=== PATIENT | male | born 1965 | race Caucasian/White ===

== ENCOUNTER 2019-10-17 20:07 | Emergency (ER) | payer SELFPAY ==
--- NOTE | ~2019-10-17 | XR_ITS ---
EXAMINATION: XR chest 1V portable DATE: 10/17/2019 20:33 INDICATION: Fall down stairs. Cough. TECHNIQUE: frontal view of the chest was obtained. COMPARISON: Chest radiograph dated 09/18/2005 FINDINGS: The lungs remain clear with no focal airspace opacities, pulmonary edema, pleural effusion or pneumot horax. The cardiomediastinal silhouette is normal. Visualized bones and soft tissues are unremarkable . IMPRESSION: 1. Normal chest radiograph. Reviewed, dictated and finalized at location A. IMPRESSION: 1. Normal chest radiograph.
--- NOTE | ~2019-10-17 | CT_ITS ---
EXAMINATION: CT cervical spine wo con DATE: 10/17/2019 20:31 INDICATION: Fall down stairs while intoxicated with loss of consciousness. TECHNIQUE: Computed tomography (CT) of the cervical spine was performed without intravenous contrast. Automated exposure control and iterative reconstruction technique were employed. The dose-length pro duct was 469.91 mGy-cm. COMPARISON: Radiograph dated 08/30/2007 FINDINGS: Straightening of the normal cervical lordosis. Mild cervical thoracic levocurvature. 2 mm retrolisthe sis C5 on C6. Vertebral body heights are normal. No acute fracture. Moderate to severe disc height lo ss at C5-C6 and C6-C7. Mild disc height loss at C7-T1 through T2-T3. Atherosclerotic calcification is at the bilateral carotid bulbs. 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 T he following disc levels are specifically discussed: C2-C3: The disc does not extend beyond the endplate margin. There is mild bilateral uncovertebral silvia nt osteoarthritis. There is mild right and moderate left facet joint osteoarthritis. There is mild le ft and minimal right neural foraminal stenosis. There is no central canal stenosis. C3-C4: The disc does not extend beyond the endplate margin. There is mild left and minimal right unco vertebral joint osteoarthritis. There is mild left and mild to moderate right facet joint osteoarthri tis. There is minimal left neural foraminal stenosis. There is no central canal stenosis. C4-C5: Disc is mildly bulging. There is mild bilateral uncovertebral joint osteoarthritis. There is m inimal bilateral facet joint osteoarthritis. There is minimal right neural foraminal stenosis. There is mild central canal stenosis. C5-C6: Disc is bulging. There is severe bilateral uncovertebral joint osteoarthritis. There is mild b ilateral facet joint osteoarthritis. There is mild left and mild to moderate right neural foraminal s tenosis. There is mild central canal stenosis. C6-C7: Disc is bulging. There is severe bilateral uncovertebral joint osteoarthritis. There is mild b ilateral facet joint osteoarthritis. There is mild bilateral neural foraminal stenosis. There is mild central canal stenosis. C7-T1: The disc does not extend beyond the endplate margin. There is no uncovertebral joint osteoarth ritis. There is mild to moderate left and severe right facet joint osteoarthritis. There is mild righ t neural foraminal stenosis. There is no central canal stenosis. IMPRESSION: 1. Moderate cervical spondylosis. No acute osseous abnormality. Reviewed, dictated and finalized at location A.
--- NOTE | ~2019-10-17 | CT_ITS ---
EXAMINATION: CT brain wo con DATE: 10/17/2019 20:31 INDICATION: Fall down stairs with loss of consciousness TECHNIQUE: Computed tomography (CT) of the head was performed without intravenous contrast. Sagittal and coronal reconstructions were performed. The mA was adjusted according to patient size. Iterative reconstruction technique was employed. The dose-length product was 605.33 mGy-cm. COMPARISON: None FINDINGS: No fracture. No acute intracranial hemorrhage, acute infarction or abnormal extra axial fluid collect ion. Ventricles are normal and symmetric. No mass/mass effect. Disconjugate gaze. Orbits are otherwis e normal. Mastoid air cells and middle ear cavities are clear. Mild mucosal thickening in the bilater al ethmoid and sphenoid sinuses. IMPRESSION: 1. No fracture or acute intracranial process. Reviewed, dictated and finalized at location A.
--- NOTE | 2019-10-17 20:12 | ECG_ITS ---
Measurements Intervals [place] Rate: 106 P: 130 MD: 199 QRS: 75 QRSD: 93 T: 52 QT: 365 QTc: 485 Interpretive Statements SINUS TACHYCARDIA POSSIBLE LEFT VENTRICULAR HYPERTROPHY ABNORMAL ECG Electronically Signed On 10-18-2019 7:12:20 CDT by Fortunato Louise D.O.
[2019-10-17 20:14] VITALS: BP 143/102; PULSE 115; RESP 18; TEMP 36.2; O2SAT 94
[2019-10-17] MEDS: LACTATED RINGERS 1,000 ML 999 ML IV CONT (20:34)
--- NOTE | 2019-10-17 20:40 | ED.FALL ---
HPI - Fall General Chief Complaint: Fall Stated Complaint: fall down stairs/ OD? Source: EMS Mode of arrival: EMS Limitations: intoxication History of Present Illness HPI Narrative: This patient is a 52 yo male who presents from home Via for evaluation after fall down stairs. EMS states they were called because patient fell down stairs and he was unresponsive. EMS gave patient 10 mg narcan before he would respond. Patient admits to drinking alcohol tonight and drinking daily, but he denies drug use. He denies any complaints. He does not remember how or why he fell down the stairs. He states he does not remember anything . He is in c collar MD complaint: fall Fall from: down stairs (#) Related Data Home Medications Medication Instructions Recorded Confirmed hydrocodone-acetaminophen [Vicodin tablet 10/17/19 ] Allergies Allergy/AdvReac Type Severity Reaction Status Date / Time No Known Allergies Allergy Mild Unverified 10/17/19 20:20 Review of Systems Review of Systems: All systems reviewed & are unremarkable except as noted in HPI and below Constitutional: Constitutional: Denies chills and Denies fever(s) Cardiovascular: Cardiovascular: Denies chest pain and Denies radiating jaw, neck or arm pain Respiratory: Respiratory: Reports cough (chronic cough) and Denies dyspnea Gastrointestinal: Gastrointestinal: Denies abdominal pain and Denies nausea Musculoskeletal: Musculoskeletal: Denies back pain Neurologic: Denies dizziness, Denies headache(s), Denies focal weakness and Denies weakness PMFSH Past Medical History Medical History (Updated 10/18/19 @ 00:00 by Background Daemon) Patient denies medical problems Family History Family History (Updated 01/26/16 @ 23:19 by DOCTOR UNKNOWN) Mother Family history of diabetes mellitus in first degree relative Social History Social History (Updated 10/17/19 @ 20:47 by Nia Powers MD) Smoking packs per day: 1 Smoking cigarettes per day: 20.0 Smoking status: Current every day smoker Alcohol intake: current Substance use: never Gender identity (if verbalized by the patient): Male Exam Const: General: no acute distress and alert Orientation/consciousness: patient oriented x3 HENMT: Head: normocephalic and atraumatic Ears: external ears normal General nose exam: Normal external nose present Face and sinus: normal facial exam, sinuses nontender and face symmetric Mouth: Yes Normal oral and palatal mucosa present, Yes lip normal and Yes oropharynx normal Eyes: Pupils: Equal, round and reactive pupils present EOM: EOMs intact bilaterally Neck: Other: in cervical collar Chest: Chest palpation & inspection: normal inspection of the chest and no tenderness Resp: Effort & Inspection: normal respiratory effort and no retractions Auscultation: clear to auscultation bilaterally Cardio: Rate: tachycardic Rhythm: regular rhythm Heart sounds: no murmurs Skin: General skin exam: normal color Rashes: no rashes Neuro: General: patient oriented x3, moves all extremities and CN's II-XI intact bilaterally Course Reevaluation(s) Reevaluation #1: Patient is standing up and walking around room with steady gait. He has no complaints and he is asking to go home. I discussed results with patient and he states he only take 3 norcos a day and he does admit to cocaine use. Date: 10/17/19 Time: 22:06 Vital Signs Vital signs: Vital Signs Temperature 97.1 F L 10/17/19 20:14 Pulse Rate 115 H 10/17/19 20:14 Respiratory Rate 18 10/17/19 20:14 Blood Pressure 143/102 H 10/17/19 20:14 Pulse Oximetry 94 10/17/19 20:14 Temperature 97.1 F L 10/17/19 20:14 Pulse Rate 115 H 10/17/19 20:14 Respiratory Rate 18 10/17/19 20:14 Blood Pressure 143/102 H 10/17/19 20:14 Pulse Oximetry 94 10/17/19 20:14 MDM - Fall Lab Data Attestation: I reviewed the patient's lab results. Result diagrams: 10/17/19
[2019-10-17 20:56] LABS: Basophils Absolute Auto 0.1 K/mm3 (0.0-0.1); Basophils Percent Auto 0.6 % (0.2-1.2); Eosinophils Absolute Auto 0.2 K/mm3 (0-0.3); Eosinophils Percent Auto 2.2 % (0-4.4); Hematocrit 42.9 % (42.0-52.0); Hemoglobin 14.2 g/dL (14.0-18.0); Immature Granulocyte Absolute 0.06 K/mm3 (0.00-0.031); Immature Granulocyte Percent A 0.7 % (0-0.5); Lymphocytes Absolute Auto 2.58 K/mm3 (0.9-3.2); Lymphocytes Percent Auto 28.9 % (18.3-44.2); Mean Corpuscular HGB Conc 33.1 g/dl (32-36); Mean Corpuscular Volume 96.6 fl (80-100); Mean Platelet Volume 10.5 fl (7.4-10.4); Monocytes Absolute Auto 0.5 K/mm3 (0.1-0.6); Monocytes Percent Auto 5.4 % (2.6-8.5); Neutrophils Absolute Auto 5.6 K/mm3 (1.3-6.7); Neutrophils Percent Auto 62.2 % (45.5-73.1); Platelet Count Result 252 k/mm3 (150-375); Red Blood Count 4.44 M/mm3 (4.6-6.20); Red Cell Distribution Width 12.4 % (11.5-14.5); White Blood Count 8.9 K/mm3 (4.5-10.0)
--- NOTE | 2019-10-17 20:58 | PC.NURSE ---
spoke with patient verbal ok given by patient to give information to chung contreras. chung called and given update on patient condition.
[2019-10-17 21:00] LABS: Add Urine Microscopic? YES; Appearance Urine Clear (Clear); Bilirubin Urine Negative (Negative); Blood Urine 1+ (Negative); Color Urine Straw (Yellow); Glucose Urine UA 2+ mg/dL (Negative); Ketones Urine Negative (Negative); Leukocyte Esterase Ur Negative LEU/UL (Negative); Nitrate Urine Negative (Negative); Protein Urine 1+ mg/dL (Negative); Specific Grav Ur 1.012 (1.001-1.035); Squamous Epithelial Cell Urine Rare /hpf (Few); Urobilinogen Urine Negative mg/dL (<2.0); WBC Urine 0-3 /hpf
[2019-10-17 21:04] LABS: Prothrombin Time 12.4 Seconds (11.1-14.7)
[2019-10-17 21:08] LABS: Alanine Aminotransferase 27 U/L (4-50); Albumin Level 4.6 g/dL (3.5-5.1); Alkaline Phosphatase 66 U/L (38-126); Aspartate Amino Transferase 34 U/L (17-59); Bilirubin,Total 0.2 mg/dL (0.2-1.3); Blood Urea Nitrogen 9 mg/dL (9-20); Calcium 8.4 mg/dL (8.4-10.2); Carbon Dioxide 21 mmol/L (22-30); Chloride 103 mmol/L (98-107); Estimated Glomerular Filt Rate > 60; Ethanol 277 mg/dL (<10); Glucose 165 mg/dL (75-110); Potassium 3.5 mmol/L (3.4-5.0); Sodium 139 mmol/L (137-145)
[2019-10-17 21:10] LABS: Amphetamine Screen Urine Negative (Negative); Barbiturate Screen Urine Negative (Negative); Benzodiazepines Screen Urine Negative (Negative); Cannabinoid Screen Urine Negative (Negative); Cocaine Screen Urine Positive (Negative); Methadone Screen Urine Negative (Negative); Opiate Screen Urine Positive (Negative); Phencyclidine Screen Urine Negative (Negative)
--- NOTE | 2019-10-17 21:40 | PC.NURSE ---
pt removed c collar himself and states he wants to sign himself out. made aware. pt needs to have someone here to come in and pick him up.
--- NOTE | 2019-10-17 21:40 | PC.NURSE ---
Called Chastity Bishop ([phone]) left v-message to contact or someone to come and nut picker patient and/or to return call.
--- NOTE | 2019-10-24 05:52 | PC.NURSE ---
LATE ENTRY This note is being entered to document information to the patient's record. The following information was omitted on 10/17/19, LR STOP TIME 9979.
== END 2019-10-17 22:30 | disposition home or self-care (01) ==
PROVIDERS: Emergency Provider General Practice; PCP Internal Medicine
DX: F10.129 Alcohol abuse with intoxication, unspecified (principal); Y90.8 Blood alcohol level of 240 mg/100 ml or more; F17.210 Nicotine dependence, cigarettes, uncomplicated; R00.0 Tachycardia, unspecified; R94.31 Abnormal electrocardiogram [ECG] [EKG]; M47.812 Spondylosis without myelopathy or radiculopathy, cervical region; W10.9XXA Fall (on) (from) unspecified stairs and steps, initial encounter
CPT/HCPCS: 36415; 70450; 71045; 72125; 80053; 80307; 81001; 83735; 85025; 85610; 85730; 93005; 96360; 99284; J7120; L0140

== ENCOUNTER 2021-10-09 16:56 | Inpatient (IN) | payer OTHER, SELFPAY ==
[2021-10-09] VITALS (7 sets, daily range): BP systolic 112–157; BP diastolic 85–100; PULSE 84–108; RESP 16–20; TEMP 36.6–36.7; O2SAT 95–99; BMI 24.5
--- NOTE | ~2021-10-09 | US_ITS ---
EXAMINATION: US abdomen limited DATE: 10/10/2021 17:36 INDICATION: Elevated LFTs. TECHNIQUE: Multiple grayscale and Doppler ultrasound images of the abdomen were obtained. COMPARISON: None available FINDINGS: The head and body of the pancreas are normal. The pancreatic tail is obscured by bowel gas. The liver measures 23.9 cm. The liver demonstrates increased echogenicity, heterogenous echotexture, and decreased through transmission. No liver mass. No surface nodularity. Normal hepatopetal flow in the main portal vein. No pericholecystic fluid or stones. Negative sonographic Wren sign. Gallblad micheline wall thickness 4 mm. The normal common bile duct measures 4 mm. 4.1 cm simple right renal cyst. IMPRESSION: 1. Hepatomegaly. 2. Increased liver echogenicity which can be seen in steatosis, hepatitis, and fibrosis. 3. Nonspecific gallbladder wall thickening. 4. Simple right renal cyst. Reviewed, dictated and finalized at location K.
--- NOTE | 2021-10-09 17:04 | ED.SYNCOPE ---
HPI - Syncope General Chief Complaint: Dizziness Stated Complaint: Weakness Time Seen by Provider: 10/09/21 16:59 Source: patient Mode of arrival: EMS Limitations: no limitations History of Present Illness HPI narrative: Pt states he felt like he was going to pass out earlier. Pt had no CP or palpitations. Pt denies vomiting or diarrhea or dark stools. Pt has not had similar episodes in past. MD complaint: felt faint and almost passed out Prodromal symptoms: lightheaded Context: at rest Injuries sustained associated with event: none Current symptoms: none Related Data Home Medications Medication Instructions Recorded Confirmed trazodone 50 mg tablet 50 mg PO QHS PRN 08/17/21 09/03/21 Allergies Allergy/AdvReac Type Severity Reaction Status Date / Time No Known Allergies Allergy Mild Verified 10/09/21 17:04 Review of Systems Review of Systems: All systems reviewed & are unremarkable except as noted in HPI and below PMFSH Past Medical History Medical History BMI 24.0-24.9, adult Carpal tunnel syndrome on both sides Patient denies medical problems Rotator cuff tear arthropathy of right shoulder Seizure disorder Family History Family History Mother Family history of diabetes mellitus in first degree relative Father No problems noted. Sibling No problems noted. Social History Social History Smoking packs per day: 1 Smoking cigarettes per day: 20.0 Tobacco type: cigarettes Alcohol intake: current Substance use: never Gender identity (if verbalized by the patient): Male Exam Const: General: no acute distress Orientation/consciousness: patient oriented x3 HENMT: Head: normal to inspection Eyes: Conjunctivae: conjunctivae normal Pupils: Equal, round and reactive pupils present Neck: Neck: normal visual inspection Chest: Chest palpation & inspection: normal inspection of the chest Resp: Effort & Inspection: normal respiratory effort Auscultation: clear to auscultation bilaterally Cardio: Rate: regular rate Rhythm: regular rhythm GI: GI Palp: Yes Soft to palpation Auscultation: normal bowel sounds Skin: General skin exam: normal color Neuro: General: patient oriented x3, moves all extremities, no meningeal signs and no focal motor deficits Speech: normal speech Extrem: General: normal to inspection and no clubbing, cyanosis or edema Psych: Mental Status: mental status grossly normal Thought content: Yes Normal thought content present Course Vital Signs Vital signs: Vital Signs Temperature 97.8 F 10/09/21 16:58 Pulse Rate 88 10/09/21 16:58 Respiratory Rate 16 10/09/21 16:58 Blood Pressure 112/87 10/09/21 16:58 Pulse Oximetry 98 10/09/21 16:58 Temperature 97.8 F 10/09/21 16:58 Pulse Rate 84 10/09/21 18:00 Respiratory Rate 16 10/09/21 18:00 Blood Pressure 123/85 10/09/21 18:00 Pulse Oximetry 97 10/09/21 18:00 MDM - Syncope Lab Data Result diagrams: 10/09/21 17:21 10/09/21 17:21 Labs: Lab Results 10/09/21 10/09/21 10/09/21 Range/Units 17:21 17:21 17:21 WBC 5.6 (4.5-10.0) K/mm3 RBC 4.28 L (4.6-6.20) M/mm3 Hgb 14.8 (14.0-18.0) g/dL Hct 37.0 L (42.0-52.0) % MCV 86.4 (80-100) fl MCH 34.6 H (26-34) pg MCHC 40.0 H (32-36) g/dl RDW 14.9 H (11.5-14.5) % Plt Count 136 L (150-375) k/mm3 MPV 11.7 H (7.4-10.4) fl Immature Gran % (Auto) 0.4 (0-0.5) % Neut % (Auto) 71.2 (45.5-73.1) % Lymph % (Auto) 22.7 (18.3-44.2) % Chambers % (Auto) 4.8 (2.6-8.5) % Eos % (Auto) 0.2 (0-4.4) % Baso % (Auto) 0.7 (0.2-1.2) % Lymph # (Auto) 1.28 (0.9-3.2) K/mm3 Chambers # (Auto) 0.3 (0.1-0.6) K/mm3 Eos # (Auto) 0.0 (0-0.3) K/mm3 Baso # (Auto) 0.0 (0.0
--- NOTE | 2021-10-09 17:08 | ECG_ITS ---
Measurements Intervals [place] Rate: 87 P: 20 NV: 149 QRS: 81 QRSD: 92 T: 77 QT: 408 QTc: 493 Interpretive Statements SINUS RHYTHM LEFT VENTRICULAR HYPERTROPHY ABNORMAL ECG COMPARED TO ECG 10/17/2019 20:36:14 SINUS RHYTHM NOW PRESENT Electronically Signed On 10-09-2021 18:09:59 CDT by Kayode Abbott M.D.
[2021-10-09] MEDS: SODIUM CHLORIDE 0.9% IV 1,000 ML 999 ML IV CONT (17:25)
[2021-10-09 17:46] LABS: Alanine Aminotransferase 378 U/L (4-50); Albumin Level 2.9 g/dL (3.5-5.1); Alkaline Phosphatase 344 U/L (38-126); Anion Gap 16 mmol/L (8-16); Bilirubin,Total 3.1 mg/dL (0.2-1.3); Blood Urea Nitrogen 23 mg/dL (9-20); Calcium 6.9 mg/dL (8.4-10.2); Carbon Dioxide 14 mmol/L (22-30); Chloride 102 mmol/L (98-107); Estimated CRCL calculation 53 ml/min; Estimated Glomerular Filt Rate 53; Glucose 109 mg/dL (65-110); Magnesium 1.3 mg/dL (1.6-2.3); Potassium 4.2 mmol/L (3.4-5.0); Sodium 132 mmol/L (137-145)
[2021-10-09 17:54] LABS: Aspartate Amino Transferase 747 U/L (17-59); Basophils Percent Auto 0.7 % (0.2-1.2); Eosinophils Percent Auto 0.2 % (0-4.4); Ethanol 291 mg/dL (<10); Hemoglobin 14.8 g/dL (14.0-18.0); Immature Granulocyte Absolute 0.02 K/mm3 (0.00-0.031); Immature Granulocyte Percent A 0.4 % (0-0.5); Lymphocytes Absolute Auto 1.28 K/mm3 (0.9-3.2); Lymphocytes Percent Auto 22.7 % (18.3-44.2); Mean Corpuscular Hemoglobin 34.6 pg (26-34); Mean Corpuscular Volume 86.4 fl (80-100); Mean Platelet Volume 11.7 fl (7.4-10.4); Monocytes Absolute Auto 0.3 K/mm3 (0.1-0.6); Monocytes Percent Auto 4.8 % (2.6-8.5); Neutrophils Percent Auto 71.2 % (45.5-73.1); Platelet Count Result 136 k/mm3 (150-375); Red Blood Count 4.28 M/mm3 (4.6-6.20); Red Cell Distribution Width 14.9 % (11.5-14.5); White Blood Count 5.6 K/mm3 (4.5-10.0)
[2021-10-09 17:55] LABS: Troponin I 0.033 ng/mL (0.000-0.034)
[2021-10-09 18:35] LABS: Anisocytosis 1+ (NORMAL); Large Platelets Present; Platelet Estimate Decreased (Adequate); Stomatocytes 2+ (NORMAL)
[2021-10-09] MEDS: CALCIUM CHLOR 1,000MG/100ML NS 1,000 MG/100 ML BAG 100 MG IVPB (19:26)
--- NOTE | 2021-10-09 20:54 | ADMGEN ---
This patient, Gerald Lewis, was admitted to IMU Room 202- at 2053. Patient/family oriented to hospital policies and general routines including ID bracelet, bed and alarms, visiting hours, pain management, procedures, bathroom and other care routines, personal items, smoking policy, room service/diet, and visiting hours. Information on how to activate the Rapid Response Team has been discussed. Patient/Family are encouraged to report perceived risks to care and to ask questions if they do not understand what they are told or what they should do.
--- NOTE | 2021-10-09 22:00 | PM.IMHP ---
H&P: HPI History of Present Illness Date/Time: 10/09/21 22:00 Chief Complaint: Lightheadedness and weakness. Narrative: This is a 55-year-old male smoker with a longstanding history of alcoholism, seizures which were possibly related to alcohol withdrawal, hypertension, and hyperlipidemia who presented to the ED via EMS for evaluation of lightheadedness and weakness. He stopped taking his medications about 1 month ago at which time he also started drinking again. He does not seem forthcoming with the amount of alcohol he is consuming at this time but had previously drank up to 2 fifths of whiskey a day. Today he tells me he only took a couple of shots early this morning however his alcohol level today on arrival was 291. In any event, just prior to arrival he was at a friend's house when suddenly felt warm, nauseated, lightheaded, dizzy, and profoundly weak. For some reason he thought that he was going to have a seizure however he did not. He laid on the back of his car until he felt better and drove himself home to rest. Daughter apparently found him sitting in the car, unresponsive and she called 911. He was alert and oriented x4 on EMS arrival and was able to ambulate to the stretcher. Vital signs were stable on arrival although his blood pressures have been running high. Pertinent labs include a sodium of 142, chloride 102, carbon dioxide 14, anion gap 16, BUN 23, creatinine 1.40, calcium 6.9, magnesium 1.3, total bili III 0.1, AST 747, ALT 38, and alkaline phosphatase 344. The patient is being admitted in this setting for IV fluid rehydration and electrolyte replacement. At the time my evaluation he is feeling better and he is quite chatty and in good spirits. He is not feeling lightheaded or vertiginous at this time. He denies headache and neck ache. No auditory visual changes. No focal weakness or paresthesias. No chest pain or shortness of breath. He had some nausea earlier with dry heaves but no vomiting. He had diarrhea last week but that has resolved. No dysuria. Review of Systems Review of Systems: Twelve systems were reviewed. Patient reports having history of seizure, possibly related to alcohol withdrawal but he is not certain. He was on seizure medication for a period of time before he took himself off that. As mentioned above he took himself off of all his medication but states he takes his trazodone although I do not know if he gets that from friends are off the street as that has not been prescribed for him for a couple of months. He denies hallucinations, shakes, and sweats at this time. Except as documented, all other systems were reviewed and are negative. [facility] Past Medical History Medical History (Updated 10/10/21 @ 00:19 by Divina Lucas PA-C) Alcoholism B12 deficiency Hyperlipidemia Hypertension Seizure disorder Tobacco abuse Vitamin D deficiency Surgical History Surgical History History of bilateral carpal tunnel release History of repair of right rotator cuff Family History Family History Mother Family history of diabetes mellitus in first degree relative Cancer Cerebrovascular accident Father Spleen cancer Asthma Sibling No problems noted. Social History Social History (Updated 10/10/21 @ 00:17 by Divina Lucas PA-C) Social History: Surrogate decision maker: Sangeeta Lewis, mother. Code status: Full code. Smoking packs per day: 1 Smoking cigarettes per day: 20.0 Smoking status: Current every day smoker Tobacco type: cigarettes Alcohol intake: current Alcohol use details: Up to 2 5th of whiskey a day. Substance use: former Substance use type: marijuana Other substance usage details: street pain meds Spiritual care concerns: No Meds Home Medications and Allergies Home Medications Medication Instructions Recorded Confirmed Type lisin
[2021-10-10] VITALS (16 sets, daily range): BP systolic 136–162; BP diastolic 81–99; PULSE 80–116; RESP 12–24; TEMP 36.7–37.6; O2SAT 96–99
[2021-10-10] MEDS: MAGNESIUM SULF 2 GM/WATER 50ML 2 GM/50 ML BAG IVPB (00:40)
[2021-10-10] MEDS: THIAMINE HCL 200 MG/2 ML VIAL 100 MG IV PUSH (00:40)
[2021-10-10] MEDS: traZODone HCL 50 MG TABLET PO ×2 (00:40→20:44)
[2021-10-10 00:51] LABS: Creatine Kinase 157 U/L (55-170)
[2021-10-10 00:54] LABS: INR 1.1; Prothrombin Time 14.2 Seconds (11.1-14.7)
[2021-10-10 00:55] LABS: Partial Thromboplastin Time 26.7 SECONDS (22.3-36.8)
[2021-10-10 00:57] LABS: Magnesium 1.1 mg/dL (1.6-2.3)
[2021-10-10 01:07] LABS: Troponin I 0.027 ng/mL (0.000-0.034)
[2021-10-10 01:43] LABS: Anion Gap 16 mmol/L (8-16); Blood Urea Nitrogen 21 mg/dL (9-20); Calcium 7.7 mg/dL (8.4-10.2); Carbon Dioxide 15 mmol/L (22-30); Chloride 103 mmol/L (98-107); Estimated CRCL calculation 73 ml/min; Estimated Glomerular Filt Rate > 60; Glucose 123 mg/dL (65-110); Sodium 134 mmol/L (137-145)
[2021-10-10] MEDS: LORazepam INJ (*CRX) 2 MG/ML VIAL 1 MG IV PUSH ×3 (01:54→14:13)
[2021-10-10] MEDS: SODIUM CHLORIDE 0.9% IV 2,200 ML/1,000 ML BAG 999 ML IV CONT ×2 (01:55→02:54)
[2021-10-10 03:34] LABS: Reflex Lactic Acid Yes or No Add Lactic
[2021-10-10] MEDS: SODIUM CHLORIDE 0.9% IV 1,000 ML 100 ML IV CONT (03:56)
[2021-10-10 05:13] LABS: INR 1.2; Prothrombin Time 14.6 Seconds (11.1-14.7)
[2021-10-10 05:14] LABS: Partial Thromboplastin Time 27.2 SECONDS (22.3-36.8)
[2021-10-10 05:17] LABS: Appearance Urine Clear (Clear); Bilirubin Urine Negative (Negative); Blood Urine 1+ (Negative); Color Urine Yellow (Yellow); Glucose Urine UA Negative (Negative); Ketones Urine Negative (Negative); Leukocyte Esterase Ur Negative LEU/UL (Negative); Nitrate Urine Negative (Negative); Protein Urine Negative (Negative); Specific Grav Ur 1.025 (1.001-1.035); pH Urine 6.5 (5.0-9.0)
[2021-10-10 05:19] LABS: Lactic Acid 2.2 mmol/L (0.7-2.1)
[2021-10-10 05:31] LABS: Alanine Aminotransferase 324 U/L (4-50); Albumin Level 2.7 g/dL (3.5-5.1); Alkaline Phosphatase 340 U/L (38-126); Anion Gap 12 mmol/L (8-16); Bilirubin,Total 4.7 mg/dL (0.2-1.3); Blood Urea Nitrogen 15 mg/dL (9-20); Calcium 6.9 mg/dL (8.4-10.2); Carbon Dioxide 13 mmol/L (22-30); Chloride 106 mmol/L (98-107); Estimated CRCL calculation 90 ml/min; Estimated Glomerular Filt Rate > 60; Glucose 85 mg/dL (65-110); Magnesium 1.3 mg/dL (1.6-2.3); Phosphorus 3.9 mg/dL (2.5-4.5); Potassium 3.6 mmol/L (3.4-5.0); Sodium 131 mmol/L (137-145)
[2021-10-10 05:32] LABS: Add Urine Microscopic? NO
[2021-10-10 05:58] LABS: Hepatitis B Surface Antigen Negative (Negative)
[2021-10-10 06:04] LABS: HAV RESULT Negative (Negative); Hepatitis B Core IgM Result Negative (Negative)
[2021-10-10 06:16] LABS: Hepatitis C Virus Antibody Negative (Negative)
[2021-10-10 06:27] LABS: Aspartate Amino Transferase 1145 U/L (17-59)
--- NOTE | 2021-10-10 07:17 | PM.IMPN ---
Progress Note: A&P Assessment and Plan (1) Unresponsive episode: Code(s): R41.89 - Other symptoms and signs involving cognitive functions and awareness Status: Acute Assessment and Plan: He has been stable, alert, and oriented since arrival. Telemetry reviewed, no abnormal findings. Will continue to monitor on telemetry overnight to rule out cardiac dysrhythmia. Initiate seizure precautions. (2) Acute kidney injury: Code(s): N17.9 - Acute kidney failure, unspecified Status: Acute Assessment and Plan: Patient was rehydrated overnight with IV fluids, creatinine has normalized, CK was within normal limits. He appears euvolemic. Will continue to avoid nephrotoxic agents at this time, re-evaluate tomorrow. Continue strict in's and out's. IV Fluids dcrs'd to 75ml/hr. (3) Alcoholic hepatitis: Code(s): K70.10 - Alcoholic hepatitis without ascites Status: Acute Assessment and Plan: With acute kidney injury as well, CK within normal limits. Most likely his LFTs are elevated due to alcoholic hepatitis, AST elevated to 1145 today from 747 yesterday.Abdomen was tense on exam, though I question whether this was the result of his muscular tetany vs ascites. Right upper quadrant ultrasound ordered for this morning. Hepatitis panel normal. Coags within normal limits. (4) Hypocalcemia: Code(s): E83.51 - Hypocalcemia Status: Acute Assessment and Plan: Patient received calcium chloride in the emergency department. Calcium 6.9 today, corrected calcium 7.9. Will give calcium carbonate p.o. and will obtain EKG to check for QT prolongation. Negative Chvostek's sign. Repeat calcium level in a.m. (5) Hypomagnesemia: Code(s): E83.42 - Hypomagnesemia Status: Acute Assessment and Plan: Magnesium 1.3 today. Increased from 1.1 yesterday. Magnesium will be replaced and monitored. (6) Alcoholism: Code(s): F10.20 - Alcohol dependence, uncomplicated Status: Acute Assessment and Plan: Pt currently hypertensive, tachycardic, and tachypneic with reports that he hallucinated my presence at his bedside overnight. I suspect he is currently hallucinating, as he is responding to some external visual stimuli in the corner of his room. He reports additional episode of withdrawal seizures May of 2021, due to acute cessation of alcohol intake. He has received 1mg ativan per CIWA protocol, but CIWA score was still 11. Another 2mg Ativan given, and I transitioned his Librium from PRN to scheduled Q6 hrs, and continue his ativan PRN. We will continue to monitor him closely. Thiamine and folic acid supplementation initiated. (7) Hypertension: Code(s): I10 - Essential (primary) hypertension Status: Acute Assessment and Plan: Patient stopped all medications last month. His lisinopril and HCTZ are on hold due to having MARICHUY at time of admission, however his BUN and creatinine have normalized after rehydration. Will continue to monitor renal functions today, and if they remain normal, will re-initiate antihypertensives tomorrow. Subjective Date/time seen: 10/10/21 07:17 55-year-old male with history of alcohol abuse disorder, hypertension, and seizure disorder due to acute alcohol withdrawal, here after being discovered unresponsive by his daughter yesterday. He provided additional history today, in that May of 2021, his sister and he began to drink more, however he abruptly quit drinking and suffered a seizure on his job site, wherein he impaled himself onto a moving drill bit. He was hospitalized at [facility] in the ICU. He confirms he had a double shot of hard alcohol the morning of his admission here. He reports he did not sleep well last night, but does feel much better this morning. He asked if I was standing over his bed last night at 2 in the morning, and he keeps looking to his
[2021-10-10] MEDS: CALCIUM CARBONATE (OSCAL) 500 MG TABLET PO ×2 (08:45→17:22)
[2021-10-10 08:46] LABS: Hematocrit 30.6 % (42.0-52.0); Hemoglobin 12.7 g/dL (14.0-18.0); Mean Corpuscular Hemoglobin 35.5 pg (26-34); Mean Corpuscular Volume 85.5 fl (80-100); Mean Platelet Volume 12.4 fl (7.4-10.4); Platelet Count Result 112 k/mm3 (150-375); Red Blood Count 3.58 M/mm3 (4.6-6.20); Red Cell Distribution Width 15.8 % (11.5-14.5); White Blood Count 7.8 K/mm3 (4.5-10.0)
[2021-10-10] MEDS: FOLIC ACID 1 MG TABLET PO (08:46)
[2021-10-10] MEDS: THIAMINE HCL 100 MG TABLET PO (08:46)
[2021-10-10 08:47] LABS: Mean Corpuscular HGB Conc 41.5 g/dl (32-36)
--- NOTE | 2021-10-10 09:24 | ECG_ITS ---
Measurements Intervals [place] Rate: 97 P: -3 OR: 135 QRS: 77 QRSD: 93 T: 67 QT: 384 QTc: 489 Interpretive Statements SINUS RHYTHM LEFT VENTRICULAR HYPERTROPHY ABNORMAL ECG COMPARED TO ECG 10/09/2021 17:00:04 NO SIGNIFICANT CHANGES Electronically Signed On 10-10-2021 15:53:26 CDT by Kayode Abbott M.D.
[2021-10-10 10:07] LABS: Ammonia 13 umol/L (9-30)
[2021-10-10] MEDS: LORazepam INJ (*CRX) 2 MG/ML VIAL IV PUSH (11:03)
[2021-10-10] MEDS: MAGNESIUM CHLORIDE 64 MG TABLET PO (11:03)
[2021-10-10] MEDS: chlordiazePOXIDE (*CRX) 25 MG CAPSULE PO ×3 (11:04→23:43)
[2021-10-10 12:37] LABS: Glucose Point of Care 141 mg/dl (65-105)
[2021-10-10] MEDS: SODIUM CHLORIDE 0.9% IV 1,000 ML 75 ML IV CONT (14:57)
[2021-10-10 18:29] LABS: Glucose Point of Care 223 mg/dl (65-105)
[2021-10-11] VITALS (14 sets, daily range): BP systolic 123–158; BP diastolic 78–103; PULSE 80–117; RESP 16–20; TEMP 36.2–36.7; O2SAT 97–99
[2021-10-11] MEDS: LORazepam INJ (*CRX) 2 MG/ML VIAL 1 MG IV PUSH (03:04)
[2021-10-11] MEDS: SODIUM CHLORIDE 0.9% IV 1,000 ML 75 ML IV CONT ×2 (04:45→17:30)
[2021-10-11 06:04] LABS: Hematocrit 31.1 % (42.0-52.0); Immature Platelet Fraction Pct 19.2 % (0.9-11.2); Mean Corpuscular HGB Conc 35.4 g/dl (32-36); Mean Corpuscular Hemoglobin 32.5 pg (26-34); Mean Platelet Volume 12.4 fl (7.4-10.4); Platelet Count Result 88 k/mm3 (150-375); Red Blood Count 3.38 M/mm3 (4.6-6.20); Red Cell Distribution Width 15.7 % (11.5-14.5); White Blood Count 5.5 K/mm3 (4.5-10.0)
[2021-10-11 06:17] LABS: Alanine Aminotransferase 313 U/L (4-50); Albumin Level 2.9 g/dL (3.5-5.1); Alkaline Phosphatase 384 U/L (38-126); Anion Gap 5 mmol/L (8-16); Bilirubin,Total 3.4 mg/dL (0.2-1.3); Blood Urea Nitrogen 3 mg/dL (9-20); Calcium 7.4 mg/dL (8.4-10.2); Carbon Dioxide 28 mmol/L (22-30); Chloride 101 mmol/L (98-107); Estimated CRCL calculation 102 ml/min; Estimated Glomerular Filt Rate > 60; Glucose 113 mg/dL (65-110); Magnesium 1.1 mg/dL (1.6-2.3); Potassium 3.1 mmol/L (3.4-5.0); Sodium 134 mmol/L (137-145)
[2021-10-11 06:29] LABS: Aspartate Amino Transferase 937 U/L (17-59)
[2021-10-11] MEDS: chlordiazePOXIDE (*CRX) 25 MG CAPSULE PO ×3 (06:42→17:29)
--- NOTE | 2021-10-11 08:00 | PM.IMPN ---
Progress Note: A&P Assessment and Plan (1) Alcoholic hepatitis: Code(s): K70.10 - Alcoholic hepatitis without ascites Status: Acute Assessment and Plan: 10/10 Abd US showed: Hepatomegaly, increased liver echogenicity which can be seen in steatosis, hepatitis, and fibrosis. Nonspecific gallbladder wall thickening. Simple right renal cyst. Ammonia levels normal. No evidence of fulminant hepatitis at this point. Child-Peralta Score of 8. He continues to have transaminitis: AST 937, ALT 313, Alk Phos, 384. Most likely his LFTs are elevated due to alcoholic hepatitis. Thrombocytopenia and hypoalbuminemia are also present. INR 1.2. Counseled patient on alcohol cessation and available treatment programs, however patient is not interested in treatment at this point. - Continue to monitor LFTs - Consult placed to GI (2) Unresponsive episode: Code(s): R41.89 - Other symptoms and signs involving cognitive functions and awareness Status: Acute Assessment and Plan: Patient was reportedly found by his daughter unresponsive in his vehicle on 10/09. Patient has previously had with alcohol withdrawal seizures, as recently as May 2021. He does report alcohol intake the morning of 10/09, but he felt ill nonetheless. He has been stable, alert, and oriented since arrival. Telemetry reviewed, no abnormal findings today. No acute mental status changes. -CIWA and seizure precautions in place -continue to monitor telemetry. (3) Acute kidney injury: Code(s): N17.9 - Acute kidney failure, unspecified Status: Acute Assessment and Plan: Patient is back to baseline, and this MARICHUY has resolved. Patient continues to be hydrated with IV fluids. Patient was rehydrated with IV fluids, creatinine has normalized, CK was within normal limits. He appears euvolemic. - Continue strict in's and out's. - Continue IV fluids today. - Daily I & Os (4) Hypocalcemia: Code(s): E83.51 - Hypocalcemia Status: Acute Assessment and Plan: Calcium 7.4 today, corrected calcium 8.3. No QT prolongation seen on EKG. Significantly less tetany seen on exam today. - Continue calcium carbonate p.o. - Repeat calcium level in a.m. (5) Hypomagnesemia: Code(s): E83.42 - Hypomagnesemia Status: Acute Assessment and Plan: Magnesium still low at 1.1 today. 4g Mag sulfide given. Will continue to monitor. - Continue to monitor Mg to ideal levels >2 (6) Alcoholism: Code(s): F10.20 - Alcohol dependence, uncomplicated Status: Acute Assessment and Plan: CIWA scores have remained at 7, and pt required only one PRN dosing of ativan at 1400hrs yesterday. He has not required addition dosing of librium or ativan aside from his scheduled 25mg of librium. Patient informed me that he wishes to go home today, however I explained that we need to taper him off his CIWA protocol prior to discharge, which may take several days, and he still has several electrolyte and liver enzyme abnormalities that need to be corrected prior to discharge. He acknowledged understanding. - We will continue to monitor him closely. - Thiamine and folic acid supplementation continued. - Discuss alcohol treatment programs, patient is not interested and does not want to talk to anyone about options. (7) Hypertension: Code(s): I10 - Essential (primary) hypertension Status: Acute Assessment and Plan: His lisinopril and HCTZ were on hold due to having MARICHUY at time of admission, however his BUN and creatinine have normalized after rehydration. - Re-initiate Lisinopril/HCTZ today, as he is still hypertensive. - Continue to monitor renal functions. (8) Tobacco abuse: Code(s): Z72.0 - Tobacco use Status: Acute Assessment and Plan: Per nursing staff, patient was found smoking in his room yesterday, and his vape pen was confis
[2021-10-11] MEDS: MAGNESIUM SULF 4 GM/WATER100ML 4 GM/100 ML BAG IVPB (10:07)
[2021-10-11] MEDS: FOLIC ACID 1 MG TABLET PO (10:07)
[2021-10-11] MEDS: THIAMINE HCL 100 MG TABLET PO (10:07)
[2021-10-11] MEDS: CALCIUM CARBONATE (OSCAL) 500 MG TABLET PO ×2 (10:07→17:30)
[2021-10-11] MEDS: lisinopriL 20 MG TABLET PO (10:08)
[2021-10-11] MEDS: hydroCHLOROthiazide 12.5 MG CAPSULE PO (10:08)
[2021-10-11] MEDS: POTASSIUM CHLORIDE 20 MEQ PACKET (FOR LIQUID) PO (10:11)
[2021-10-11] MEDS: NICOTINE (*PBKC) 14 MG PATCH 1 PATCH TRANSDERM (12:06)
[2021-10-11 13:48] LABS: Glucose Point of Care 165 mg/dl (65-105)
--- NOTE | 2021-10-11 14:41 | WPDGICN ---
Assessment and Plan Assessment and plan (1) Alcoholic hepatitis: Code(s): K70.10 - Alcoholic hepatitis without ascites Status: Acute Assessment and Plan: Patient with markedly elevated LFTs most consistent with alcoholic hepatitis. Patient is developed thrombosed cytopenia during follow-up at our hospital. Also noted to have a low albumin level. Ultrasound of the gall gallbladder revealed what appears to be a fatty liver. And hepatomegaly. Plan is for patient have strict alcohol avoidance. Long discussion with patient regarding alcoholic hepatitis and possibility for ultimate cirrhosis and scar tissue within liver. Risk factor for deterioration with increased bleeding poor mental status and higher risk for cancer of the liver. At this point with alcohol abstinence suggest follow-up LFTs. This will need to continue after discharge. Getting established with a support group is strongly recommended. (2) Unresponsive episode: Code(s): R41.89 - Other symptoms and signs involving cognitive functions and awareness Status: Acute Assessment and Plan: Patient at risk for alcohol withdrawal seizures. Appears he may passed out from alcohol or substance abuse. Currently alert and oriented. (3) Alcoholism: Code(s): F10.20 - Alcohol dependence, uncomplicated Status: Acute Assessment and Plan: Alcohol rehab strongly suggested. GI Consult Note Consult date/time: 10/11/21 14:41 HPI: Gerald Lewis is a 55 year old male I am asked to see for hepatitis. Patient has a long history of heavy alcohol intake. He has had difficulties with alcohol withdrawal seizures in the past. Admitted to the hospital because of being found unresponsive in his vehicle. He was noted to have markedly elevated LFTs. Patient denies any abdominal pain. His family history is noncontributory. Patient denies any known exposure to viral hepatitis. Review of Systems Review of Systems: All systems reviewed & are unremarkable except as noted in HPI and below PMFSH Past Medical History Medical History (Updated 10/11/21 @ 11:27 by Jennifer Kelly PA-C) Alcoholism B12 deficiency Hyperlipidemia Hypertension Seizure disorder Tobacco abuse Vitamin D deficiency Surgical History Surgical History History of bilateral carpal tunnel release History of repair of right rotator cuff Family History Family History Mother Family history of diabetes mellitus in first degree relative Cancer Cerebrovascular accident Father Spleen cancer Asthma Sibling No problems noted. Social History Social History (Updated 10/10/21 @ 00:17 by Divina Lucas PA-C) Social History: Surrogate decision maker: Sangeeta Lewis, mother. Code status: Full code. Smoking packs per day: 1 Smoking cigarettes per day: 20.0 Smoking status: Current every day smoker Tobacco type: cigarettes Alcohol intake: current Alcohol use details: Up to 2 5th of whiskey a day. Substance use: former Substance use type: marijuana Other substance usage details: street pain meds Spiritual care concerns: No Meds Home Medications and Allergies Home Medications Medication Instructions Recorded Confirmed Type lisinopril 20 1 tablet PO DAILY #30 tablet 08/17/21 10/09/21 Rx mg-hydrochlorothiazide 12.5 mg tablet rosuvastatin 20 mg tablet 20 mg PO DAILY #60 tablet 08/17/21 10/09/21 Rx trazodone 50 mg tablet 50 mg PO QHS 08/17/21 10/09/21 History escitalopram oxalate 20 mg tablet 20 mg PO DAILY #30 tablet 09/03/21 10/09/21 Rx hydroxyzine HCl 10 mg tablet 10 mg PO BID PRN #20 tablet 09/03/21 10/09/21 Rx Allergies Allergy/AdvReac Type Severity Reaction Status Date / Time No Known Allergies Allergy Mild Verified 10/09/21 17:04 Vital Signs Vital Signs - 24 hr 10/10/21 1
[2021-10-11] MEDS: traZODone HCL 50 MG TABLET PO (20:52)
[2021-10-11] MEDS: GABAPENTIN 100 MG CAPSULE PO (20:52)
[2021-10-12] VITALS (10 sets, daily range): BP systolic 117–169; BP diastolic 69–94; PULSE 68–789; RESP 13–20; TEMP 36.4–36.5; O2SAT 98–100
[2021-10-12] MEDS: chlordiazePOXIDE (*CRX) 25 MG CAPSULE PO ×3 (00:01→13:22)
[2021-10-12 00:30] LABS: Glucose Point of Care 147 mg/dl (65-105)
[2021-10-12] MEDS: SODIUM CHLORIDE 0.9% IV 1,000 ML 75 ML IV CONT (05:22)
[2021-10-12 06:00] LABS: Alanine Aminotransferase 269 U/L (4-50); Alkaline Phosphatase 354 U/L (38-126); Anion Gap 8 mmol/L (8-16); Aspartate Amino Transferase 465 U/L (17-59); Blood Urea Nitrogen 5 mg/dL (9-20); Calcium 8.3 mg/dL (8.4-10.2); Carbon Dioxide 29 mmol/L (22-30); Chloride 100 mmol/L (98-107); Estimated CRCL calculation 90 ml/min; Estimated Glomerular Filt Rate > 60; Glucose 109 mg/dL (65-110); Magnesium 1.5 mg/dL (1.6-2.3); Potassium 3.8 mmol/L (3.4-5.0); Sodium 137 mmol/L (137-145)
[2021-10-12 06:04] LABS: Hematocrit 32.1 % (42.0-52.0); Hemoglobin 10.8 g/dL (14.0-18.0); Mean Corpuscular HGB Conc 33.6 g/dl (32-36); Mean Corpuscular Hemoglobin 31.7 pg (26-34); Mean Corpuscular Volume 94.1 fl (80-100); Mean Platelet Volume 12.7 fl (7.4-10.4); Platelet Count Result 71 k/mm3 (150-375); Red Blood Count 3.41 M/mm3 (4.6-6.20); Red Cell Distribution Width 15.9 % (11.5-14.5); White Blood Count 5.9 K/mm3 (4.5-10.0)
--- NOTE | 2021-10-12 07:23 | PM.IMPN ---
Progress Note: A&P Assessment and Plan (1) Alcoholic hepatitis: Code(s): K70.10 - Alcoholic hepatitis without ascites Status: Acute Assessment and Plan: LFTs are elevated due to alcoholic hepatitis. Thrombocytopenia, worsening today, and hypoalbuminemia (slightly improved) are also present. INR 1.2. Counseled patient on alcohol cessation and treatment programs, however patient is not interested in treatment at this point. GI consulted and assessed pt with alcoholic hepatitis and fatty liver. Discussed plan with patient for alcohol avoidance. GI also discussed ultimate cirrhosis, increased bleeding, poor mental status, and high risk for cancer. GI suggestions included alcohol rehab. 10/10 Abd US showed: Hepatomegaly, increased liver echogenicity which can be seen in steatosis, hepatitis, and fibrosis. Nonspecific gallbladder wall thickening. Simple right renal cyst. Ammonia levels normal. No evidence of fulminant hepatitis at this point. He continues to have transaminitis, improved today: AST 465 (937), ALT 269 (313), Alk Phos, 354 (384). - Follow up LFTs after discharge. - Care coordination provided resources regarding support groups. (2) Unresponsive episode: Code(s): R41.89 - Other symptoms and signs involving cognitive functions and awareness Status: Acute Assessment and Plan: Patient was reportedly found by his daughter unresponsive in his vehicle on 10/09. Patient has previously had with alcohol withdrawal seizures, as recently as May 2021. He does report alcohol intake the morning of 10/09, but he felt ill nonetheless. He has been stable, alert, and oriented since arrival. Telemetry reviewed, no abnormal findings today. No acute mental status changes. -CIWA and seizure precautions in place -continue to monitor telemetry. (3) Acute kidney injury: Code(s): N17.9 - Acute kidney failure, unspecified Status: Acute Assessment and Plan: Patient is back to baseline, and this MARICHUY has resolved. Patient continues to be hydrated with IV fluids. Patient was rehydrated with IV fluids, creatinine has normalized, CK was within normal limits. He appears euvolemic. - DC IV fluids today. (4) Hypocalcemia: Code(s): E83.51 - Hypocalcemia Status: Acute Assessment and Plan: Calcium 8.3 today, corrected calcium 9.1. - Continue calcium carbonate p.o. daily - Repeat calcium level in a.m. (5) Hypomagnesemia: Code(s): E83.42 - Hypomagnesemia Status: Acute Assessment and Plan: Magnesium improved to still low at 1.5 today. 2g Mag sulfide given. Will continue to monitor. - Continue to monitor Mg to ideal >2 (6) Alcoholism: Code(s): F10.20 - Alcohol dependence, uncomplicated Status: Acute Assessment and Plan: CIWA scores have remained at 7, and pt required only one PRN dosing of ativan at 0300hrs yesterday. - We will continue to monitor him closely. - Thiamine and folic acid supplementation continued. - Patient has been counseled on alcohol cessation and resources by Care coordination, myself, and Dr. Moser, gastroenterology. (7) Hypertension: Code(s): I10 - Essential (primary) hypertension Status: Acute Assessment and Plan: Lisinopril/HCTZ initiated yesterday, patient is normotensive. No change in renal functions. (8) Tobacco abuse: Code(s): Z72.0 - Tobacco use Status: Acute Assessment and Plan: Patient currently utilizing nicotine patch replacement. - Continue to assess patch for correct placement. (9) Hypokalemia: Code(s): E87.6 - Hypokalemia Status: Acute Assessment and Plan: Potassium normalized after 20 meq KCl PO yesterday. - Recheck potassium levels in a.m. Subjective Date/time seen: 10/12/21 07:23 Review of Systems Review of Systems: All systems reviewed & are unre
[2021-10-12 08:20] LABS: Glucose Point of Care 127 mg/dl (65-105)
[2021-10-12] MEDS: hydroCHLOROthiazide 12.5 MG CAPSULE PO (09:08)
[2021-10-12] MEDS: THIAMINE HCL 100 MG TABLET PO (09:08)
[2021-10-12] MEDS: FOLIC ACID 1 MG TABLET PO (09:08)
[2021-10-12] MEDS: CALCIUM CARBONATE (OSCAL) 500 MG TABLET PO (09:08)
[2021-10-12] MEDS: lisinopriL 20 MG TABLET PO (09:08)
[2021-10-12] MEDS: MAGNESIUM SULF 2 GM/WATER 50ML 2 GM/50 ML BAG IVPB (09:08)
[2021-10-12] MEDS: GABAPENTIN 100 MG CAPSULE PO ×2 (09:09→13:22)
[2021-10-12] MEDS: NICOTINE (*PBKC) 14 MG PATCH 1 PATCH TRANSDERM (09:09)
--- NOTE | 2021-10-12 10:15 | WPDGIPROGNO ---
Progress Note: A&P Assessment and Plan (1) Alcoholic hepatitis: Code(s): K70.10 - Alcoholic hepatitis without ascites Status: Acute Assessment and Plan: Patient with marked elevation of LFTs. This appears most consistent with alcoholic hepatitis. He has concomitant thrombocytopenia. Plan is for strict alcohol avoidance. He would likely benefit from a support group in alcohol rehab if at all possible. Follow-up LFTs and CBC as an outpatient is encouraged by primary care service. Suggest repeating these initially 2 weeks after discharge and then as needed subsequently. Patient is aware that long-term alcohol use will continue to deteriorate his liver and progress toward cirrhosis and risk of additional decompensation. Subjective Date/time seen: 10/12/21 10:15 Patient alert comfortable this morning. Anxious to go home. Denies abdominal pain. States his bowel habits have been normal and he is tolerating diet. Review of Systems Review of Systems: All systems reviewed & are unremarkable except as noted in HPI and below Exam Narrative: Physical exam reveals patient be alert and anicteric. Vital signs are stable. Lungs are clear. Heart without murmur. Abdomen bowel sounds present soft nontender no obvious organomegaly. Objective Data Vital Signs Vital Signs: Vital Signs - 24 hr 10/11/21 11:48 10/11/21 12:00 10/11/21 13:41 Temperature 97.8 F Pulse Rate 94 90 92 Respiratory Rate 20 Blood Pressure 130/84 Pulse Oximetry 97 10/11/21 16:00 10/11/21 17:44 10/11/21 20:00 Temperature 97.8 F 97.8 F Pulse Rate 105 H 117 H 91 Respiratory Rate 20 16 Blood Pressure 132/103 H 123/78 Pulse Oximetry 99 99 10/11/21 22:00 10/12/21 00:00 10/12/21 02:00 Temperature 97.7 F Pulse Rate 91 86 81 Respiratory Rate 20 Blood Pressure 169/92 H Pulse Oximetry 100 10/12/21 04:00 10/12/21 04:39 10/12/21 04:40 Temperature 97.6 F Pulse Rate 68 Respiratory Rate 20 Blood Pressure 120/72 126/69 120/72 Pulse Oximetry 100 10/12/21 06:00 10/12/21 08:00 10/12/21 08:27 Temperature 97.5 F L Pulse Rate 107 H 86 96 Respiratory Rate 13 Blood Pressure 139/85 117/74 Pulse Oximetry 98 Intake/Output Intake/Output: Intake & Output 10/09/21 10/10/21 10/11/21 10/12/21 23:59 23:59 23:59 23:59 Intake Total 1100 3050 3770 2360 Output Total 2200 1750 1450 Balance 8095 134 7244 910 Meds/Results Medications: Active Medications Generic Name Dose Route Start Last Admin Trade Name Freq PRN Reason Stop Dose Admin Calcium Carbonate 500 mg 10/12/21 08:00 10/12/21 09:08 Calcium Carbonate (Oscal) 500 Mg Tablet PO 500 mg DAILY@0800 CRIS Administration Chlordiazepoxide HCl 25 mg 10/10/21 12:00 10/12/21 05:21 Chlordiazepoxide (*Crx) 25 Mg Capsule PO 25 mg Q6HR CRIS Administration Folic Acid 1 mg 10/10/21 09:00 10/12/21 09:08 Folic Acid 1 Mg Tablet PO 1 mg DAILY CRIS Administration Gabapentin 100 mg 10/11/21 18:48 10/12/21 09:09 Gabapentin 100 Mg Capsule PO 100 mg TID CRIS Administration Hydrochlorothiazide 12.5 mg 10/11/21 09:00 10/12/21 09:08 Hydrochlorothiazide 12.5 Mg Capsule PO 12.5 mg DAILY CRIS Administration Lisinopril 20 mg 10/11/21 09:00 10/12/21 09:08 Lisinopril 20 Mg Tablet PO 20 mg DAILY CRIS Administration Lorazepam 1 mg 10/10/21 00:26 10/11/21 03:04 Lorazepam Inj (*Crx) 2 Mg/Ml Vial IV PUSH 1 mg Q3H PRN Administration EtOH withdrawal and CIWA > 8 Nicotine 1 patch 10/11/21 09:00 10/12/21 09:09 Nicotine (*Pbkc) 14 Mg Patch TRANSDERM 1 patch QAM CRIS Administration Thiamine HCl 100 mg 10/10/21 09:00 10/12/21 09:08 Thiamine Hcl 100 Mg Tablet PO 100 mg QAM CRIS Administration Trazodone HCl 50 mg 10/10/21 00:10 10/11/21 20:52 Trazodone Hcl 50 Mg Tablet PO 50 mg HS CRIS Administration Radiology Results: ITS Impressions Abdomen Ultrasound 10/10/21
[2021-10-12 12:07] LABS: Glucose Point of Care 128 mg/dl (65-105)
--- NOTE | 2021-10-12 12:17 | PM.DS ---
DS: Admitting Diagnosis Discharge Date 10/12/21 1300 Admitting Diagnosis Unresponsive episode DS: Discharge Diagnosis Discharge Diagnosis (1) Alcoholic hepatitis: Code(s): K70.10 - Alcoholic hepatitis without ascites Status: Acute Assessment and Plan: LFTs are elevated due to alcoholic hepatitis, but have continued to improve throughout his stay. Thrombocytopenia, worsening today, and hypoalbuminemia (slightly improved) are also present. INR 1.2. Counseled patient on alcohol cessation and treatment programs, patient acknowledges he desires to cut alcohol intake to improve his liver function. He has previously been seen at [facility] for rehab and is aware of programs and support groups available. GI consulted and assessed pt with alcoholic hepatitis and fatty liver. Discussed plan with patient for alcohol avoidance. GI also discussed ultimate cirrhosis, increased bleeding, poor mental status, and high risk for cancer. GI suggestions included alcohol rehab. 10/10 Abd US showed: Hepatomegaly, increased liver echogenicity which can be seen in steatosis, hepatitis, and fibrosis. Nonspecific gallbladder wall thickening. Simple right renal cyst. Ammonia levels normal. No evidence of fulminant hepatitis at this point. He continues to have transaminitis, improved today: AST 465 (937), ALT 269 (313), Alk Phos, 354 (384). - Follow up LFTs and CBC after discharge with primary care. - Care coordination provided resources regarding support groups. - Patient acknowledged understanding. (2) Unresponsive episode: Code(s): R41.89 - Other symptoms and signs involving cognitive functions and awareness Status: Acute Assessment and Plan: Patient was reportedly found by his daughter unresponsive in his vehicle on 10/09. Patient has previously had with alcohol withdrawal seizures, as recently as May 2021. He does report alcohol intake the morning of 10/09, but he felt ill nonetheless. He has been stable, alert, and oriented since arrival. Telemetry reviewed, no abnormal findings today. No acute mental status changes. No abnormal heart rhythms on cardiac telemetry during his stay, nor on EKG. -CIWA and seizure precautions in place during his stay. -See additional plan under alcoholism. (3) Acute kidney injury: Code(s): N17.9 - Acute kidney failure, unspecified Status: Acute Assessment and Plan: Patient is back to baseline, and this MARICHUY has resolved. Patient continues to be hydrated with IV fluids. Patient was rehydrated with IV fluids, creatinine has normalized, CK was within normal limits. He appears euvolemic. (4) Hypocalcemia: Code(s): E83.51 - Hypocalcemia Status: Acute Assessment and Plan: Calcium 8.3 today, corrected calcium 9.1. Patient has returned to baseline calcium. Will have him follow up with his primary care. (5) Hypomagnesemia: Code(s): E83.42 - Hypomagnesemia Status: Acute Assessment and Plan: Magnesium improved to still low at 1.5 today. 2g Mag sulfide given. F/U labs with primary care. (6) Alcoholism: Code(s): F10.20 - Alcohol dependence, uncomplicated Status: Acute Assessment and Plan: CIWA scores have remained at 7-4 for past 24 hrs, and pt required only one PRN dosing of ativan at 0300hrs yesterday. - Thiamine and folic acid supplementation continued at discharge. - Patient will be prescribed 25mg Librium TID x 2 days, BID x 2 days, nightly x 2 days, then discontinue. - Advised patient that he can not drink and take the Librium at the same time. Patient acknowledged understanding. - Gave patient return protocols. - Patient has been counseled on alcohol cessation and resources by Care coordination, myself, and Dr. Moser, gastroenterology. Discussion as above. (7) Hypertension: Code(s): I10 - Essential (primary) hypertension
--- NOTE | 2021-10-12 13:14 | PC.NURSE ---
pt tobacco vape pen was secured in safe on 10/10/21 by myself and returned today prior to dc. pt has all belongings upon dc
[2021-10-15 06:56] LABS: Ionized Calcium 4.7 mg/dL (4.8-5.6)
[2021-10-15 17:20] LABS: Ionized Calcium 5.1 mg/dL (4.8-5.6)
== END 2021-10-12 13:31 | disposition home or self-care (01) | DRG 433 ==
LOC: ANHED 20:15 → ANHIMU 20:27
PROVIDERS: Physician Assistant; Student in an Organized Health Care Education/Training Program; Admitting Provider Internal Medicine; Emergency Provider Emergency Medicine; PCP Family Medicine; Visit Provider Internal Medicine
DX: K70.10 Alcoholic hepatitis without ascites (principal); N17.9 Acute kidney failure, unspecified; G40.909 Epilepsy, unspecified, not intractable, without status epilepticus; R41.89 Other symptoms and signs involving cognitive functions and awareness; M19.011 Primary osteoarthritis, right shoulder; I10 Essential (primary) hypertension; E78.5 Hyperlipidemia, unspecified; D69.6 Thrombocytopenia, unspecified; E53.8 Deficiency of other specified B group vitamins; F10.20 Alcohol dependence, uncomplicated; E55.9 Vitamin D deficiency, unspecified; E83.51 Hypocalcemia; E87.6 Hypokalemia; E83.42 Hypomagnesemia; F17.210 Nicotine dependence, cigarettes, uncomplicated
CPT/HCPCS: 36415; 76705; 80048; 80053; 80074; 80307; 81003; 82140; 82330; 82550; 82948; 83605; 83735; 84100; 84443; 84484; 85025; 85027; 85055; 85610; 85730; 93005; 96360; 96361; 96365; 96375; 96376; 99285; A9270; G0378; J2060; J3411; J3475; J7030

== ENCOUNTER 2021-10-30 07:21 | Outpatient (CLI) | payer OTHER, SELFPAY ==
[2021-10-30 07:53] LABS: Alanine Aminotransferase 23 U/L (4-50); Albumin Level 4.1 g/dL (3.5-5.1); Alkaline Phosphatase 95 U/L (38-126); Anion Gap 5 mmol/L (8-16); Aspartate Amino Transferase 36 U/L (17-59); Bilirubin,Total 0.5 mg/dL (0.2-1.3); Blood Urea Nitrogen 12 mg/dL (9-20); Calcium 9.7 mg/dL (8.4-10.2); Carbon Dioxide 26 mmol/L (22-30); Chloride 104 mmol/L (98-107); Cholesterol 186 mg/dL (0-200); Creatine Kinase 96 U/L (55-170); Estimated Glomerular Filt Rate > 60; Glucose 103 mg/dL (65-110); HDL Direct 45 mg/dL; Magnesium 1.7 mg/dL (1.6-2.3); Potassium 4.9 mmol/L (3.4-5.0); Sodium 135 mmol/L (137-145); Triglycerides 158 mg/dL (<150)
[2021-10-30 07:59] LABS: Hematocrit 34.8 % (42.0-52.0); Hemoglobin 11.2 g/dL (14.0-18.0); Mean Corpuscular HGB Conc 32.2 g/dl (32-36); Mean Corpuscular Hemoglobin 31.7 pg (26-34); Mean Corpuscular Volume 98.6 fl (80-100); Mean Platelet Volume 11.3 fl (7.4-10.4); Platelet Count Result 425 k/mm3 (150-375); Red Blood Count 3.53 M/mm3 (4.6-6.20); Red Cell Distribution Width 16.4 % (11.5-14.5)
[2021-10-30 08:04] LABS: LDL Cholesterol Direct 79 mg/dL
[2021-10-30 09:10] LABS: Hepatitis B Surface Antigen Negative (Negative)
[2021-10-30 09:16] LABS: HAV RESULT Negative (Negative); Hepatitis B Core IgM Result Negative (Negative)
[2021-10-30 09:28] LABS: Hepatitis C Virus Antibody Negative (Negative)
[2021-11-01 06:10] LABS: GGT 327 U/L (3-95)
== END 2021-10-30 07:22 | disposition home or self-care (01) ==
LOC: ANHLAB 07:23
PROVIDERS: PCP Family Medicine; Visit Provider Nurse Practitioner Family
DX: K70.10 Alcoholic hepatitis without ascites (principal); F10.20 Alcohol dependence, uncomplicated; E87.5 Hyperkalemia; E83.42 Hypomagnesemia
CPT/HCPCS: 36415; 80048; 80061; 80074; 80076; 82550; 82977; 83735; 85027

== ENCOUNTER 2022-03-29 09:44 | Emergency (ER) | payer OTHER, SELFPAY ==
--- NOTE | ~2022-03-29 | XR_ITS ---
XR lumbar spine 2-3V 03/29/2022 10:53 Indication: Low back pain Procedure: Low back pain Comparison: No prior studies for comparison. Findings: There is disc narrowing at all lumbar levels. No fracture, subluxation or dislocation. Ther e is dextroscoliosis. Sacral foramen are symmetric. There is atherosclerosis of the aorta. There is w edge-shaped deformity of T12, likely chronic. There is mild lower lumbar facet hypertrophy. Pedicles intact. Sacral foramen are symmetric. Impression: 1: Moderate lumbar spondylosis with dextrocurvature of the lumbar spine. Reviewed, dictated and finalized at location B. Impression: 1: Moderate lumbar spondylosis with dextrocurvature of the lumbar spine.
[2022-03-29 09:55] VITALS: BP 148/84; PULSE 102; RESP 18; TEMP 36.5; O2SAT 100
--- NOTE | 2022-03-29 10:23 | ED.BACK ---
HPI - Back Pain/Injury General Chief Complaint: Back Pain/Injury Stated Complaint: left leg/back pain x 3 weeks Time Seen by Provider: 03/29/22 10:13 Source: patient Mode of arrival: ambulatory Limitations: no limitations History of Present Illness HPI Narrative: This is a 56-year-old male that presents to the emergency department for left-sided low back pain. Ongoing over the last couple of weeks. No recent injury or trauma. Reports the pain radiates into the left leg. It is worse with movement and ambulation. Relieved with rest. Reports he took a Flexeril prior to arrival with relief. Denies decreased range of motion or numbness. Related Data Allergies Allergy/AdvReac Type Severity Reaction Status Date / Time No Known Allergies Allergy Mild Verified 03/29/22 09:58 Review of Systems Review of Systems: CONSTITUTIONAL: Denies fever SKIN: Denies rash MUSCULOSKELETAL: Reports back pain, joint pain, and myalgia. NEUROLOGIC: Denies numbness, or weakness. All systems reviewed & are unremarkable except as noted in HPI and below PMFSH Past Medical History Medical History Alcoholism B12 deficiency Hyperlipidemia Hypertension Seizure disorder Tobacco abuse Vitamin D deficiency Surgical History Surgical History History of bilateral carpal tunnel release History of repair of right rotator cuff Family History Family History Mother Family history of diabetes mellitus in first degree relative Cancer Cerebrovascular accident Father Spleen cancer Asthma Sibling No problems noted. Social History Social History Social History: Surrogate decision maker: Sangeeta Lewis, mother. Code status: Full code. Smoking packs per day: 1 Smoking cigarettes per day: 20.0 Years smoked: 40 Smoking pack-years: 40.00 Smoking status: Current every day smoker Tobacco type: cigarettes Alcohol intake: former Alcohol use details: Up to 2 5th of whiskey a day. States he is sober and takes his Librium and Naltrexone every day. Substance use: former Substance use type: marijuana Other substance usage details: street pain meds Spiritual care concerns: No Exam Narrative: GENERAL: Well-appearing, well-nourished, resting in bed comfortably HEAD: Normocephalic, atraumatic. EYES: EOMI. CHEST: No respiratory distress. HEART: Regular rate BACK: No midline spinal tenderness EXTREMITIES: Normal range of motion. No edema, erythema or warmth of the left leg. Normal DP and PT pulses. Normal sensation. Strength equal in bilateral lower extremities (5/5) SKIN: Warm, dry, no rash. NEURO: No focal deficits. Alert and oriented x3. PSYCH: Normal mood and affect Course Vital Signs Vital signs: Vital Signs Temperature 97.7 F 03/29/22 09:55 Pulse Rate 102 H 03/29/22 09:55 Respiratory Rate 18 03/29/22 09:55 Blood Pressure 148/84 H 03/29/22 09:55 Pulse Oximetry 100 03/29/22 09:55 Oxygen Delivery Room Air 03/29/22 09:55 Temperature 97.7 F 03/29/22 09:55 Pulse Rate 102 H 03/29/22 09:55 Respiratory Rate 18 03/29/22 09:55 Blood Pressure 148/84 H 03/29/22 09:55 Pulse Oximetry 100 03/29/22 09:55 Oxygen Delivery Room Air 03/29/22 09:55 MDM - Back Pain/Injury MDM Narrative Medical decision making narrative: Patient presents to the emergency department for left-sided low back pain radiating down the leg. He is afebrile and nontoxic-appearing. He is neurovascularly intact. Lumbar spine x-ray shows moderate lumbar spondylosis. Patient was updated on case findings. He had taken a Flexeril prior to arrival and his pain was under control. Instructed to continue Flexeril as needed and [id number] pain medications as needed. Will be given neurosurgery
[2022-03-29 11:21] VITALS: BP 150/74; PULSE 87; RESP 18; O2SAT 99
== END 2022-03-29 11:22 | disposition home or self-care (01) ==
PROVIDERS: Emergency Provider Emergency Medicine; PCP Family Medicine
DX: M47.816 Spondylosis without myelopathy or radiculopathy, lumbar region (principal); I10 Essential (primary) hypertension; E78.5 Hyperlipidemia, unspecified; E55.9 Vitamin D deficiency, unspecified; G40.909 Epilepsy, unspecified, not intractable, without status epilepticus; E53.8 Deficiency of other specified B group vitamins; F10.21 Alcohol dependence, in remission; F17.210 Nicotine dependence, cigarettes, uncomplicated
CPT/HCPCS: 72100; 99283

== ENCOUNTER 2022-06-06 13:51 | Inpatient (IN) | payer OTHER, SELFPAY ==
[2022-06-06] VITALS (28 sets, daily range): BP systolic 110–157; BP diastolic 73–93; PULSE 97–136; RESP 16–23; TEMP 36.8; O2SAT 95–100
--- NOTE | ~2022-06-06 | CT_ITS ---
EXAMINATION: CT facial & cervical spine wo DATE: 06/06/2022 14:51 INDICATION: Patient fell onto face last night following seizure TECHNIQUE: Computed tomography (CT) of the facial bones and maxillofacial region was performed withou t intravenous contrast. Automated exposure control and iterative reconstruction technique were employ ed. Exam dose: 493.53 mGy-cm total exam DLP. COMPARISON: 10/17/2019 CT cervical spine FINDINGS: There is a subtle nondisplaced linear fracture of the left nasal plate. The anterior maxillary spine is intact. The orbital rims and dyer and frontozygomatic sutures as well as zygomatic arches and max illary bones are intact, without fracture. Approximately 1.5 cm polyp or mucous retention cyst at the posterior floor of the right maxillary sin us. Occasional scattered areas of slight mucoperiosteal thickening of the paranasal sinuses. No fluid levels are noted. The mastoid air cells are normally developed and aerated. Middle and anterior apparatus appear normal bilaterally. Normal alignment at the temporomandibular joints. No mandibular fracture. C1 and C2 are normally aligned and the odontoid process is intact. There is straightening of the cerv ical spinal which may be due to positioning or muscle spasm. No fracture or dislocation or locked facet or prevertebral soft tissue swelling is detected. There is severe degenerative disc disease at C5-6 and C6-7. There is degenerative change at some of t he apophyseal joints, especially on the left at C2-3 There is prominent uncovertebral joint spurring at C5-6 and C6-7. IMPRESSION: Subtle nondisplaced linear fracture of left nasal plate No other facial fracture Straightening of cervical spine which may be due to muscle spasm No fracture or dislocation, locked facet Cervical spondylosis, most severe at C5-6 and C6-7 Reviewed, dictated and finalized at [facility]. Reviewed, dictated and finalized at [facility]. 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
--- NOTE | ~2022-06-06 | CT_ITS ---
EXAMINATION: CT brain wo con DATE: 06/06/2022 14:50 INDICATION: Patient fell onto face last night following a seizure. TECHNIQUE: Computed tomography (CT) of the head was performed without intravenous contrast. The mA wa s adjusted according to patient size. Iterative reconstruction technique was employed. Exam dose: 60 5.33 mGy-cm total exam DLP. COMPARISON: October 17, 2019 CT brain FINDINGS: Prominent left vertebral artery calcification. Mild right carotid siphon internal carotid a rtery calcification. No intracranial mass lesion or hemorrhage or cerebrovascular accident is detected. No midline shift o r mass effect. There is moderate cerebral and cerebellar atrophy for patient age. No subdural or epidural hematoma. No fracture or bone destruction of the cranial vault. The mastoid air cells and included paranasal si nuses are normally developed and aerated. IMPRESSION: Cerebral atherosclerosis Greater than expected volume loss of the cerebrum and cerebellum for age No acute intracranial finding or skull fracture Reviewed, dictated and finalized at [facility]. Reviewed, dictated and finalized at [facility]. 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
--- NOTE | 2022-06-06 14:10 | ECG_ITS ---
Measurements Intervals Stella Rate: 105 P: 61 AR: 166 QRS: 73 QRSD: 94 T: 92 QT: 375 QTc: 498 Interpretive Statements SINUS TACHYCARDIA LEFT VENTRICULAR HYPERTROPHY AND ST-T CHANGE [VOLTAGE CRITERIA PLUS ST/T ABNORMALITY] COMPARED TO ECG 10/10/2021 10:06:51 NO SIGNIFICANT CHANGE Electronically Signed On 06-07-2022 7:40:14 SEARCH ENGINE OPTIMIZATION STRATEGIST by Gideon Vogel M.D.
--- NOTE | 2022-06-06 14:10 | ED.ALCOHOL ---
HPI - Alcohol General Chief Complaint: Alcohol Stated Complaint: alcohol withdrawl Time Seen by Provider: 06/06/22 14:07 Source: patient and RN notes reviewed Mode of arrival: ambulatory History of Present Illness HPI narrative: 56 years old white male presents with multiple falls over the last 3 days, according to his that patient been falling forward hitting his face on the ground because of alcohol. Last alcohol intake was this morning. Patient is telling me that he would like to quit drinking and currently shaky and jittery and restless. His reports that possible seizure at home and usually he get it when he tried to quit drinking. He denies any fever, chills ,nausea ,vomiting Related Data Allergies Allergy/AdvReac Type Severity Reaction Status Date / Time No Known Allergies Allergy Mild Verified 06/06/22 13:52 Review of Systems Review of Systems: All systems reviewed & are unremarkable except as noted in HPI and below PMFSH Past Medical History Medical History Alcoholism B12 deficiency Hyperlipidemia Hypertension Seizure disorder Tobacco abuse Vitamin D deficiency Surgical History Surgical History History of bilateral carpal tunnel release History of repair of right rotator cuff Family History Family History Mother Family history of diabetes mellitus in first degree relative Cancer Cerebrovascular accident Father Spleen cancer Asthma Sibling No problems noted. Social History Social History Social History: Surrogate decision maker: Sangeeta Lewis, mother. Code status: Full code. Smoking packs per day: 1 Smoking cigarettes per day: 20.0 Years smoked: 40 Smoking pack-years: 40.00 Smoking status: Current every day smoker Tobacco type: cigarettes Alcohol intake: former Alcohol use details: Up to 2 5th of whiskey a day. States he is sober and takes his Librium and Naltrexone every day. Substance use: former Substance use type: marijuana Other substance usage details: street pain meds Spiritual care concerns: No Exam Narrative: General appearance: Well-developed, well-nourished Skin: Normal color, Head: Normocephalic, nontraumatic Eyes: Clear conjunctiva ENT: Oropharynx normal, ears normal, nasal abrasion, contusion Neck: Supple, nontender Chest and respiratory: Airway patent, no respiratory distress, no accessory muscle use Heart: Regular rate/rhythm Abdomen: Soft, nontender, no organomegaly, quiet bowel sounds Vascular: Normal peripheral pulses, normal capillary refill. Musculoskeletal: Normal range of motion, nontender back Neurologic: Alert and oriented ?3, SHAKE PACKER is normal as tested, no gross motor deficit Course Course Emergency Course: Work-up today showed elevated liver enzymes secondary to alcoholism, also elevated creatinine level indicating dehydration. Patient will be admitted for further evaluation. Reevaluation(s) Reevaluation #1: Patient feeling much better, after 2 mg of Ativan IV, less jittery and less restless Date: 06/06/22 Time: 17:11 Vital Signs Vital signs: Vital Signs Pulse Rate 110 H 06/06/22 13:57 Respiratory Rate 21 H 06/06/22 13:57 Blood Pressure 112/83 06/06/22 13:57 Pulse Oximetry 99 06/06/22 13:57 Pulse Rate 120 H 06/06/22 18:02 Respiratory Rate 18 06/06/22 18:02 Blood Pressure 129/73 06/06/22 18:02 Pulse Oximetry 99 06/06/22 18:02 MDM - Alcohol Differential Diagnosis Differential diagnosis: Likely
[2022-06-06 14:31] LABS: Ethanol 88 mg/dL (<10)
[2022-06-06 14:33] LABS: Alanine Aminotransferase 189 U/L (6-50); Albumin Level 3.9 g/dL (3.5-5.1); Alkaline Phosphatase 321 U/L (38-126); Anion Gap 10 mmol/L (8-16); Aspartate Amino Transferase 612 U/L (17-59); Bilirubin,Total 0.7 mg/dL (0.2-1.3); Blood Urea Nitrogen 13 mg/dL (9-20); Calcium 7.8 mg/dL (8.4-10.2); Carbon Dioxide 26 mmol/L (22-30); Chloride 95 mmol/L (98-107); Estimated CRCL calculation 52 ml/min; Estimated Glomerular Filt Rate 49; Glucose 108 mg/dL (65-110); Potassium 3.2 mmol/L (3.4-5.0); Sodium 131 mmol/L (137-145)
[2022-06-06] MEDS: THIAMINE HCL INJ 100 MG, FOLIC ACID INJ 1 MG, MULTIVITAMINS-12 INJ VIAL 1 5 ML, MULTIVI... IV CONT (14:55)
[2022-06-06] MEDS: LORazepam INJ (*CRX) 2 MG/ML VIAL IV PUSH (14:56)
[2022-06-06 15:22] LABS: Hematocrit 35.6 % (42.0-52.0); Hemoglobin 12.4 g/dL (14.0-18.0); Mean Corpuscular HGB Conc 34.8 g/dl (32-36); Mean Corpuscular Volume 103.5 fl (80-100); Mean Platelet Volume 11.2 fl (7.4-10.4); Platelet Count Result 172 k/mm3 (150-375); Red Blood Count 3.44 M/mm3 (4.6-6.20); Red Cell Distribution Width 15.3 % (11.5-14.5); White Blood Count 7.3 K/mm3 (4.5-10.0)
[2022-06-06 17:44] LABS: Magnesium 1.5 mg/dL (1.6-2.3)
[2022-06-06] MEDS: SODIUM CHLORIDE 0.9% IV 1,000 ML 150 ML IV CONT ×2 (18:02→23:27)
[2022-06-06 18:06] LABS: Influenza A QL RT-PCR Negative (Negative); Influenza B QL RT-PCR Negative (Negative); SARS-CoV-2 RNA PCR Negative
--- NOTE | 2022-06-06 20:31 | PM.IMHP ---
H&P: HPI History of Present Illness Date/Time: 06/06/22 20:31 Chief Complaint: Withdrawing from alcohol Narrative: 56-year-old male with past medical history of essential hypertension, hyperlipidemia and chronic alcohol abuse who presented to the ER from home due to alcohol withdrawal. The patient has been drinking heavily for many years. He drinks about 12 shots of bourbon daily. He started trying to cut back on his alcohol use about a week ago and since that time has been having intermittent episodes of sweating, tremors anxiety and anxiety. On the night of the the patient evidently had a witnessed seizure. He reported that he was shaking so bad this morning that he broke down and drink 4 shots about 06:00. He has had some intermittent nausea. He was feeling extremely anxious in the ER and having sweats. His symptoms improved after IV Ativan. He has not been having any vomiting. He has been having intermittent diarrhea for the last week. He is having up to 8 loose stools a day. He is having occasional black stools but nothing in the last week or so. He denies ever having had any EGD or colonoscopy. The patient has a laceration noted to his lower lip and to the bridge of his nose. He does not know if he had any bowel or bladder incontinence when he had his seizure. He denies having any auditory or visual hallucinations. His CIWA score in the ER was 10. He has chronic hearing loss. He reports that he has been off work for about 4 5 weeks due to low back pain that radiates down to his left anterior thigh. 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 Review of Systems Review of Systems: 12 systems were reviewed with pertinent positives and negatives per HPI. Except as documented in the HPI, all other systems were reviewed and are negative. [facility] Past Medical History Medical History (Updated 06/07/22 @ 02:07 by Maria E Junior DO) Alcohol withdrawal seizure Alcoholism B12 deficiency Hearing loss Hyperlipidemia Hypertension Obstructive sleep apnea Tobacco abuse Vitamin D deficiency Surgical History Surgical History History of bilateral carpal tunnel release History of repair of right rotator cuff Family History Family History Mother Family history of diabetes mellitus in first degree relative Cerebrovascular accident Father Spleen cancer Asthma Cancer Sibling Acute myocardial infarction, Onset Age: 46 Social History Social History (Updated 06/07/22 @ 01:57 by Maria E Junior DO) Social History: Surrogate decision maker: Sangeeta Lewis, mother. Code status: Full code. Smoking packs per day: 1.5 Smoking cigarettes per day: 30.0 Years smoked: 40 Smoking pack-years: 60.00 Smoking status: Current every day smoker Tobacco type: cigarettes Alcohol intake: current Drinks per week: 112 Alcohol use details: Up to 2 fifths of whiskey a day. Substance use: former Substance use type: marijuana Other substance usage details: street pain meds Lack of Transportation: No Lack of Food: Never True Current Housing: I Have Housing Concerned About Future Housing: No Difficulty Paying Gas/Electric Bills: YES Difficulty Paying for Meds: No Currently Unemployed: No Education: High School Diploma/GED Difficulty w/ Childcare or Family Care: No Additional living arrangements comments: He lives with his ex-. 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 Spiritual care concerns: No Meds Home Medications and Allergies Home Medications Medication Instructions Recorded Confirmed Type lisinopril 20 1 tablet PO DAILY #30 tabs 01/31/22 03/26/22 Rx mg-hydrochlorothiazide 12.5 mg tablet cyclobenzaprine 10 mg tablet 10 mg PO TID PRN muscle spasm #30 05/07/22 Rx tabs meloxicam 15
[2022-06-06] MEDS: POTASSIUM CHLORIDE 20 MEQ TABLET 40 MEQ PO (22:48)
[2022-06-06] MEDS: MAGNESIUM SULF 4 GM/WATER100ML 4 GM/100 ML BAG IVPB (22:48)
[2022-06-06] MEDS: THIAMINE HCL 200 MG/2 ML VIAL 500 MG IV PUSH (22:52)
[2022-06-06] MEDS: SODIUM CHLORIDE 0.9% IV 1,000 ML 999 ML IV CONT ×2 (22:54→23:02)
[2022-06-06] MEDS: chlordiazePOXIDE (*CRX) 25 MG CAPSULE 50 MG PO (23:31)
[2022-06-07] VITALS (19 sets, daily range): BP systolic 143–175; BP diastolic 95–105; PULSE 84–140; RESP 16–22; TEMP 36.4–36.6; O2SAT 97–100; BMI 22.1
[2022-06-07 00:36] LABS: Glucose Point of Care 163 mg/dl (65-105)
--- NOTE | 2022-06-07 00:44 | ADMGEN ---
This patient, Gerald Lewis, was admitted to IMU Room 201-01 06/07/22 at 1215. Patient/family oriented to hospital policies and general routines including ID bracelet, bed and alarms, visiting hours, pain management, procedures, bathroom and other care routines, personal items, smoking policy, room service/diet, and visiting hours. Information on how to activate the Rapid Response Team has been discussed. Patient/Family are encouraged to report perceived risks to care and to ask questions if they do not understand what they are told or what they should do.
[2022-06-07] MEDS: CYCLOBENZAPRINE HCL 10 MG TABLET PO ×2 (02:55→15:43)
[2022-06-07] MEDS: LORazepam INJ (*CRX) 2 MG/ML VIAL 1 MG IV PUSH ×4 (02:55→22:14)
[2022-06-07] MEDS: SODIUM CHLORIDE 0.9% IV 1,000 ML 150 ML IV CONT (03:33)
[2022-06-07 05:11] LABS: Hematocrit 29.9 % (42.0-52.0); Hemoglobin 10.2 g/dL (14.0-18.0); Mean Corpuscular HGB Conc 34.1 g/dl (32-36); Mean Corpuscular Hemoglobin 35.2 pg (26-34); Mean Corpuscular Volume 103.1 fl (80-100); Platelet Count Result 140 k/mm3 (150-375); Red Cell Distribution Width 15.3 % (11.5-14.5); White Blood Count 6.7 K/mm3 (4.5-10.0)
[2022-06-07 05:22] LABS: Alanine Aminotransferase 146 U/L (6-50); Albumin Level 3.1 g/dL (3.5-5.1); Alkaline Phosphatase 310 U/L (38-126); Anion Gap 4 mmol/L (8-16); Aspartate Amino Transferase 413 U/L (17-59); Bilirubin,Total 0.6 mg/dL (0.2-1.3); Blood Urea Nitrogen 11 mg/dL (9-20); Calcium 7.2 mg/dL (8.4-10.2); Carbon Dioxide 26 mmol/L (22-30); Chloride 105 mmol/L (98-107); Estimated CRCL calculation 84 ml/min; Estimated Glomerular Filt Rate > 60; Glucose 113 mg/dL (65-110); Magnesium 2.4 mg/dL (1.6-2.3); Phosphorus 2.6 mg/dL (2.5-4.5); Potassium 3.3 mmol/L (3.4-5.0); Sodium 135 mmol/L (137-145)
[2022-06-07] MEDS: chlordiazePOXIDE (*CRX) 25 MG CAPSULE 50 MG PO ×3 (05:45→18:06)
[2022-06-07 06:27] LABS: Folic Acid 15.4 ng/mL (2.76->20)
[2022-06-07] MEDS: ENOXAPARIN 40 MG/0.4 ML SYRINGE SUB-Q (10:14)
[2022-06-07] MEDS: lisinopriL 20 MG TABLET PO (10:15)
[2022-06-07] MEDS: MELOXICAM 7.5 MG TABLET 15 MG PO (10:15)
[2022-06-07] MEDS: hydroCHLOROthiazide 12.5 MG CAPSULE PO (10:15)
[2022-06-07] MEDS: THERAPEUTIC MULTIVITAMINS/MINERALS TAB (*BKC) 1 TABLET PO (10:15)
[2022-06-07] MEDS: THIAMINE HCL 100 MG TABLET 500 MG PO (10:16)
[2022-06-07] MEDS: LORazepam INJ (*CRX) 2 MG/ML VIAL IV PUSH ×2 (11:36→17:46)
[2022-06-07] MEDS: SODIUM CHLORIDE 0.9% IV 1,000 ML 100 ML IV CONT (11:37)
[2022-06-07] MEDS: POTASSIUM CHLORIDE 20 MEQ TABLET 40 MEQ PO (12:38)
[2022-06-07 14:23] LABS: Glucose Point of Care 121 mg/dl (65-105)
--- NOTE | 2022-06-07 16:39 | PM.IMPN ---
Progress Note: A&P Assessment and Plan (1) Alcohol withdrawal seizure: Qualifiers: Complication of substance-induced condition: uncomplicated Qualified Code(s): F10.930 - Alcohol use, unspecified with withdrawal, uncomplicated; R56.9 - Unspecified convulsions Code(s): F10.939 - Alcohol use, unspecified with withdrawal, unspecified; R56.9 - Unspecified convulsions Status: Acute (2) Alcohol withdrawal: Qualifiers: Complication of substance-induced condition: uncomplicated Qualified Code(s): F10.930 - Alcohol use, unspecified with withdrawal, uncomplicated Code(s): F10.939 - Alcohol use, unspecified with withdrawal, unspecified Status: Acute (3) MARICHUY (acute kidney injury): Code(s): N17.9 - Acute kidney failure, unspecified Status: Acute (4) Acute alcoholic hepatitis: Code(s): K70.10 - Alcoholic hepatitis without ascites Status: Acute (5) Closed fracture nasal bone: Qualifiers: Encounter type: initial encounter Qualified Code(s): S02.2XXA - Fracture of nasal bones, initial encounter for closed fracture Code(s): S02.2XXA - Fracture of nasal bones, initial encounter for closed fracture Status: Acute (6) Hypokalemia: Code(s): E87.6 - Hypokalemia Status: Acute (7) Hyponatremia: Code(s): E87.1 - Hypo-osmolality and hyponatremia Status: Acute (8) Hypomagnesemia: Code(s): E83.42 - Hypomagnesemia Status: Acute (9) Megaloblastic anemia: Code(s): D53.1 - Other megaloblastic anemias, not elsewhere classified Status: Acute Plan Patient's presenting with alcohol withdrawal symptoms with recent seizure. Patient will be admitted to IMU with CIWA scores q.4 hours. Will scheduled Librium 50 mg Q [address] patient on p.r.n. Ativan. Will give the patient thiamine supplementation x1 now and daily. Will give IV fluid hydration given patient does have tachycardia and has acute kidney injury will. Will monitor urine output closely. Will repeat labs in a.m.. The patient had marked sinus tachycardia in the ER. I gave the patient 2 L of fluid bolus and by time he arrived to the IMU is sinus tachycardia had resolved. Will check B12 folic acid and TSH with a.m. labs. Megaloblastic anemia will check B12 folic acid with a.m. labs. The patient does have elevated LFTs due to acute alcoholic hepatitis. Prior ultrasound of the abdomen did demonstrate fibrosis, hepatomegaly and changes consistent with hepatitis in September. Patient does have uncomplicated nasal bone fracture. No intervention needed. The patient has hyponatremia likely due to volume depletion and/or chronic alcohol use. Will repeat BMP in a.m.. Continue IV fluids. 4 g magnesium sulfate rider ordered due to hypokalemia. Repeat level in a.m.. I will continue patient's lisinopril hydrochlorothiazide despite his acute kidney injury and hypo nature E me a as I feel the patient has other reasons for his acute kidney injury and hyponatremia. If renal function or hyponatremia worsen will discontinue the antihypertensives at this time. Currently patient's blood pressures are stable and upper limit of normal. Patient has been admitted as inpatient status and will choir greater than 2 midnight stay for stabilization of his alcohol withdrawal and treatment of his acute alcoholic pancreatitis and acute kidney injury. 06/07/2022 interval history: patient with history of alcohol abuse, patient was started on CIWA protocol and monitored with Librium 50 mg q.8 however patient's symptoms of worsening is more anxious will increase the Librium to 50 mg q.6 as needed, and Ativan 1 mg every 4 hours as needed, there is a sitter in the room, will monitor patient electrolytes and further recommendation to follow Subjective Date/time seen: 06/07/22 16:39 Withdrawing from alcohol HPI-Narrative: 56-year-old male with past medical history of essentia
[2022-06-07 17:03] LABS: Glucose Point of Care 140 mg/dl (65-105)
[2022-06-07 17:54] LABS: Glucose Point of Care 172 mg/dl (65-105)
[2022-06-07 22:18] LABS: Glucose Point of Care 129 mg/dl (65-105)
[2022-06-07] MEDS: dexmedeTOMIDine 400 MCG/100 ML 400 MCG/100 ML BAG IV CONT (23:14)
--- NOTE | 2022-06-07 23:35 | PM.EVENT ---
Event Note Event Note Event Note: The patient remains agitated and confused even with this scheduled Librium and p.r.n. Ativan. The patient was transferred to ICU and placed on a Precedex drip due to his confusion and delirium
--- NOTE | 2022-06-07 23:58 | PC.NURSE ---
This patient, Gerald Lewis, was transferred to ICU 10 on 06/07/22 at 2250. Personal belongings sent with patient. Report given to Sue BRICE. Appropriate documentation sent with patient.
[2022-06-08] VITALS (22 sets, daily range): BP systolic 114–168; BP diastolic 74–116; PULSE 69–119; RESP 14–35; TEMP 36.6–37; O2SAT 92–100
[2022-06-08] MEDS: LORazepam INJ (*CRX) 2 MG/ML VIAL (00:36)
[2022-06-08] MEDS: LORazepam INJ (*CRX) 2 MG/ML VIAL IV PUSH ×3 (00:37→23:41)
[2022-06-08] MEDS: HALOPERIDOL LACTATE 5 MG/ML VIAL 10 MG IM (00:37)
[2022-06-08] MEDS: HALOPERIDOL LACTATE 5 MG/ML VIAL 10 MG (00:37)
[2022-06-08] MEDS: NICOTINE (*PBKC) 21 MG PATCH 1 PATCH TRANSDERM (02:35)
[2022-06-08] MEDS: METOPROLOL TARTRATE INJ 5 MG/5 ML VIAL ×2 (04:50→05:11)
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
[2022-06-08 05:56] LABS: Hemoglobin 12.4 g/dL (14.0-18.0); Mean Corpuscular HGB Conc 34.4 g/dl (32-36); Mean Corpuscular Hemoglobin 35.2 pg (26-34); Mean Corpuscular Volume 102.3 fl (80-100); Mean Platelet Volume 10.7 fl (7.4-10.4); Platelet Count Result 170 k/mm3 (150-375); Red Blood Count 3.52 M/mm3 (4.6-6.20); White Blood Count 9.5 K/mm3 (4.5-10.0)
[2022-06-08 06:01] LABS: Alanine Aminotransferase 127 U/L (6-50); Albumin Level 3.8 g/dL (3.5-5.1); Alkaline Phosphatase 276 U/L (38-126); Anion Gap 4 mmol/L (8-16); Aspartate Amino Transferase 211 U/L (17-59); Bilirubin,Total 0.8 mg/dL (0.2-1.3); Blood Urea Nitrogen 7 mg/dL (9-20); Calcium 8.5 mg/dL (8.4-10.2); Carbon Dioxide 32 mmol/L (22-30); Chloride 96 mmol/L (98-107); Estimated CRCL calculation 127 ml/min; Estimated Glomerular Filt Rate > 60; Glucose 117 mg/dL (65-110); Magnesium 1.4 mg/dL (1.6-2.3); Potassium 3.3 mmol/L (3.4-5.0); Sodium 132 mmol/L (137-145)
[2022-06-08] MEDS: THIAMINE HCL 100 MG TABLET 500 MG PO (09:34)
[2022-06-08] MEDS: hydroCHLOROthiazide 12.5 MG CAPSULE PO (09:35)
[2022-06-08] MEDS: THERAPEUTIC MULTIVITAMINS/MINERALS TAB (*BKC) 1 TABLET PO (09:35)
[2022-06-08] MEDS: MELOXICAM 7.5 MG TABLET 15 MG PO (09:35)
[2022-06-08] MEDS: ENOXAPARIN 40 MG/0.4 ML SYRINGE SUB-Q (09:35)
[2022-06-08] MEDS: lisinopriL 20 MG TABLET PO (09:35)
--- NOTE | 2022-06-08 11:54 | WPDCNINT ---
Assessment and Plan Assessment and plan (1) Alcohol withdrawal: Qualifiers: Complication of substance-induced condition: uncomplicated Qualified Code(s): F10.930 - Alcohol use, unspecified with withdrawal, uncomplicated Code(s): F10.939 - Alcohol use, unspecified with withdrawal, unspecified Status: Acute Assessment and Plan: Patient has been started on Precedex infusion which I will continue. He appears to sedated this time and have requested nurse to wean down the dose Hold benzodiazepines at this time and only use on p.r.n. basis P.r.n. Ativan for seizures Folic acid thiamine IV fluids NPO. Monitor in ICU (2) Alcohol withdrawal seizure: Qualifiers: Complication of substance-induced condition: uncomplicated Qualified Code(s): F10.930 - Alcohol use, unspecified with withdrawal, uncomplicated; R56.9 - Unspecified convulsions Code(s): F10.939 - Alcohol use, unspecified with withdrawal, unspecified; R56.9 - Unspecified convulsions Status: Acute Assessment and Plan: Conservative management for alcohol withdrawal P.r.n. benzodiazepine Seizure precaution (3) Electrolyte abnormality: Code(s): E87.8 - Other disorders of electrolyte and fluid balance, not elsewhere classified Status: Acute Assessment and Plan: Monitor sodium Replace low potassium Replace magnesium Hold HCTZ (4) Megaloblastic anemia: Code(s): D53.1 - Other megaloblastic anemias, not elsewhere classified Status: Acute Assessment and Plan: Chronic. Hemoglobin appears stable Continue folic acid thiamine and multivitamin (5) MARICHUY (acute kidney injury): Code(s): N17.9 - Acute kidney failure, unspecified Status: Acute Assessment and Plan: Improved with IV rehydration Creatinine now normalized Check CK level (6) Acute alcoholic hepatitis: Code(s): K70.10 - Alcoholic hepatitis without ascites Status: Acute Assessment and Plan: LFTs are improving Monitor His viral hepatitis panel has been checked multiple times the past has been negative (7) Closed fracture nasal bone: Qualifiers: Encounter type: initial encounter Qualified Code(s): S02.2XXA - Fracture of nasal bones, initial encounter for closed fracture Code(s): S02.2XXA - Fracture of nasal bones, initial encounter for closed fracture Status: Acute Assessment and Plan: Conservative management (8) Hypertension: Code(s): I10 - Essential (primary) hypertension Status: Acute Assessment and Plan: Continue lisinopril Hold HCTZ Plan DVT prophylaxis -Lovenox Nutrition -NPO Code Status - Full Code Total Critical Care Time - 30 minutes Due to a high probability of clinically significant, life threatening deterioration, the patient required my highest level of preparedness to intervene emergently and I personally spent this critical care time directly and personally managing the patient. This critical care time included obtaining a history; examining the patient; pulse oximetry; ordering and review of studies; arranging urgent treatment with development of a management plan; evaluation of patient's response to treatment; frequent reassessment; and discussions with other providers. It was exclusive of separately billable procedures and treating other patients and teaching time. Please see Assessment and Plan section and the rest of the note for further information on patient assessment and treatment Tobacco Baler Consult Note Consult date: 06/08/22 Reason for consult: Alcohol withdrawal, alcohol withdrawal seizures HPI: Gerald Lewis is a 56 year old male with past medical history of hearing impairment, essential hypertension, hyperlipidemia and chronic alcohol abuse who presented to the ER on 06/06 from home due to alcohol withdrawal.? The patient has been drinking heavily for many years.? He was drinking up to 12 shots of bourbon
[2022-06-08 12:08] LABS: Glucose Point of Care 129 mg/dl (65-105)
[2022-06-08] MEDS: dexmedeTOMIDine 400 MCG/100 ML 400 MCG/100 ML BAG 25.13 MCG IV CONT (12:15)
[2022-06-08] MEDS: KCL 20MEQ/0.9% SOD CHL 1,000 ML 100 ML IV CONT ×2 (12:46→23:02)
[2022-06-08] MEDS: POTASSIUM CHLORIDE INJ 40 MEQ in SODIUM CHLORIDE 0.9% IV 500 ML 130 MEQ IVPB (12:51)
[2022-06-08] MEDS: MAGNESIUM SULF 4 GM/WATER100ML 4 GM/100 ML BAG IVPB (12:52)
[2022-06-08 13:14] LABS: Creatine Kinase 269 U/L (55-170)
--- NOTE | 2022-06-08 16:37 | PM.IMPN ---
Progress Note: A&P Assessment and Plan (1) Alcohol withdrawal seizure: Qualifiers: Complication of substance-induced condition: uncomplicated Qualified Code(s): F10.930 - Alcohol use, unspecified with withdrawal, uncomplicated; R56.9 - Unspecified convulsions Code(s): F10.939 - Alcohol use, unspecified with withdrawal, unspecified; R56.9 - Unspecified convulsions Status: Acute (2) Alcohol withdrawal: Qualifiers: Complication of substance-induced condition: uncomplicated Qualified Code(s): F10.930 - Alcohol use, unspecified with withdrawal, uncomplicated Code(s): F10.939 - Alcohol use, unspecified with withdrawal, unspecified Status: Acute (3) MARICHUY (acute kidney injury): Code(s): N17.9 - Acute kidney failure, unspecified Status: Acute (4) Acute alcoholic hepatitis: Code(s): K70.10 - Alcoholic hepatitis without ascites Status: Acute (5) Closed fracture nasal bone: Qualifiers: Encounter type: initial encounter Qualified Code(s): S02.2XXA - Fracture of nasal bones, initial encounter for closed fracture Code(s): S02.2XXA - Fracture of nasal bones, initial encounter for closed fracture Status: Acute (6) Hypokalemia: Code(s): E87.6 - Hypokalemia Status: Acute (7) Hyponatremia: Code(s): E87.1 - Hypo-osmolality and hyponatremia Status: Acute (8) Hypomagnesemia: Code(s): E83.42 - Hypomagnesemia Status: Acute (9) Megaloblastic anemia: Code(s): D53.1 - Other megaloblastic anemias, not elsewhere classified Status: Acute Plan Patient's presenting with alcohol withdrawal symptoms with recent seizure. Patient will be admitted to IMU with CIWA scores q.4 hours. Will scheduled Librium 50 mg Q [address] patient on p.r.n. Ativan. Will give the patient thiamine supplementation x1 now and daily. Will give IV fluid hydration given patient does have tachycardia and has acute kidney injury will. Will monitor urine output closely. Will repeat labs in a.m.. The patient had marked sinus tachycardia in the ER. I gave the patient 2 L of fluid bolus and by time he arrived to the IMU is sinus tachycardia had resolved. Will check B12 folic acid and TSH with a.m. labs. Megaloblastic anemia will check B12 folic acid with a.m. labs. The patient does have elevated LFTs due to acute alcoholic hepatitis. Prior ultrasound of the abdomen did demonstrate fibrosis, hepatomegaly and changes consistent with hepatitis in September. Patient does have uncomplicated nasal bone fracture. No intervention needed. The patient has hyponatremia likely due to volume depletion and/or chronic alcohol use. Will repeat BMP in a.m.. Continue IV fluids. 4 g magnesium sulfate rider ordered due to hypokalemia. Repeat level in a.m.. I will continue patient's lisinopril hydrochlorothiazide despite his acute kidney injury and hypo nature E me a as I feel the patient has other reasons for his acute kidney injury and hyponatremia. If renal function or hyponatremia worsen will discontinue the antihypertensives at this time. Currently patient's blood pressures are stable and upper limit of normal. Patient has been admitted as inpatient status and will choir greater than 2 midnight stay for stabilization of his alcohol withdrawal and treatment of his acute alcoholic pancreatitis and acute kidney injury. 06/08/2022 interval history: patient with history of alcohol abuse, patient was started on CIWA protocol and monitored with Librium 50 mg q.8 however patient's symptoms of worsening is more anxious will increase the Librium to 50 mg q.6 as needed, and Ativan 1 mg every 4 hours as needed, there is a sitter in the room, however late last night patient became very agitated aggressive was seen by lacquer shader and patient was placed on Precedex currently on a will monitor patient electrolytes and further recommendation to follow, patient
[2022-06-08] MEDS: dexmedeTOMIDine 400 MCG/100 ML 400 MCG/100 ML BAG 10.77 MCG IV CONT (18:33)
[2022-06-08 18:34] LABS: Glucose Point of Care 126 mg/dl (65-105)
[2022-06-09] VITALS (12 sets, daily range): BP systolic 115–142; BP diastolic 73–100; PULSE 73–106; RESP 18–20; TEMP 36.6–36.8; O2SAT 94–100
[2022-06-09 01:45] LABS: Glucose Point of Care 181 mg/dl (65-105)
[2022-06-09] MEDS: LORazepam INJ (*CRX) 2 MG/ML VIAL IV PUSH (02:50)
[2022-06-09] MEDS: dexmedeTOMIDine 400 MCG/100 ML 400 MCG/100 ML BAG 10.77 MCG IV CONT (02:51)
[2022-06-09 03:35] LABS: Hematocrit 34.2 % (42.0-52.0); Hemoglobin 11.4 g/dL (14.0-18.0); Mean Corpuscular HGB Conc 33.3 g/dl (32-36); Mean Corpuscular Hemoglobin 34.4 pg (26-34); Mean Corpuscular Volume 103.3 fl (80-100); Mean Platelet Volume 10.6 fl (7.4-10.4); Platelet Count Result 189 k/mm3 (150-375); Red Blood Count 3.31 M/mm3 (4.6-6.20); Red Cell Distribution Width 15.4 % (11.5-14.5); White Blood Count 10.4 K/mm3 (4.5-10.0)
[2022-06-09 03:50] LABS: Alanine Aminotransferase 91 U/L (6-50); Albumin Level 3.3 g/dL (3.5-5.1); Alkaline Phosphatase 231 U/L (38-126); Anion Gap 4 mmol/L (8-16); Aspartate Amino Transferase 117 U/L (17-59); Bilirubin,Total 0.6 mg/dL (0.2-1.3); Blood Urea Nitrogen 11 mg/dL (9-20); Calcium 8.2 mg/dL (8.4-10.2); Carbon Dioxide 26 mmol/L (22-30); Chloride 101 mmol/L (98-107); Estimated CRCL calculation 127 ml/min; Estimated Glomerular Filt Rate > 60; Glucose 132 mg/dL (65-110); Magnesium 2.1 mg/dL (1.6-2.3); Sodium 131 mmol/L (137-145)
[2022-06-09] MEDS: ENOXAPARIN 40 MG/0.4 ML SYRINGE SUB-Q (08:37)
[2022-06-09] MEDS: lisinopriL 20 MG TABLET PO (08:38)
[2022-06-09] MEDS: THERAPEUTIC MULTIVITAMINS/MINERALS TAB (*BKC) 1 TABLET PO (08:38)
[2022-06-09] MEDS: THIAMINE HCL 100 MG TABLET 500 MG PO (08:38)
[2022-06-09] MEDS: MELOXICAM 7.5 MG TABLET 15 MG PO (08:38)
[2022-06-09] MEDS: NICOTINE (*PBKC) 21 MG PATCH 1 PATCH TRANSDERM (08:38)
[2022-06-09 08:44] LABS: Glucose Point of Care 115 mg/dl (65-105)
[2022-06-09] MEDS: FOLIC ACID 1 MG/0.2 ML INJ IV PUSH (09:04)
--- NOTE | 2022-06-09 10:15 | WPDINTPN ---
Progress Note: A&P Assessment and Plan (1) Alcohol withdrawal: Qualifiers: Complication of substance-induced condition: uncomplicated Qualified Code(s): F10.930 - Alcohol use, unspecified with withdrawal, uncomplicated Code(s): F10.939 - Alcohol use, unspecified with withdrawal, unspecified Status: Acute Assessment and Plan: Clinically improved Patient is Precedex infusion which I will try to wean it off Continue benzodiazepine on p.r.n. basis P.r.n. Ativan for seizures Continue Folic acid thiamine Continue but decrease IV fluids Advance diet (2) Alcohol withdrawal seizure: Qualifiers: Complication of substance-induced condition: uncomplicated Qualified Code(s): F10.930 - Alcohol use, unspecified with withdrawal, uncomplicated; R56.9 - Unspecified convulsions Code(s): F10.939 - Alcohol use, unspecified with withdrawal, unspecified; R56.9 - Unspecified convulsions Status: Acute Assessment and Plan: Conservative management for alcohol withdrawal P.r.n. benzodiazepine Seizure precaution (3) Electrolyte abnormality: Code(s): E87.8 - Other disorders of electrolyte and fluid balance, not elsewhere classified Status: Acute Assessment and Plan: Monitor sodium low potassium and magnesium improved after replacement Resume HCTZ (4) Megaloblastic anemia: Code(s): D53.1 - Other megaloblastic anemias, not elsewhere classified Status: Acute Assessment and Plan: Chronic. Hemoglobin appears stable Continue folic acid thiamine and multivitamin (5) MARICHUY (acute kidney injury): Code(s): N17.9 - Acute kidney failure, unspecified Status: Acute Assessment and Plan: Improved with IV rehydration Creatinine now normalized CK level still slightly elevated hence I will continue low rate fluids for another 24 hours (6) Acute alcoholic hepatitis: Code(s): K70.10 - Alcoholic hepatitis without ascites Status: Acute Assessment and Plan: LFTs are improving Monitor His viral hepatitis panel has been checked multiple times the past has been negative (7) Closed fracture nasal bone: Qualifiers: Encounter type: initial encounter Qualified Code(s): S02.2XXA - Fracture of nasal bones, initial encounter for closed fracture Code(s): S02.2XXA - Fracture of nasal bones, initial encounter for closed fracture Status: Acute Assessment and Plan: Conservative management (8) Hypertension: Code(s): I10 - Essential (primary) hypertension Status: Acute Assessment and Plan: Continue lisinopril Resume HCTZ Plan DVT prophylaxis -Lovenox Nutrition -advance diet Code Status - Full Code PT OT consult Incentive spirometry Transfer out of ICU today Subjective Date/time seen: 06/09/22 Overnight events reviewed. Afebrile Patient awake alert this morning and denies any complaints. He states he is hungry and would like to eat food He does not remember the events from yesterday Patient denies fever, chest pain, shortness of breath, cough, nausea vomiting, abdominal pain,, diarrhea, headache or constipation. Vital signs are stable, he is on room air and urine output is good Patient on low-dose Precedex infusion Review of Systems Review of Systems: All systems reviewed & are unremarkable except as noted in HPI and below (HPI) Exam Narrative: General: Pt is alert awake and in NAD Lungs/Chest: Trachea central Clear BS B/L, No crackles or wheezing. Cardiac: RRR. Normal S1 S2. No murmurs Circulation: Pedal pulses are intact and symmetrical. Abdomen: Normal bowel sounds.. Soft. NT. ND. Extremities: No clubbing, cyanosis or edema. Warm : Berman in place Neurologic: Follows commands. Moves all 4 extremities PERRL Skin: No Rash Objective Data Vital Signs Vital Signs: Vital Signs - 24 hr 06/08/22 11:47 06/08/22 11:48 06/08/22 12:17 Temperature 36.8 C Pulse Ra
[2022-06-09] MEDS: SODIUM CHLORIDE 0.9% IV 1,000 ML 75 ML IV CONT (10:16)
[2022-06-09 13:54] LABS: Glucose Point of Care 105 mg/dl (65-105)
--- NOTE | 2022-06-09 15:50 | PM.IMPN ---
Progress Note: A&P Assessment and Plan (1) Alcohol withdrawal seizure: Qualifiers: Complication of substance-induced condition: uncomplicated Qualified Code(s): F10.930 - Alcohol use, unspecified with withdrawal, uncomplicated; R56.9 - Unspecified convulsions Code(s): F10.939 - Alcohol use, unspecified with withdrawal, unspecified; R56.9 - Unspecified convulsions Status: Acute (2) Alcohol withdrawal: Qualifiers: Complication of substance-induced condition: uncomplicated Qualified Code(s): F10.930 - Alcohol use, unspecified with withdrawal, uncomplicated Code(s): F10.939 - Alcohol use, unspecified with withdrawal, unspecified Status: Acute (3) MAR[place]Y (acute kidney injury): Code(s): N17.9 - Acute kidney failure, unspecified Status: Acute (4) Acute alcoholic hepatitis: Code(s): K70.10 - Alcoholic hepatitis without ascites Status: Acute (5) Closed fracture nasal bone: Qualifiers: Encounter type: initial encounter Qualified Code(s): S02.2XXA - Fracture of nasal bones, initial encounter for closed fracture Code(s): S02.2XXA - Fracture of nasal bones, initial encounter for closed fracture Status: Acute (6) Hypokalemia: Code(s): E87.6 - Hypokalemia Status: Acute (7) Hyponatremia: Code(s): E87.1 - Hypo-osmolality and hyponatremia Status: Acute (8) Hypomagnesemia: Code(s): E83.42 - Hypomagnesemia Status: Acute (9) Megaloblastic anemia: Code(s): D53.1 - Other megaloblastic anemias, not elsewhere classified Status: Acute Plan Patient's presenting with alcohol withdrawal symptoms with recent seizure. Patient will be admitted to IMU with CIWA scores q.4 hours. Will scheduled Librium 50 mg Q [address] patient on p.r.n. Ativan. Will give the patient thiamine supplementation x1 now and daily. Will give IV fluid hydration given patient does have tachycardia and has acute kidney injury will. Will monitor urine output closely. Will repeat labs in a.m.. The patient had marked sinus tachycardia in the ER. I gave the patient 2 L of fluid bolus and by time he arrived to the IMU is sinus tachycardia had resolved. Will check B12 folic acid and TSH with a.m. labs. Megaloblastic anemia will check B12 folic acid with a.m. labs. The patient does have elevated LFTs due to acute alcoholic hepatitis. Prior ultrasound of the abdomen did demonstrate fibrosis, hepatomegaly and changes consistent with hepatitis in September. Patient does have uncomplicated nasal bone fracture. No intervention needed. The patient has hyponatremia likely due to volume depletion and/or chronic alcohol use. Will repeat BMP in a.m.. Continue IV fluids. 4 g magnesium sulfate rider ordered due to hypokalemia. Repeat level in a.m.. I will continue patient's lisinopril hydrochlorothiazide despite his acute kidney injury and hypo nature E me a as I feel the patient has other reasons for his acute kidney injury and hyponatremia. If renal function or hyponatremia worsen will discontinue the antihypertensives at this time. Currently patient's blood pressures are stable and upper limit of normal. Patient has been admitted as inpatient status and will choir greater than 2 midnight stay for stabilization of his alcohol withdrawal and treatment of his acute alcoholic pancreatitis and acute kidney injury. Patient has been admitted as inpatient status and will choir greater than 2 midnight stay for stabilization of his alcohol withdrawal and treatment of his acute alcoholic pancreatitis and acute kidney injury. 06/09/2022 interval history: patient with history of alcohol abuse, patient was started on CIWA protocol and monitored with Librium 50 mg q.8 however patient's symptoms worsening he was more anxious increased the Librium to 50 mg q.6 as needed, and Ativan 1 mg every 4 hours as needed, there was a sitter in the room, however on
[2022-06-09 17:29] LABS: Glucose Point of Care 90 mg/dl (65-105)
[2022-06-09] MEDS: LORazepam (*CRX) 1 MG TABLET PO (22:32)
[2022-06-10] VITALS: BP 163/108; PULSE 97; PULSE 98; RESP 19; TEMP 36.7; O2SAT 97
[2022-06-10 00:20] VITALS: PULSE 101
[2022-06-10] MEDS: LABETALOL HCL INJ 100 MG/20 ML VIAL 20 MG IV PUSH (00:20)
[2022-06-10 00:34] LABS: Glucose Point of Care 155 mg/dl (65-105)
[2022-06-10 01:08] VITALS: BP 159/96
[2022-06-10 03:48] VITALS: BP 147/97; PULSE 103; RESP 23; TEMP 37; O2SAT 98
[2022-06-10 03:48] LABS: Hematocrit 32.6 % (42.0-52.0); Mean Corpuscular HGB Conc 33.7 g/dl (32-36); Mean Corpuscular Hemoglobin 35.3 pg (26-34); Mean Corpuscular Volume 104.5 fl (80-100); Mean Platelet Volume 10.3 fl (7.4-10.4); Platelet Count Result 170 k/mm3 (150-375); Red Blood Count 3.12 M/mm3 (4.6-6.20); Red Cell Distribution Width 15.6 % (11.5-14.5); White Blood Count 11.2 K/mm3 (4.5-10.0)
[2022-06-10 04:00] VITALS: BP 147/97; PULSE 100; PULSE 103
[2022-06-10 04:02] LABS: Alanine Aminotransferase 70 U/L (6-50); Albumin Level 3.3 g/dL (3.5-5.1); Alkaline Phosphatase 202 U/L (38-126); Anion Gap 5 mmol/L (8-16); Aspartate Amino Transferase 85 U/L (17-59); Bilirubin,Total 0.4 mg/dL (0.2-1.3); Blood Urea Nitrogen 7 mg/dL (9-20); Calcium 8.3 mg/dL (8.4-10.2); Carbon Dioxide 26 mmol/L (22-30); Chloride 95 mmol/L (98-107); Estimated CRCL calculation 111 ml/min; Estimated Glomerular Filt Rate > 60; Glucose 132 mg/dL (65-110); Magnesium 1.6 mg/dL (1.6-2.3); Potassium 3.9 mmol/L (3.4-5.0); Sodium 126 mmol/L (137-145)
[2022-06-10 08:00] VITALS: BP 147/97; PULSE 100; PULSE 103; PULSE 96; PULSE 98; RESP 20; TEMP 37; O2SAT 98; O2SAT 99
[2022-06-10] MEDS: lisinopriL 20 MG TABLET PO (08:31)
[2022-06-10] MEDS: ENOXAPARIN 40 MG/0.4 ML SYRINGE SUB-Q (08:31)
[2022-06-10] MEDS: THIAMINE HCL 100 MG TABLET 500 MG PO (08:32)
[2022-06-10] MEDS: THERAPEUTIC MULTIVITAMINS/MINERALS TAB (*BKC) 1 TABLET PO (08:32)
[2022-06-10] MEDS: NICOTINE (*PBKC) 21 MG PATCH 1 PATCH TRANSDERM (08:32)
[2022-06-10] MEDS: MELOXICAM 7.5 MG TABLET 15 MG PO (08:32)
[2022-06-10] MEDS: FOLIC ACID 1 MG/0.2 ML INJ IV PUSH (10:32)
--- NOTE | 2022-06-10 12:41 | PM.DS ---
DS: Admitting Diagnosis Discharge Date 06/10/2022 Admitting Diagnosis Withdrawing from alcohol DS: Discharge Diagnosis Discharge Diagnosis (1) Alcohol withdrawal seizure: Qualifiers: Complication of substance-induced condition: uncomplicated Qualified Code(s): F10.930 - Alcohol use, unspecified with withdrawal, uncomplicated; R56.9 - Unspecified convulsions Code(s): F10.939 - Alcohol use, unspecified with withdrawal, unspecified; R56.9 - Unspecified convulsions Status: Acute (2) Alcohol withdrawal: Qualifiers: Complication of substance-induced condition: uncomplicated Qualified Code(s): F10.930 - Alcohol use, unspecified with withdrawal, uncomplicated Code(s): F10.939 - Alcohol use, unspecified with withdrawal, unspecified Status: Acute (3) MAR[place]UY (acute kidney injury): Code(s): N17.9 - Acute kidney failure, unspecified Status: Acute (4) Acute alcoholic hepatitis: Code(s): K70.10 - Alcoholic hepatitis without ascites Status: Acute (5) Closed fracture nasal bone: Qualifiers: Encounter type: initial encounter Qualified Code(s): S02.2XXA - Fracture of nasal bones, initial encounter for closed fracture Code(s): S02.2XXA - Fracture of nasal bones, initial encounter for closed fracture Status: Acute (6) Hypokalemia: Code(s): E87.6 - Hypokalemia Status: Acute (7) Hyponatremia: Code(s): E87.1 - Hypo-osmolality and hyponatremia Status: Acute (8) Hypomagnesemia: Code(s): E83.42 - Hypomagnesemia Status: Acute (9) Megaloblastic anemia: Code(s): D53.1 - Other megaloblastic anemias, not elsewhere classified Status: Acute Plan Patient's presenting with alcohol withdrawal symptoms with recent seizure. Patient will be admitted to IMU with CIWA scores q.4 hours. Will scheduled Librium 50 mg Q [address] patient on p.r.n. Ativan. Will give the patient thiamine supplementation x1 now and daily. Will give IV fluid hydration given patient does have tachycardia and has acute kidney injury will. Will monitor urine output closely. Will repeat labs in a.m.. The patient had marked sinus tachycardia in the ER. I gave the patient 2 L of fluid bolus and by time he arrived to the IMU is sinus tachycardia had resolved. Will check B12 folic acid and TSH with a.m. labs. Megaloblastic anemia will check B12 folic acid with a.m. labs. The patient does have elevated LFTs due to acute alcoholic hepatitis. Prior ultrasound of the abdomen did demonstrate fibrosis, hepatomegaly and changes consistent with hepatitis in September. Patient does have uncomplicated nasal bone fracture. No intervention needed. The patient has hyponatremia likely due to volume depletion and/or chronic alcohol use. Will repeat BMP in a.m.. Continue IV fluids. 4 g magnesium sulfate rider ordered due to hypokalemia. Repeat level in a.m.. I will continue patient's lisinopril hydrochlorothiazide despite his acute kidney injury and hypo nature E me a as I feel the patient has other reasons for his acute kidney injury and hyponatremia. If renal function or hyponatremia worsen will discontinue the antihypertensives at this time. Currently patient's blood pressures are stable and upper limit of normal. Patient has been admitted as inpatient status and will choir greater than 2 midnight stay for stabilization of his alcohol withdrawal and treatment of his acute alcoholic pancreatitis and acute kidney injury. Patient has been admitted as inpatient status and will choir greater than 2 midnight stay for stabilization of his alcohol withdrawal and treatment of his acute alcoholic pancreatitis and acute kidney injury. 06/09/2022 interval history: patient with history of alcohol abuse, patient was started on CIWA protocol and monitored with Librium 50 mg q.8 however patient's symptoms worsening he was more anxious increased the Librium to
== END 2022-06-10 13:00 | disposition home or self-care (01) | DRG 896 ==
LOC: ANHED 17:16 → ANH3MEDSUR 18:55 → ANHIMU 22:52 → ANHICU 06-07 23:04
PROVIDERS: Internal Medicine; Admitting Provider Internal Medicine; Emergency Provider Emergency Medicine; PCP Family Medicine; Visit Provider Family Medicine
DX: F10.139 Alcohol abuse with withdrawal, unspecified (principal); K85.20 Alcohol induced acute pancreatitis without necrosis or infection; G40.89 Other seizures; E87.1 Hypo-osmolality and hyponatremia; N17.9 Acute kidney failure, unspecified; F10.131 Alcohol abuse with withdrawal delirium; K70.10 Alcoholic hepatitis without ascites; Z20.822 Contact with and (suspected) exposure to COVID-19; S02.2XXA Fracture of nasal bones, initial encounter for closed fracture; W18.39XA Other fall on same level, initial encounter; E87.6 Hypokalemia; E83.42 Hypomagnesemia; D53.1 Other megaloblastic anemias, not elsewhere classified; F41.9 Anxiety disorder, unspecified; E78.5 Hyperlipidemia, unspecified; I10 Essential (primary) hypertension; F17.210 Nicotine dependence, cigarettes, uncomplicated; E86.0 Dehydration
CPT/HCPCS: 36415; 70450; 70486; 72125; 80053; 80307; 82550; 82607; 82746; 82948; 83735; 84100; 84443; 85025; 85027; 87636; 93005; 96365; 96366; 96375; 99285; A9270; J1630; J1650; J2060; J3411; J3475; J3480; J7030; J7040

== ENCOUNTER 2022-07-02 07:13 | Outpatient (CLI) | payer OTHER, SELFPAY ==
[2022-07-02 08:27] LABS: Alanine Aminotransferase 38 U/L (6-50); Albumin Level 4.5 g/dL (3.5-5.1); Alkaline Phosphatase 86 U/L (38-126); Anion Gap 8 mmol/L (8-16); Aspartate Amino Transferase 35 U/L (17-59); Bilirubin,Total 0.3 mg/dL (0.2-1.3); Blood Urea Nitrogen 10 mg/dL (9-20); Calcium 9.4 mg/dL (8.4-10.2); Carbon Dioxide 24 mmol/L (22-30); Chloride 106 mmol/L (98-107); Cholesterol 145 mg/dL (0-200); Estimated Glomerular Filt Rate > 60; Glucose 99 mg/dL (65-110); HDL Direct 51 mg/dL; Potassium 4.6 mmol/L (3.4-5.0); Sodium 138 mmol/L (137-145); Triglycerides 105 mg/dL (<150)
[2022-07-02 08:46] LABS: Creatine Kinase 62 U/L (55-170); LDL Cholesterol Direct 57 mg/dL
== END 2022-07-02 07:14 | disposition home or self-care (01) ==
LOC: ANHLAB 07:16
PROVIDERS: PCP Family Medicine; Visit Provider Nurse Practitioner Family
DX: E78.5 Hyperlipidemia, unspecified (principal); E87.1 Hypo-osmolality and hyponatremia; E87.6 Hypokalemia; N17.9 Acute kidney failure, unspecified; R74.8 Abnormal levels of other serum enzymes; Z79.899 Other long term (current) drug therapy
CPT/HCPCS: 36415; 80053; 80061; 82550

== ENCOUNTER 2022-08-14 08:00 | Outpatient (RCR) | payer OTHER, SELFPAY ==
--- NOTE | 2022-07-17 16:39 | PTOPEVAL1 ---
Assessment and note entered by William Castro, PT Evaluation Information Assessment Status Evaluation Diagnosis Back pain with L LE radiating symptoms Onset about 3 months ago. Subjective Information The patient reports about 3 months ago he was moving a blower for insulation up 2 flights of stairs and after about 8 steps he stated he could move it anymore and sat down to rest. Later that night he went for a walk and had to stop secondary to pain. He reports the pain radiated down the front of the L leg into the thigh and stops at the knee. Has previous history of sciatica. Main aggravating issues are walking, stairs, ladders, getting in and out of car. Does use topical ointments and Aleve for pain meds. Recently stopped drinking Clinical summary Gerald is a 56 year old patient coming to the clinic for low back pain with radiating symptoms down the L LE. He shows weakness in the hips notably in NITIN hip extension and tightness in the L piriformis. Physical therapy will work on the patient's hip and core strengthening along with stretches and manual and modalities to reduce pain. These treatments will address the objective and functional deficits as defined above. The patient will be advanced safely and appropriately in order for the patient to progress towards his/her prior level of function. Additional exercises will be introduced and as well as a comprehensive home exercise program upon discharge, if needed, ?to ensure carryover of functional gains achieved in the clinic. This treatment plan has been reviewed and agreement upon by the patient.
--- NOTE | 2022-08-01 12:43 | PCPTNOTE ---
The patient treatment was not able to be completed on 08/01/22 due to patient showing up 35 mins late. Will plan to continue treatment per plan of care.
--- NOTE | 2022-08-13 09:04 | PCPTNOTE ---
Patient called & cancelled scheduled appointment this date due to inability to come in today, rescheduled for tomorrow.
--- NOTE | 2022-08-14 09:04 | PTOPDC ---
Assessment and note entered by William Castro, PT Evaluation Information Assessment Status Discharge Diagnosis Back pain with LLE radiating symptoms Onset about 4 months ago. Subjective Information Patient reports that the pain is just not getting any better. He may feel better for a little bit after therapy with the stretching, manual therapy, and modalities, but then the next day he is just being back to being stiff and limping while he is walking. Also has a L finger fx that patient states he got a pin in and he doesn't want to talk about it. Patient hard to keep on task. Reported Pain Level Pain Score Severe Pain: Andre Jordan Additional Pain Score Comments in the L SI joint/piriformis and going down the leg. Assessment PT Clinical Summary Gerald is a 56 year old male coming into the clinic for low back pain radiating down the LLE. 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 Hip extension is slightly stronger, but did not meet goal, piriformis still is very tight and pain goals of centralization and 2/10 at worst not met. At this time recommend stopping physical therapy and getting imaging done or referral to a back specialist to address this condition that does not appear to be improving. Discharge from skilled physical therapy. Plan of Care PT Services Indicated No Treatment Frequency and discharge from skilled physical therapy. Duration
== END 2022-08-14 11:11 | disposition home or self-care (01) ==
LOC: ANHPT 08:00
PROVIDERS: PCP Family Medicine; Visit Provider Physician Assistant Medical
DX: M54.9 Dorsalgia, unspecified (principal)
CPT/HCPCS: 97014; 97110; 97140; 97161; 97530; 99199; G0283

== ENCOUNTER 2022-10-24 16:38 | Outpatient (CLI) | payer OTHER, SELFPAY ==
--- NOTE | ~2022-10-24 | MR_ITS ---
EXAMINATION: MR lumbar spine wo con DATE: 10/24/2022 17:13 INDICATION: Severe back pain. TECHNIQUE: Magnetic resonance imaging (MRI) of the lumbar spine was performed without intravenous con trast. Sequences included sagittal T2-weighted FSE, sagittal T2-weighted FS FSE, sagittal T1-weighted FSE, and axial T2-weighted FSE. COMPARISON: Lumbar spine radiographs 03/29/2022 FINDINGS: There is 10 degrees dextroscoliosis of lumbar spine. There is 4 mm retrolisthesis of L3 on L4 and L4 on L5. There is chronic anterior wedging of T11 and T12 vertebral bodies. There is moderate ly decreased disc height at T12-L1, mildly decreased disc height at L2-L3, severely decreased disc he ight at L3-L4, and moderately decreased disc height at L4-L5 with endplate remodeling. The distal spi nal cord signal intensity is normal. The conus medullaris is at L1. The following disc levels are spe cifically discussed: T12-L1: The disc is bulging. There is mild bilateral facet joint osteoarthritis. There is no neural f oraminal stenosis. There is mild central canal stenosis. L1-L2: The disc does not extend beyond the endplate margin. There is mild bilateral facet joint osteo arthritis. There is no neural foraminal stenosis. There is no central canal stenosis. L2-L3: The disc is bulging. There is mild bilateral facet joint osteoarthritis. There is mild bilater al neural foraminal stenosis. There is mild central canal stenosis. L3-L4: The disc is bulging with superimposed left subarticular zone extrusion with 13 mm inferior ext ension and mass effect on the left L4 nerve root. There is moderate bilateral facet joint osteoarthri tis. There is mild right and moderate left neural foraminal stenosis. There is mild central canal ivelisse nosis. There is severe stenosis of left lateral recess at the left L4 pedicular level. L4-L5: The disc is bulging. There is moderate bilateral facet joint osteoarthritis. There is mild rig ht and moderate left neural foraminal stenosis. There is mild central canal stenosis. L5-S1: The disc does not extend beyond the endplate margin. There is severe right and mild left facet joint osteoarthritis. There is mild right neural foraminal stenosis. There is no central canal steno sis. IMPRESSION: 1. Severe lumbar spondylosis. 2. Lumbar dextroscoliosis. Reviewed, dictated and finalized at location E.
== END 2022-10-24 16:39 | disposition home or self-care (01) ==
PROVIDERS: PCP Nurse Practitioner Family; Visit Provider Nurse Practitioner Family
DX: M54.9 Dorsalgia, unspecified (principal); M43.06 Spondylolysis, lumbar region; M41.86 Other forms of scoliosis, lumbar region
CPT/HCPCS: 72148

== ENCOUNTER 2022-12-11 12:31 | Inpatient (IN) | payer OTHER, SELFPAY ==
[2022-12-11] VITALS (7 sets, daily range): BP systolic 162–176; BP diastolic 98–102; PULSE 100–140; RESP 20–22; TEMP 36.8; O2SAT 98
--- NOTE | ~2022-12-11 | CT_ITS ---
EXAMINATION: CT brain wo con DATE: 12/11/22 INDICATION: Altered mental status. TECHNIQUE: Computed tomography (CT) of the head was performed without intravenous contrast. The mA wa s adjusted according to patient size. Iterative reconstruction technique was employed. The dose-lengt h product was 605 mGy-cm. COMPARISON: Head CT 06/06/2022 FINDINGS: There is no intracranial hemorrhage, acute infarction, or abnormal intracranial mass lesion . There are scattered areas of low attenuation in the cerebral white matter, which is within normal l imits for the patient's age. The ventricles are normal in size. There is mild mucosal thickening in t he paranasal sinuses. The mastoid air cells are normal. The orbits are normal. IMPRESSION: 1. Normal aging brain. Reviewed, dictated and finalized at location A. IMPRESSION: 1. Normal aging brain.
--- NOTE | 2022-12-11 12:46 | ECG_ITS ---
Measurements Intervals [place] Rate: 111 P: 69 IN: 158 QRS: 71 QRSD: 89 T: 72 QT: 353 QTc: 482 Interpretive Statements SINUS TACHYCARDIA LEFT VENTRICULAR HYPERTROPHY WITH SECONDARY ST-T WAVE CHANGES COMPARED TO ECG 06/06/2022 14:00:17 NO SIGNIFICANT CHANGES Electronically Signed On 12-12-2022 13:42:53 CDT by Jen Alonzo M.D.
[2022-12-11] MEDS: MAGNESIUM SULF 1 GM/D5W 100 ML 1 GM/100 ML BAG IVPB (21:11)
[2022-12-11] MEDS: LORazepam INJ (*CRX) 2 MG/ML VIAL 4 MG IV PUSH (21:12)
[2022-12-11] MEDS: SODIUM CHLORIDE 0.9% IV 1,000 ML 150 ML IV CONT (22:00)
--- NOTE | 2022-12-11 22:37 | PC.NURSE ---
This patient, Gerald Lewis, was transferred to [ ICU 3] on 12/11/22 at 2215. Personal belongings sent with patient. Report given to [ ]. Appropriate documentation sent with patient.
--- NOTE | 2022-12-11 22:42 | PC.NURSE ---
This patient, Gerald Lewis, was received from [[id number] ] on 12/11/22 at 3633. Patient/family oriented to unit policies and routines
--- NOTE | 2022-12-11 23:19 | HP_ITS ---
DATE OF SERVICE: 12/11/2022 TIME OF EVALUATION: 1500 hours. CHIEF COMPLAINT: Altered mental status and possible alcohol withdrawal. HISTORY OF PRESENT ILLNESS: This is a 57-year-old male smoker with longstanding history of alcohol withdrawal including history of alcohol withdrawal seizures as well as hypertension who presented to the emergency department from home for evaluation of altered mental status and suspected alcohol withdrawal. The patient provides the following history and his provides additional information with the patient's permission. He drinks at least 1 pint of alcohol a day, sometimes 6-8 airplane shots. He decided last night that he was going to quit drinking and his last drink was about 7:00 p.m. He woke up at 3:00 a.m. with anxiety, sweats, nausea, vomiting, and loose stools every 30 minutes. As the morning progressed, he became confused and reports that he suddenly clenched at the air and stopped talking. There were no reports of obvious seizure activity, however. EMS was summoned and on arrival to the emergency department, his blood pressure was 172/117, pulse 128, respiratory rate 18, pulse ox 94% on room air. He was tachycardic, diaphoretic, tremulous, and anxious. He was loaded with phenobarbital and received 2 mg of IV Ativan with significant improvement in symptoms. At the time of my evaluation, he is somnolent, but arousable and is feeling much better. He is currently alert and oriented x4. He denies fever, headache, chest pain, pleuritic pain, shortness of breath, abdominal pain, epigastric pain, and recurrent nausea and vomiting. He is now being admitted to the IMU for close monitoring and treatment of alcohol withdrawal syndrome. MEDICAL HISTORY: 1. Hypertension. 2. Alcohol abuse. 3. History of alcohol withdrawal seizures. SURGICAL HISTORY: 1. Left 4th finger surgery. 2. Right rotator cuff repair. HOME MEDICATIONS: (Not yet updated). Previously on lisinopril 12.5 mg daily. ALLERGIES: NO KNOWN DRUG ALLERGIES. SOCIAL HISTORY: The patient is and lives with his . He is not currently employed. He had smokes 2-pack of cigarettes a day. He drinks at least a pint of liquor a day and sometimes 6-8 airplane shots. No illicit substance use. He designates his is his surrogate decision maker and he wishes to be a full code. FAMILY HISTORY: Significant for addiction and hypertension. PERTINENT LABORATORY DATA: White blood cell 10.07, hemoglobin 13.3, hematocrit 39.5, platelets 89. Sodium 137, potassium 3.9, chloride 96, carbon dioxide 29, BUN 10, creatinine 0.80, glucose 179, calcium 8.6, magnesium 1.3, total bilirubin 0.877, AST 139, ALT 54, alkaline phosphatase 125, lipase 722. Alcohol level less than 10. IMAGIN. Brain CT, normal aging brain. 2. EKG, sinus tachycardia with normal axis and no acute ST-segment elevations. PHYSICAL EXAM: GENERAL: Mildly ill-appearing male in the semi-delvalle position in bed. He is somnolent, but easily arousable. HEENT: Normocephalic, atraumatic. Pupils are reactive. Extraocular motion intact. Sclerae anicteric. Conjunctivae mildly injected. Tacky mucous membranes. NECK: Supple. CHEST: Respirations are nonlabored. Faint expiratory wheezing. Otherwise clear to auscultation. HEART: Tachycardic with normal S1, S2. Telemetry shows sinus tachycardia with rates around 110 at the time of my evaluation. ABDOMEN: Soft and nondistended with positive bowel sounds. He has mild tenderness to palpation throughout the upper abdomen. No voluntary guarding or rebound tenderness. SKIN: Warm and dry. EXTREMITIES: No cyanosis, clubbing, or edema. Radial and pedal pulses intact. NEUROLOGIC: Alert and oriented x4. Cranial nerves II throug
[2022-12-12] VITALS (21 sets, daily range): BP systolic 126–164; BP diastolic 77–107; PULSE 70–120; RESP 16–35; TEMP 36.6–37.3; O2SAT 94–100; BMI 25.8
[2022-12-12] MEDS: LORazepam INJ (*CRX) 2 MG/ML VIAL 4 MG IV PUSH ×3 (00:30→15:39)
[2022-12-12] MEDS: SODIUM CHLORIDE 0.9% IV 1,000 ML 150 ML IV CONT ×3 (03:45→18:30)
[2022-12-12 04:45] LABS: Hemoglobin 12.6 g/dL (14.0-18.0); Immature Platelet Fraction Pct 12.2 % (0.9-11.2); Mean Corpuscular Hemoglobin 34.9 pg (26-34); Mean Corpuscular Volume 99.7 fl (80-100); Mean Platelet Volume 11.3 fl (7.4-10.4); Platelet Count Result 76 k/mm3 (150-375); Red Blood Count 3.61 M/mm3 (4.6-6.20); Red Cell Distribution Width 13.2 % (11.5-14.5); White Blood Count 7.9 K/mm3 (4.5-10.0)
[2022-12-12 05:00] LABS: Alanine Aminotransferase 34 U/L (6-50); Albumin Level 3.9 g/dL (3.5-5.1); Alkaline Phosphatase 109 U/L (38-126); Anion Gap 6 mmol/L (8-16); Aspartate Amino Transferase 90 U/L (17-59); Bilirubin,Total 0.8 mg/dL (0.2-1.3); Blood Urea Nitrogen 6 mg/dL (9-20); Calcium 7.8 mg/dL (8.4-10.2); Carbon Dioxide 30 mmol/L (22-30); Chloride 95 mmol/L (98-107); Estimated Glomerular Filt Rate > 60; Glucose 96 mg/dL (65-110); Lipase 538 U/L (23-300); Magnesium 1.8 mg/dL (1.6-2.3); Potassium 3.2 mmol/L (3.4-5.0); Sodium 131 mmol/L (137-145)
[2022-12-12 05:01] LABS: Hemoglobin A1C 5.3 % (<5.7)
[2022-12-12] MEDS: SODIUM CHLORIDE 0.9% IV 1,000 ML 999 ML IV CONT (08:08)
[2022-12-12] MEDS: PANTOPRAZOLE SODIUM IV 40 MG VIAL IV PUSH (08:10)
--- NOTE | 2022-12-12 08:10 | WPDCNINT ---
Assessment and Plan Assessment and plan (1) Alcohol withdrawal: Qualifiers: Complication of substance-induced condition: uncomplicated Qualified Code(s): F10.930 - Alcohol use, unspecified with withdrawal, uncomplicated Code(s): F10.939 - Alcohol use, unspecified with withdrawal, unspecified Status: Acute Assessment and Plan: Alcohol withdrawal symptoms as patient presented was tachycardia, diaphoresis, anxiety, confusion, nausea, vomiting -received phenobarbital IV in the ER -patient has been on CIWA protocol -p.r.n. Ativan -will add Librium -continue folic acid and thiamine -will give additional IV fluid bolus -continue maintenance IV fluids -continue to monitor urine output -monitor closely in ICU -may require Precedex infusion (2) Alcoholism: Code(s): F10.20 - Alcohol dependence, uncomplicated Status: Acute Assessment and Plan: Patient is a heavy drinker, once he is more awake and sober will discuss with him cessation of alcohol, will also have care coordination provide the patient with resources for alcohol management (3) Anxiety and depression: Code(s): F41.9 - Anxiety disorder, unspecified; F32.A - Depression, unspecified Status: Acute Assessment and Plan: Anxiety likely related to alcohol withdrawal (4) Hypertension: Code(s): I10 - Essential (primary) hypertension Status: Acute Assessment and Plan: Continue lisinopril (5) Tobacco abuse: Code(s): Z72.0 - Tobacco use Status: Acute Assessment and Plan: Patient with history of tobacco abuse, will child and family counselor on tobacco cessation once he is more awake (6) Elevated lipase: Code(s): R74.8 - Abnormal levels of other serum enzymes Status: Acute Assessment and Plan: Elevated lipase of 538 -will give additional IV fluid bolus -maintenance IV fluids -recheck lipase needed today (7) Thrombocytopenia: Code(s): D69.6 - Thrombocytopenia, unspecified Status: Acute Assessment and Plan: Likely related to alcoholism, patient has not been on heparin or Lovenox. -continue SCDs -no active bleeding noted -will continue to monitor Plan DVT prophylaxis: SCDs, no chemoprophylaxis due to thrombocytopenia Stress ulcer prophylaxis: Note indicated as he is on a diet Nutrition: Regular diet Code Status: Full code Critical Care Time Spent: 46 minute Due to a high probability of clinically significant, life threatening deterioration, the patient required my highest level of preparedness to intervene emergently and I personally spent this critical care time directly and personally managing the patient. This critical care time included obtaining a history; examining the patient; pulse oximetry; ordering and review of studies; arranging urgent treatment with development of a management plan; evaluation of patient's response to treatment; frequent reassessment; and discussions with other providers. It was exclusive of separately billable procedures and treating other patients and teaching time. Please see Assessment and Plan section and the rest of the note for further information on patient assessment and treatment This dictation may have been done utilizing a voice recognition system. Attempts have been made to correct errors. However, there may be uncorrected grammatical, spelling, and recognitions errors present. [employer] Consult Note Consult date: 12/12/22 Reason for consult: Alcohol withdrawal, altered mental status HPI: Gerald Lewis is a 57 year old male with past medical history essential hypertension, alcohol abuse, alcohol withdrawal, alcohol withdrawal seizures, hyperlipidemia, tobacco abuse, obstructive sleep apnea presented the ED on 12/11/2022 with complains of altered mental status and likely alcohol withdrawal. Patient drinks at least 1 pt of alcohol daily and sometimes 6-8 airplane shots. He quit drinking 1 day prior to admission,
[2022-12-12] MEDS: chlordiazePOXIDE (*CRX) 25 MG CAPSULE 50 MG PO ×3 (08:25→23:34)
[2022-12-12] MEDS: lisinopriL 20 MG TABLET PO (08:28)
[2022-12-12] MEDS: hydroCHLOROthiazide 12.5 MG CAPSULE PO (08:31)
[2022-12-12 09:13] LABS: Hematocrit 39.5 % (42.0-52.0); Hemoglobin 13.3 g/dL (14.0-18.0); Mean Corpuscular HGB Conc 33.7 g/dl (32-36); Mean Corpuscular Hemoglobin 33.7 pg (26-34); Platelet Count Result 89 k/mm3 (150-375); Red Blood Count 3.95 M/mm3 (4.6-6.20); Red Cell Distribution Width 12.9 % (11.5-14.5); White Blood Count 10.1 K/mm3 (4.5-10.0)
[2022-12-12 09:14] LABS: Basophils Percent Auto 0.3 % (0.2-1.2); Immature Granulocyte Absolute 0.04 K/mm3 (0.00-0.031); Immature Granulocyte Percent A 0.4 % (0-0.5); Mean Platelet Volume 10.9 fl (7.4-10.4); Monocytes Absolute Auto 0.7 K/mm3 (0.1-0.6); Neutrophils Absolute Auto 8.9 K/mm3 (1.3-6.7); Neutrophils Percent Auto 88.3 % (45.5-73.1)
[2022-12-12 09:15] LABS: Alanine Aminotransferase 54 U/L (6-50); Anion Gap 12 mmol/L (8-16); Aspartate Amino Transferase 139 U/L (17-59); Bilirubin,Total 0.9 mg/dL (0.2-1.3); Blood Urea Nitrogen 10 mg/dL (9-20); Calcium 8.6 mg/dL (8.4-10.2); Carbon Dioxide 29 mmol/L (22-30); Chloride 96 mmol/L (98-107); Estimated Glomerular Filt Rate > 60; Glucose 179 mg/dL (65-110); Potassium 3.9 mmol/L (3.4-5.0); Sodium 137 mmol/L (137-145)
[2022-12-12 09:16] LABS: Albumin Level 4.4 g/dL (3.5-5.1); Alkaline Phosphatase 125 U/L (38-126); Ethanol < 10 mg/dL (<10); Lipase 722 U/L (23-300); Total Protein 8.1 g/dL (6.3-8.2)
[2022-12-12 09:17] LABS: Magnesium 1.3 mg/dL (1.6-2.3)
[2022-12-12 09:18] LABS: Phosphorus 3.4 mg/dL (2.5-4.5)
[2022-12-12] MEDS: FOLIC ACID 1 MG/0.2 ML INJ IV PUSH (09:32)
[2022-12-12] MEDS: THIAMINE HCL 200 MG/2 ML VIAL 100 MG IV PUSH (09:33)
[2022-12-12] MEDS: POTASSIUM CHLORIDE 20 MEQ PACKET (FOR LIQUID) 40 MEQ FEED TUBE (11:11)
--- NOTE | 2022-12-12 13:48 | PM.IMPN ---
Progress Note: A&P Assessment and Plan (1) Alcohol withdrawal: Qualifiers: Complication of substance-induced condition: uncomplicated Qualified Code(s): F10.930 - Alcohol use, unspecified with withdrawal, uncomplicated Code(s): F10.939 - Alcohol use, unspecified with withdrawal, unspecified Status: Acute Assessment and Plan: 12/12/2022: presented with altered mental status and suspected alcohol withdrawal. Drinks at least 1 pt of alcohol a day decided that he was going to quit drinking on 12/10/2022 last drink at 7:00 p.m. woke up in the morning with anxiety sweating nausea and vomiting and diarrhea. Started weak confused no obvious seizure-like activity. ED noted hypertensive 172/617 with tachycardia up pulse rate of 128. Diaphoretic. Was loaded with phenobarbital and 2 mg of Ativan given by the EMS. He was somnolent but arousable in the ED continue CIWA protocol started on thiamine and folic acid replace electrolytes. Random blood glucose 179. Thrombocytopenic due to longstanding history of alcoholism. Added on Librium. Treated as alcohol withdrawal DVT prophylaxis with SCDs. EKG with sinus tachycardia. Mildly hypokalemic mildly elevated LFTs stable. Lipase elevated as. alcohol level less than 10. CT head negative (2) Alcoholism: Code(s): F10.20 - Alcohol dependence, uncomplicated Status: Acute (3) Anxiety and depression: Code(s): F41.9 - Anxiety disorder, unspecified; F32.A - Depression, unspecified Status: Acute (4) Hypertension: Code(s): I10 - Essential (primary) hypertension Status: Acute (5) Tobacco abuse: Code(s): Z72.0 - Tobacco use Status: Acute (6) Elevated lipase: Code(s): R74.8 - Abnormal levels of other serum enzymes Status: Acute (7) Thrombocytopenia: Code(s): D69.6 - Thrombocytopenia, unspecified Status: Acute Subjective Date/time seen: 12/12/22 13:48 Interval history: 12/12/2022: presented with altered mental status and suspected alcohol withdrawal. Drinks at least 1 pt of alcohol a day decided that he was going to quit drinking on 12/10/2022 last drink at 7:00 p.m. woke up in the morning with anxiety sweating nausea and vomiting and diarrhea. Started weak confused no obvious seizure-like activity. ED noted hypertensive 172/617 with tachycardia up pulse rate of 128. Diaphoretic. Was loaded with phenobarbital and 2 mg of Ativan given by the EMS. He was somnolent but arousable in the ED continue CIWA protocol started on thiamine and folic acid replace electrolytes. Random blood glucose 179. Thrombocytopenic due to longstanding history of alcoholism. Added on Librium. Treated as alcohol withdrawal DVT prophylaxis with SCDs. EKG with sinus tachycardia. Mildly hypokalemic mildly elevated LFTs stable. Lipase elevated as. alcohol level less than 10. CT head negative Review of Systems Review of Systems: ROS unobtainable: Yes unobtainable due to medical condition Exam Narrative: General: Patient is somnolent, in no acute distress HEENT:? Pupils are equal and reactive, sclera is clear Neck:? Supple Respiratory:? Clear to auscultation bilaterally, no wheezing, adequate air entry Cardiac:? S1-S2 is normal, sinus tachycardia Abdomen:? Soft, nontender, nondistended, normoactive bowel sounds Extremities:? No edema, warm, palpable pedal pulses Neuro:? Patient opens to name and falls back to sleep, is disoriented, does give one-word answers, does follow simple commands in all extremities. Tremulous Skin:? Warm and dry Psych:? Anxious Objective Data Vital Signs Vital Signs: Vital Signs - 24 hr 12/11/22 20:09 12/11/22 21:52 12/11/22 21:30 Temperature 98.2 F Pulse Rate 133 H Pulse Rate [Monitor] 115 H Respiratory Rate 20 Blood Pressure 176/98 H 176/98 H Pulse Oximetry 98 Oxygen Delivery 12/11/22 20:00 12/11/22 22:30 12/11/22 22:00 Temperature Pulse Rate 13
[2022-12-12] MEDS: NICOTINE (*PBKC) 14 MG PATCH 1 PATCH TRANSDERM (15:24)
[2022-12-12] MEDS: dexmedeTOMIDine 400 MCG/100 ML 400 MCG/100 ML BAG IV CONT (16:20)
[2022-12-12] MEDS: dexmedeTOMIDine 400 MCG/100 ML 400 MCG/100 ML BAG 13.88 MCG IV CONT (23:31)
[2022-12-13] VITALS (25 sets, daily range): BP systolic 109–161; BP diastolic 68–107; PULSE 70–107; RESP 16–254; TEMP 36.6–38.1; O2SAT 96–100
[2022-12-13] MEDS: SODIUM CHLORIDE 0.9% IV 1,000 ML 150 ML IV CONT ×2 (01:11→14:55)
[2022-12-13 03:18] LABS: Hemoglobin 12.6 g/dL (14.0-18.0); Immature Platelet Fraction Pct 12.8 % (0.9-11.2); Mean Corpuscular HGB Conc 34.1 g/dl (32-36); Mean Corpuscular Hemoglobin 34.6 pg (26-34); Mean Corpuscular Volume 101.6 fl (80-100); Mean Platelet Volume 11.3 fl (7.4-10.4); Platelet Count Result 76 k/mm3 (150-375); Red Blood Count 3.64 M/mm3 (4.6-6.20); Red Cell Distribution Width 13.2 % (11.5-14.5); White Blood Count 8.7 K/mm3 (4.5-10.0)
[2022-12-13 03:25] LABS: Alanine Aminotransferase 28 U/L (6-50); Albumin Level 3.6 g/dL (3.5-5.1); Alkaline Phosphatase 88 U/L (38-126); Anion Gap 9 mmol/L (8-16); Aspartate Amino Transferase 54 U/L (17-59); Bilirubin,Total 0.7 mg/dL (0.2-1.3); Blood Urea Nitrogen 5 mg/dL (9-20); Calcium 7.6 mg/dL (8.4-10.2); Carbon Dioxide 25 mmol/L (22-30); Chloride 100 mmol/L (98-107); Estimated CRCL calculation 139 ml/min; Estimated Glomerular Filt Rate > 60; Glucose 106 mg/dL (65-110); Lipase 172 U/L (23-300); Magnesium 1.5 mg/dL (1.6-2.3); Phosphorus 2.4 mg/dL (2.5-4.5); Sodium 134 mmol/L (137-145)
[2022-12-13] MEDS: POTASSIUM CHLORIDE INJ 40 MEQ in SODIUM CHLORIDE 0.9% IV 500 ML 130 MEQ IVPB (04:34)
[2022-12-13] MEDS: MAGNESIUM SULF 2 GM/WATER 50ML 2 GM/50 ML BAG IVPB (04:34)
[2022-12-13] MEDS: dexmedeTOMIDine 400 MCG/100 ML 400 MCG/100 ML BAG 5.95 MCG IV CONT (06:28)
--- NOTE | 2022-12-13 08:10 | WPDINTPN ---
Progress Note: A&P Assessment and Plan (1) Alcohol withdrawal: Qualifiers: Complication of substance-induced condition: uncomplicated Qualified Code(s): F10.930 - Alcohol use, unspecified with withdrawal, uncomplicated Code(s): F10.939 - Alcohol use, unspecified with withdrawal, unspecified Status: Acute Assessment and Plan: Alcohol withdrawal symptoms as patient presented was tachycardia, diaphoresis, anxiety, confusion, nausea, vomiting -received phenobarbital IV in the ER -patient has been on CIWA protocol -p.r.n. Ativan -continue -continue folic acid and thiamine -will decrease maintenance IV fluids since lipase has normalized -Continue to monitor urine output -monitor closely in ICU -currently on Precedex infusion, will wean to maintain a RASS of 0 (2) Alcoholism: Code(s): F10.20 - Alcohol dependence, uncomplicated Status: Acute Assessment and Plan: Patient is a heavy drinker, once he is more awake and sober will discuss with him cessation of alcohol, will also have care coordination provide the patient with resources for alcohol management (3) Anxiety and depression: Code(s): F41.9 - Anxiety disorder, unspecified; F32.A - Depression, unspecified Status: Acute Assessment and Plan: Anxiety likely related to alcohol withdrawal (4) Hypertension: Code(s): I10 - Essential (primary) hypertension Status: Acute Assessment and Plan: Continue lisinopril and HCTZ (5) Tobacco abuse: Code(s): Z72.0 - Tobacco use Status: Acute Assessment and Plan: Patient with history of tobacco abuse, will halfway house counselor on tobacco cessation once he is more awake (6) Elevated lipase: Code(s): R74.8 - Abnormal levels of other serum enzymes Status: Acute Assessment and Plan: Elevated lipase of 538 on admission -received adequate amount of IV fluids -will decrease maintenance fluids -lipase has normalized (7) Thrombocytopenia: Code(s): D69.6 - Thrombocytopenia, unspecified Status: Acute Assessment and Plan: Likely related to alcoholism, patient has not been on heparin or Lovenox. Platelets low but stable -continue SCDs -no active bleeding noted -will continue to monitor Plan DVT prophylaxis: SCDs, no chemoprophylaxis due to thrombocytopenia Stress ulcer prophylaxis: Note indicated as he is on a diet Nutrition: Regular diet Code Status: Full code Critical Care Time Spent: 33 minutes Due to a high probability of clinically significant, life threatening deterioration, the patient required my highest level of preparedness to intervene emergently and I personally spent this critical care time directly and personally managing the patient. This critical care time included obtaining a history; examining the patient; pulse oximetry; ordering and review of studies; arranging urgent treatment with development of a management plan; evaluation of patient's response to treatment; frequent reassessment; and discussions with other providers. It was exclusive of separately billable procedures and treating other patients and teaching time. Please see Assessment and Plan section and the rest of the note for further information on patient assessment and treatment This dictation may have been done utilizing a voice recognition system. Attempts have been made to correct errors. However, there may be uncorrected grammatical, spelling, and recognitions errors present. Subjective Date/time seen: 12/13/22 08:10 Interval history: Reason for consult: Alcohol withdrawal, altered mental status 12/13/2022: Patient seen and examined the ICU, patient is somnolent, on Precedex infusion, barely opens his eyes, gives one-word answers, most of time he is mumbling. Denies any shortness of breath or pain, no nausea vomiting. Patient is hemodynamically stable, afebrile with adequate urine output. Review of Systems Review of Systems:
[2022-12-13] MEDS: FOLIC ACID 1 MG/0.2 ML INJ IV PUSH (08:12)
[2022-12-13] MEDS: PANTOPRAZOLE SODIUM IV 40 MG VIAL IV PUSH (08:13)
[2022-12-13] MEDS: hydroCHLOROthiazide 12.5 MG CAPSULE PO (08:13)
[2022-12-13] MEDS: lisinopriL 20 MG TABLET PO (08:13)
[2022-12-13] MEDS: NICOTINE (*PBKC) 14 MG PATCH 1 PATCH TRANSDERM (08:13)
[2022-12-13] MEDS: THIAMINE HCL 200 MG/2 ML VIAL 100 MG IV PUSH (08:13)
[2022-12-13] MEDS: chlordiazePOXIDE (*CRX) 25 MG CAPSULE 50 MG PO ×2 (11:29→17:51)
[2022-12-13] MEDS: LORazepam INJ (*CRX) 2 MG/ML VIAL IV PUSH (16:02)
--- NOTE | 2022-12-13 16:13 | PM.IMPN ---
Progress Note: A&P Assessment and Plan (1) Alcohol withdrawal: Qualifiers: Complication of substance-induced condition: uncomplicated Qualified Code(s): F10.930 - Alcohol use, unspecified with withdrawal, uncomplicated Code(s): F10.939 - Alcohol use, unspecified with withdrawal, unspecified Status: Acute Assessment and Plan: 12/12/2022: presented with altered mental status and suspected alcohol withdrawal. Drinks at least 1 pt of alcohol a day decided that he was going to quit drinking on 12/10/2022 last drink at 7:00 p.m. woke up in the morning with anxiety sweating nausea and vomiting and diarrhea. Started weak confused no obvious seizure-like activity. ED noted hypertensive 172/617 with tachycardia up pulse rate of 128. Diaphoretic. Was loaded with phenobarbital and 2 mg of Ativan given by the EMS. He was somnolent but arousable in the ED continue CIWA protocol started on thiamine and folic acid replace electrolytes. Random blood glucose 179. Thrombocytopenic due to longstanding history of alcoholism. Added on Librium. Treated as alcohol withdrawal DVT prophylaxis with SCDs. EKG with sinus tachycardia. Mildly hypokalemic mildly elevated LFTs stable. Lipase elevated as. alcohol level less than 10. CT head negative 12/13/2022:presented with altered mental status and suspected alcohol withdrawal. Drinks at least 1 pt of alcohol a day decided that he was going to quit drinking on 12/10/2022 last drink at 7:00 p.m. woke up in the morning with anxiety sweating nausea and vomiting and diarrhea. Started weak confused no obvious seizure-like activity. ED noted hypertensive 172/617 with tachycardia up pulse rate of 128. Diaphoretic. Was loaded with phenobarbital and 2 mg of Ativan given by the EMS. He was somnolent but arousable in the ED continue CIWA protocol started on thiamine and folic acid replace electrolytes. Random blood glucose 179. Thrombocytopenic due to longstanding history of alcoholism. Added on Librium. Treated as alcohol withdrawal DVT prophylaxis with SCDs. EKG with sinus tachycardia. Mildly hypokalemic mildly elevated LFTs stable. Lipase elevated as well but now normalized. alcohol level less than 10. CT head negative. Slowly improving. Manuel a fever this afternoon. Remains on Precedex drip. Continue on CIWA protocol also on Librium scheduled. Replace lytes. (2) Alcoholism: Code(s): F10.20 - Alcohol dependence, uncomplicated Status: Acute (3) Anxiety and depression: Code(s): F41.9 - Anxiety disorder, unspecified; F32.A - Depression, unspecified Status: Acute (4) Hypertension: Code(s): I10 - Essential (primary) hypertension Status: Acute (5) Tobacco abuse: Code(s): Z72.0 - Tobacco use Status: Acute (6) Elevated lipase: Code(s): R74.8 - Abnormal levels of other serum enzymes Status: Acute (7) Thrombocytopenia: Code(s): D69.6 - Thrombocytopenia, unspecified Status: Acute Subjective Date/time seen: 12/13/22 16:13 Interval history: 12/12/2022: presented with altered mental status and suspected alcohol withdrawal. Drinks at least 1 pt of alcohol a day decided that he was going to quit drinking on 12/10/2022 last drink at 7:00 p.m. woke up in the morning with anxiety sweating nausea and vomiting and diarrhea. Started weak confused no obvious seizure-like activity. ED noted hypertensive 172/617 with tachycardia up pulse rate of 128. Diaphoretic. Was loaded with phenobarbital and 2 mg of Ativan given by the EMS. He was somnolent but arousable in the ED continue CIWA protocol started on thiamine and folic acid replace electrolytes. Random blood glucose 179. Thrombocytopenic due to longstanding history of alcoholism. Added on Librium. Treated as alcohol withdrawal DVT prophylaxis with SCDs. EKG with sinus tachycardia. Mildly hypokalemic mildly elevated LFTs stable. Lipase elevated as. alcohol leve
[2022-12-13] MEDS: LORazepam INJ (*CRX) 2 MG/ML VIAL 4 MG IV PUSH (18:15)
[2022-12-13] MEDS: HALOPERIDOL LACTATE 5 MG/ML VIAL IV PUSH (18:37)
[2022-12-13] MEDS: dexmedeTOMIDine 400 MCG/100 ML 400 MCG/100 ML BAG 9.91 MCG IV CONT (21:16)
[2022-12-14] VITALS (15 sets, daily range): BP systolic 86–162; BP diastolic 63–96; PULSE 68–94; RESP 16–34; TEMP 36.8–37.2; O2SAT 93–99
[2022-12-14] MEDS: LORazepam INJ (*CRX) 2 MG/ML VIAL IV PUSH (03:48)
[2022-12-14] MEDS: chlordiazePOXIDE (*CRX) 25 MG CAPSULE 50 MG PO (03:51)
[2022-12-14] MEDS: SODIUM CHLORIDE 0.9% IV 1,000 ML 75 ML IV CONT (04:07)
[2022-12-14 05:00] LABS: Basophils Percent Auto 0.3 % (0.2-1.2); Eosinophils Absolute Auto 0.1 K/mm3 (0-0.3); Eosinophils Percent Auto 0.9 % (0-4.4); Hemoglobin 12.7 g/dL (14.0-18.0); Immature Granulocyte Absolute 0.05 K/mm3 (0.00-0.031); Immature Granulocyte Percent A 0.6 % (0-0.5); Immature Platelet Fraction Pct 13.5 % (0.9-11.2); Lymphocytes Absolute Auto 1.81 K/mm3 (0.9-3.2); Lymphocytes Percent Auto 20.5 % (18.3-44.2); Mean Corpuscular HGB Conc 33.4 g/dl (32-36); Mean Corpuscular Hemoglobin 33.6 pg (26-34); Mean Corpuscular Volume 100.5 fl (80-100); Mean Platelet Volume 11.8 fl (7.4-10.4); Monocytes Absolute Auto 0.8 K/mm3 (0.1-0.6); Monocytes Percent Auto 9.5 % (2.6-8.5); Neutrophils Percent Auto 68.2 % (45.5-73.1); Platelet Count Result 91 k/mm3 (150-375); Red Blood Count 3.78 M/mm3 (4.6-6.20); Red Cell Distribution Width 13.2 % (11.5-14.5); White Blood Count 8.8 K/mm3 (4.5-10.0)
[2022-12-14 05:07] LABS: Alanine Aminotransferase 24 U/L (6-50); Albumin Level 3.6 g/dL (3.5-5.1); Alkaline Phosphatase 87 U/L (38-126); Anion Gap 7 mmol/L (8-16); Aspartate Amino Transferase 44 U/L (17-59); Bilirubin,Total 0.5 mg/dL (0.2-1.3); Blood Urea Nitrogen 8 mg/dL (9-20); Carbon Dioxide 26 mmol/L (22-30); Chloride 103 mmol/L (98-107); Estimated CRCL calculation 91 ml/min; Estimated Glomerular Filt Rate > 60; Glucose 154 mg/dL (65-110); Lipase 307 U/L (23-300); Magnesium 1.8 mg/dL (1.6-2.3); Phosphorus 2.6 mg/dL (2.5-4.5); Sodium 136 mmol/L (137-145)
[2022-12-14] MEDS: dexmedeTOMIDine 400 MCG/100 ML 400 MCG/100 ML BAG 7.93 MCG IV CONT (06:26)
--- NOTE | 2022-12-14 08:08 | WPDINTPN ---
Progress Note: A&P Assessment and Plan (1) Alcohol withdrawal: Qualifiers: Complication of substance-induced condition: uncomplicated Qualified Code(s): F10.930 - Alcohol use, unspecified with withdrawal, uncomplicated Code(s): F10.939 - Alcohol use, unspecified with withdrawal, unspecified Status: Acute Assessment and Plan: Alcohol withdrawal symptoms as patient presented was tachycardia, diaphoresis, anxiety, confusion, nausea, vomiting -received phenobarbital IV in the ER -patient has been on CIWA protocol -p.r.n. Ativan -continue -continue folic acid and thiamine -Continue to monitor urine output -monitor in ICU -currently on Precedex infusion, will wean to maintain a RASS of 0 -will add low-dose Seroquel (2) Alcoholism: Code(s): F10.20 - Alcohol dependence, uncomplicated Status: Acute Assessment and Plan: Patient is a heavy drinker, once he is more awake and sober will discuss with him cessation of alcohol, will also have care coordination provide the patient with resources for alcohol management (3) Anxiety and depression: Code(s): F41.9 - Anxiety disorder, unspecified; F32.A - Depression, unspecified Status: Acute Assessment and Plan: Anxiety likely related to alcohol withdrawal, treatment as above (4) Hypertension: Code(s): I10 - Essential (primary) hypertension Status: Acute Assessment and Plan: Continue lisinopril -hold HCTZ (5) Tobacco abuse: Code(s): Z72.0 - Tobacco use Status: Acute Assessment and Plan: Patient with history of tobacco abuse, will aids counselor on tobacco cessation once he is more awake (6) Elevated lipase: Code(s): R74.8 - Abnormal levels of other serum enzymes Status: Acute Assessment and Plan: Elevated lipase of 538 on admission -received adequate amount of IV fluids -continue maintenance IV fluids -lipase trending up will hold HCTZ (7) Thrombocytopenia: Code(s): D69.6 - Thrombocytopenia, unspecified Status: Acute Assessment and Plan: Likely related to alcoholism, patient has not been on heparin or Lovenox. -Platelets improving, continue to monitor -continue SCDs -no active bleeding noted Plan DVT prophylaxis: SCDs, no chemoprophylaxis due to thrombocytopenia Stress ulcer prophylaxis: Note indicated as he is on a diet Nutrition: Regular diet Code Status: Full code Critical Care Time Spent: 33 minutes Due to a high probability of clinically significant, life threatening deterioration, the patient required my highest level of preparedness to intervene emergently and I personally spent this critical care time directly and personally managing the patient. This critical care time included obtaining a history; examining the patient; pulse oximetry; ordering and review of studies; arranging urgent treatment with development of a management plan; evaluation of patient's response to treatment; frequent reassessment; and discussions with other providers. It was exclusive of separately billable procedures and treating other patients and teaching time. Please see Assessment and Plan section and the rest of the note for further information on patient assessment and treatment This dictation may have been done utilizing a voice recognition system. Attempts have been made to correct errors. However, there may be uncorrected grammatical, spelling, and recognitions errors present. Subjective Date/time seen: 12/14/22 08:08 Interval history: Reason for consult: Alcohol withdrawal, altered mental status 12/14/2022: Patient seen and examined the ICU, more awake this morning, remains on Precedex infusio. Yesterday evening patient got a little belligerent, was totally maxed out on Precedex infusion, received Ativan 4 mg IV x1 and was given Haldol 5 mg IV x1. Denies any shortness of breath or pain, no nausea vomiting. Patient is hemodynamically stable, afe
[2022-12-14] MEDS: THIAMINE HCL 200 MG/2 ML VIAL 100 MG IV PUSH (08:23)
[2022-12-14] MEDS: lisinopriL 20 MG TABLET PO (08:24)
[2022-12-14] MEDS: NICOTINE (*PBKC) 14 MG PATCH 1 PATCH TRANSDERM (08:24)
[2022-12-14] MEDS: PANTOPRAZOLE SODIUM IV 40 MG VIAL IV PUSH (08:24)
[2022-12-14] MEDS: POTASSIUM CHLORIDE INJ 40 MEQ in SODIUM CHLORIDE 0.9% IV 500 ML 130 MEQ IVPB (08:25)
[2022-12-14] MEDS: POTASSIUM CHLORIDE 20 MEQ PACKET (FOR LIQUID) 40 MEQ PO (08:25)
[2022-12-14] MEDS: FOLIC ACID 1 MG/0.2 ML INJ IV PUSH (08:25)
[2022-12-14] MEDS: MAGNESIUM SULF 2 GM/WATER 50ML 2 GM/50 ML BAG IVPB (08:25)
[2022-12-14] MEDS: QUEtiapine FUMARATE 12.5 MG TABLET PO (08:40)
--- NOTE | 2022-12-14 11:39 | PC.NURSE ---
Paper Admission charting in patient chart. completed interventions.
--- NOTE | 2022-12-14 13:08 | PC.NURSE ---
Patient adamant on going home. RN informed patient that the only way to go home is to leave AMA. Patient agreeable to leaving AMA. Dr. hurt and Dr. Morris notified. Dr. morris to bedside and informed patient about leaving AMA. Patient still adamant to leave. AMA paper signed and IV out.
--- NOTE | 2022-12-14 14:01 | PM.DS ---
DS: Admitting Diagnosis Discharge Date 12/14/22 Admitting Diagnosis Altered mental status DS: Discharge Diagnosis Discharge Diagnosis (1) Alcohol withdrawal: Qualifiers: Complication of substance-induced condition: uncomplicated Qualified Code(s): F10.930 - Alcohol use, unspecified with withdrawal, uncomplicated Code(s): F10.939 - Alcohol use, unspecified with withdrawal, unspecified Status: Acute (2) Alcoholism: Code(s): F10.20 - Alcohol dependence, uncomplicated Status: Acute (3) Anxiety and depression: Code(s): F41.9 - Anxiety disorder, unspecified; F32.A - Depression, unspecified Status: Acute (4) Hypertension: Code(s): I10 - Essential (primary) hypertension Status: Acute (5) Tobacco abuse: Code(s): Z72.0 - Tobacco use Status: Acute (6) Elevated lipase: Code(s): R74.8 - Abnormal levels of other serum enzymes Status: Acute (7) Thrombocytopenia: Code(s): D69.6 - Thrombocytopenia, unspecified Status: Acute DS: Summary Hospital Course Hospital Course: This is a 57-year-old male who presented with altered mental status and suspected alcohol withdrawal.? Drinks at least 1 pt of alcohol a day decided that he was going to quit drinking on 12/10/2022 last drink at 7:00 p.m. woke up in the morning with anxiety sweating nausea and vomiting and diarrhea.? Started weakneess and confusion. No obvious seizure-like activity.? ED noted hypertensive 172/617 with tachycardia up pulse rate of 128.? Diaphoretic.? Was loaded with phenobarbital and 2 mg of Ativan given by the EMS.? He was somnolent but arousable in the ED. It is suspected he was having the symptoms related to alcohol withdrawal. CIWA protocol was initiated. He was started on thiamine and folic acid replace electrolytes.? Random blood glucose 179.? Thrombocytopenic due to longstanding history of alcoholism.? Added on Librium.? Treated as alcohol withdrawal and was admitted to the ICU. DVT prophylaxis with SCDs.? EKG with sinus tachycardia.? Mildly hypokalemic mildly elevated LFTs stable.? Lipase elevated as well but now normalized.? alcohol level less than 10.? CT head negative.? Slowly improving.? Manuel a fever on 12/13/2022.? He was tapered down to Precedex stable which was also discontinued on 12/14/2022 a.m... He was alert and oriented he was however wanted to go home which was not suggested since he was recently off Precedex drip. Was however adamant. He was alert and oriented x3. He is decisional. He subsequently left against medical advice. Time Spent with Patient Time attestation: Total time spent providing and/or coordinating discharge services: 45 minutes Exam Narrative: General: Patient is more awake, in no acute distress HEENT:? Pupils are equal and reactive, sclera is clear Neck:? Supple Respiratory:? Clear to auscultation bilaterally, no wheezing, adequate air entry Cardiac:? S1-S2 is normal, sinus tachycardia Abdomen:? Soft, nontender, nondistended, normoactive bowel sounds Extremities:? No edema, warm, palpable pedal pulses Neuro:? Patient more awake this morning, alert and oriented x3 Continues have mild tremors of his hands Skin:? Warm and dry DS: Data Data Completed and Pending Labs on day of discharge: Labs from last 24 hours 12/14/22 04:07 WBC 8.8 RBC 3.78 L Hgb 12.7 L Hct 38.0 L MCV 100.5 H MCH 33.6 MCHC 33.4 RDW 13.2 Plt Count 91 L MPV 11.8 H Immature Gran % (Auto) 0.6 H Neut % (Auto) 68.2 Lymph % (Auto) 20.5 [place] % (Auto) 9.5 H Eos % (Auto) 0.9 Baso % (Auto) 0.3 Lymph # (Auto) 1.81 [place] # (Auto) 0.8 H Eos # (Auto) 0.1 Baso # (Auto) 0.0 Abs Immat Gran (auto) 0.05 H Absolute Neuts (auto) 6.0 Absolute Nucleated RBC 0.0 Nucleated RBC % 0.0 % Immature Plt Fraction 13.5 H Sodium 136 L Potassium 3.0 L Chloride 103 Carbon Dioxide 26 Anion Gap 7 L BUN 8 L Creatinine 0.80 Estim Creat Clear
== END 2022-12-14 12:50 | disposition left against medical advice (07) | DRG 770 ==
LOC: ANHED 19:47 → ANHICU 12-13 12:24 → ANHIMU 12-13 12:24
PROVIDERS: Internal Medicine; Physician Assistant; Admitting Provider Internal Medicine; Emergency Provider Emergency Medicine; PCP Nurse Practitioner Family; Visit Provider Internal Medicine
DX: F10.239 Alcohol dependence with withdrawal, unspecified (principal); D69.59 Other secondary thrombocytopenia; F41.8 Other specified anxiety disorders; I10 Essential (primary) hypertension; F17.210 Nicotine dependence, cigarettes, uncomplicated; R74.8 Abnormal levels of other serum enzymes; R73.9 Hyperglycemia, unspecified; G47.33 Obstructive sleep apnea (adult) (pediatric); E87.6 Hypokalemia
CPT/HCPCS: 36415; 70450; 80053; 80307; 83036; 83690; 83735; 84100; 85025; 85027; 85055; 87086; 93005; 96361; 96365; 96374; 96375; 99285; A9270; C9113; J1630; J2060; J3411; J3475; J3480; J7030; J7040

== ENCOUNTER 2023-01-10 13:23 | Inpatient (IN) | payer OTHER, SELFPAY ==
[2023-01-10] VITALS (41 sets, daily range): BP systolic 112–157; BP diastolic 72–105; PULSE 109–158; RESP 14–33; TEMP 36.6–37.3; O2SAT 95–100; BMI 26.0
--- NOTE | ~2023-01-10 | CT_ITS ---
EXAMINATION: CT brain wo con DATE: 01/10/2023 16:00 INDICATION: Head injury. Seizure. TECHNIQUE: Computed tomography (CT) of the head was performed without intravenous contrast. The mA wa s adjusted according to patient size. Iterative reconstruction technique was employed. Exam dose: 68 1.00 mGy-cm total exam DLP. COMPARISON: 12/11/2022 CT brain FINDINGS: Intracranial cerebral atherosclerosis. No intracranial mass lesion or hemorrhage or recent cerebrovascular accident is detected. No midline shift or mass effect. No subdural or epidural hematoma. The paranasal sinuses and mastoid air cells are normally developed and aerated. No skull fracture or bone destruction is detected. IMPRESSION: No acute intracranial finding or skull fracture Reviewed, dictated and finalized at [facility] Reviewed, dictated and finalized at [facility].
--- NOTE | 2023-01-10 13:28 | ECG_ITS ---
Measurements Intervals [place] Rate: 124 P: 64 [place]: 136 QRS: 67 QRSD: 90 T: -85 QT: 322 QTc: 463 Interpretive Statements SINUS TACHYCARDIA VOLTAGE CRITERIA FOR LVH NONSPECIFIC T-WAVE ABNORMALITY- INF/LAT LEADS ABNORMAL ECG COMPARED TO ECG 12/11/2022 12:46:52 T-WAVE ABNORMALITY NOW PRESENT Electronically Signed On 01-10-2023 13:44:42 CDT by Fortunato Louise D.O.
[2023-01-10 13:44] LABS: Basophils Percent Auto 0.2 % (0.2-1.2); Eosinophils Percent Auto 0.1 % (0-4.4); Hematocrit 31.6 % (42.0-52.0); Hemoglobin 10.5 g/dL (14.0-18.0); Immature Granulocyte Absolute 0.06 K/mm3 (0.00-0.031); Immature Granulocyte Percent A 0.5 % (0-0.5); Lymphocytes Absolute Auto 0.81 K/mm3 (0.9-3.2); Lymphocytes Percent Auto 6.7 % (18.3-44.2); Mean Corpuscular HGB Conc 33.2 g/dl (32-36); Mean Corpuscular Hemoglobin 33.5 pg (26-34); Mean Platelet Volume 10.7 fl (7.4-10.4); Monocytes Absolute Auto 1.2 K/mm3 (0.1-0.6); Monocytes Percent Auto 9.9 % (2.6-8.5); Neutrophils Percent Auto 82.6 % (45.5-73.1); Platelet Count Result 123 k/mm3 (150-375); Red Blood Count 3.13 M/mm3 (4.6-6.20); Red Cell Distribution Width 14.6 % (11.5-14.5); White Blood Count 12.1 K/mm3 (4.5-10.0)
[2023-01-10 13:56] LABS: INR 0.9; Prothrombin Time 12.8 Seconds (11.1-14.7)
[2023-01-10 13:57] LABS: Partial Thromboplastin Time 22.5 SECONDS (22.3-36.8)
[2023-01-10 14:01] LABS: Albumin Level 4.5 g/dL (3.5-5.1); Alkaline Phosphatase 77 U/L (38-126); Anion Gap 15 mmol/L (8-16); Aspartate Amino Transferase 42 U/L (17-59); Bilirubin,Total 0.7 mg/dL (0.2-1.3); Blood Urea Nitrogen 42 mg/dL (9-20); Calcium 9.2 mg/dL (8.4-10.2); Carbon Dioxide 21 mmol/L (22-30); Chloride 96 mmol/L (98-107); Estimated CRCL calculation 58 ml/min; Estimated Glomerular Filt Rate 57; Glucose 177 mg/dL (65-110); Potassium 3.9 mmol/L (3.4-5.0); Sodium 132 mmol/L (137-145)
--- NOTE | 2023-01-10 14:01 | ED.GENADULT ---
HPI - General Adult General Chief complaint: Seizure Stated complaint: seizure from [facility] detox Time Seen by Provider: 01/10/23 13:29 History of Present Illness HPI narrative: 57-year-old male with history of alcohol withdrawal seizures presented the emergency department for a suspected seizure. Patient reports he has been attempting to wean his alcohol but did have 3 shots of alcohol this morning. Family heard a loud thump went to check on him and found him unresponsive and foaming at the mouth. They rolled him onto his side. Symptoms did eventually resolve. EMS was called and patient arrived to the emergency department by EMS. Upon arrival to the ED patient is alert oriented at his baseline. Patient denies any complaints at this time other than being thirsty. Patient denies any pain or injury from the seizure today. Related Data Allergies Allergy/AdvReac Type Severity Reaction Status Date / Time No Known Allergies Allergy Mild Verified 01/10/23 13:33 Review of Systems Review of Systems: All systems reviewed & are unremarkable except as noted in HPI and below PMFSH Past Medical History Medical History (Updated 01/10/23 @ 20:55 by Michael Ureña MD) Alcohol abuse Alcohol withdrawal seizure Alcoholism B12 deficiency H/O finger fracture Hearing loss Hyperlipidemia Hypertension Obstructive sleep apnea Radiculopathy Tobacco abuse Vitamin D deficiency Surgical History Surgical History History of bilateral carpal tunnel release History of repair of right rotator cuff Family History Family History Mother Family history of diabetes mellitus in first degree relative Cerebrovascular accident Father Spleen cancer Asthma Cancer Sibling Acute myocardial infarction, Onset Age: 46 Social History Social History Social History: Surrogate decision maker: Sangeeta Lewis, mother. Code status: Full code. Smoking packs per day: 1.5 Smoking cigarettes per day: 30.0 Years smoked: 40 Smoking pack-years: 60.00 Smoking status: Current every day smoker Tobacco type: cigarettes Second hand tobacco smoke exposure: Yes Alcohol intake: current Drinks per week: 100 Alcohol use details: Up to 2 fifths of whiskey a day. Substance use: former Substance use type: does not use Other substance usage details: street pain meds Lack of Transportation: No Lack of Food: Never True Current Housing: I Have Housing Concerned About Future Housing: No Difficulty Paying Gas/Electric Bills: No Difficulty Paying for Meds: No Currently Unemployed: No Education: High School Diploma/GED Difficulty w/ Childcare or Family Care: No Living arrangements: with family Additional living arrangements comments: He lives with his ex-. 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 Gender identity (if verbalized by the patient): Male Spiritual care concerns: No Exam Narrative: APPEARANCE: Well appearing, no pain, no distress, well-nourished. HEAD: normocephalic, atraumatic. EYES: PERRLA/EOMI, conjunctivae clear. NOSE: Normal no drainage EARS:TMS clear with good light reflex. THROAT: Pharynx clear, no exudate. NECK: Supple. No adenopathy, no masses. RESPIRATORY: Airway patent, respirations nonlabored. Clear to auscultation bilaterally, no rales, rhonchi, wheezing. CARDIOVASCULAR: Tachycardia ABDOMINAL: Soft, nontender, nondistended, normal bowel sounds MUSCULOSKELETAL: Moves all extremities. Strength/ROM intact, No edema, No calf tenderness. NEURO: Alert. Cranial nerves II through XII intact. Good gait. Good coordination SKIN: Warm, dry. Normal Color Course Course Emergency Course: 57-year-old male presented emergency d
[2023-01-10 14:09] LABS: Alanine Aminotransferase 44 U/L (6-50)
[2023-01-10 14:50] LABS: Ethanol < 10 mg/dL (<10)
[2023-01-10] MEDS: THIAMINE HCL 200 MG/2 ML VIAL 100 MG IV PUSH (14:53)
[2023-01-10] MEDS: SODIUM CHLORIDE 0.9% IV 1,000 ML 999 ML IV CONT ×2 (15:03→15:04)
[2023-01-10] MEDS: LORazepam INJ (*CRX) 2 MG/ML VIAL IV PUSH (15:04)
--- NOTE | 2023-01-10 16:54 | PC.NURSE ---
Patient report given to BABS Colin. All questions answered and care of patient transferred.
--- NOTE | 2023-01-10 17:45 | ADMGEN ---
This patient, Gerald Lewis, was admitted to Intensive Care Unit-8. Patient/family oriented to hospital policies and general routines including ID bracelet, bed and alarms, visiting hours, pain management, procedures, bathroom and other care routines, personal items, smoking policy, room service/diet, and visiting hours. Information on how to activate the Rapid Response Team has been discussed. Patient/Family are encouraged to report perceived risks to care and to ask questions if they do not understand what they are told or what they should do.
--- NOTE | 2023-01-10 20:48 | PM.IMHP ---
H&P: HPI History of Present Illness Date/Time: 01/10/23 20:48 Chief Complaint: Seizure Narrative: This is a 57-year-old male patient who has a history of alcohol abuse with alcohol withdrawal seizures. The patient was brought to the emergency room and had been foaming at the mouth. The patient had been attempting to wean himself out fall a alcohol and only had 3 shots of alcohol this morning. The family heard a loud thump and found that the patient was unresponsive and foaming at the mouth. They rolled him onto his side. Eventually the symptoms did resolve. EMS was activated upon their arrival the patient was back to his baseline. The patient denies any injury from a seizure that he had today. White count 12.1. H&H 10.5 and 31.6. MCV 101.0. Platelets 123. Sodium slightly low at 132. Glucose was 177. The patient is having diarrhea. Stool specimens were sent. Head CT was read as no acute intracranial finding of skull fracture. The silver recovery operator was notified and the patient was placed in ICU on a Precedex drip. The patient is being admitted to inpatient status on the date of service of 01/10/2023 Review of Systems Review of Systems: All systems reviewed & are unremarkable except as noted in HPI and below Constitutional: Constitutional: Reports as per HPI and Reports no additional constitutional complaints Eyes: Eyes: Reports as per HPI and Reports no additional eye complaints ENT: Reports system reviewed and no additional complaints, except as documented and Reports Normal hearing present Cardiovascular: Cardiovascular: Reports no additional cardiovascular complaints Respiratory: Respiratory: Reports no additional respiratory complaints and Reports no additional respiratory complaints Gastrointestinal: Gastrointestinal: Reports as per HPI and Reports no additional gastrointestinal complaints Musculoskeletal: Musculoskeletal: Reports no additional musculoskeletal complaints Integumentary/Breasts: Skin/Breast: Reports system reviewed and no additional complaints, except as docu and Reports as per HPI Neurologic: Reports system reviewed and no additional complaints, except as documented, Reports as per HPI and Reports Normal hearing present Psychiatric: Psychiatric: Reports no additional psychiatric complaints and Reports as per HPI Endocrine: Endocrine: Reports no additional endocrine complaints Hematologic/Lymphatic: Hematologic/Lymphatic: Reports no additional hematologic/lymphatic complaints Allergic/Immunologic: Allergic/Immunologic: Reports no additional allergic/immunologic complaints PMFSH Past Medical History Medical History Alcohol abuse Alcohol withdrawal seizure Alcoholism B12 deficiency H/O finger fracture Hearing loss Hyperlipidemia Hypertension Obstructive sleep apnea Radiculopathy Tobacco abuse Vitamin D deficiency Surgical History Surgical History History of bilateral carpal tunnel release History of repair of right rotator cuff Family History Family History Mother Family history of diabetes mellitus in first degree relative Cerebrovascular accident Father Spleen cancer Asthma Cancer Sibling Acute myocardial infarction, Onset Age: 46 Social History Social History (Updated 01/11/23 @ 01:36 by Jossie Bradford NP) Social History: The patient is . surrogate decision maker: Sangeeta Lewis, mother. Code status: Full code. Smoking packs per day: 1.5 Smoking cigarettes per day: 30.0 Years smoked: 40 Smoking pack-years: 60.00 Smoking status: Current every day smoker Tobacco type: cigarettes Second hand tobacco smoke exposure: Yes Alcohol intake: current Drinks per week: 100 Alcohol use details: Up to 2 fifths of whiskey a day. Substance use: former Substance use type:
[2023-01-10] MEDS: PANTOPRAZOLE SODIUM IV 40 MG VIAL IV PUSH (21:22)
[2023-01-10] MEDS: dexmedeTOMIDine 400 MCG/100 ML 400 MCG/100 ML BAG IV CONT (22:32)
[2023-01-11] VITALS (16 sets, daily range): BP systolic 81–138; BP diastolic 55–87; PULSE 74–134; RESP 12–30; TEMP 35.8–37.2; O2SAT 98–100
[2023-01-11 00:21] LABS: Glucose Point of Care 124 mg/dl (65-105)
[2023-01-11 01:49] LABS: IFOB Positive Control Positive; Immunochemical Fecal Occult Bl Negative (N)
[2023-01-11 02:57] LABS: Toxigenic C. Diff POSITIVE (NEGATIVE)
[2023-01-11] MEDS: metroNIDAZOLE 500 MG/ISO 100ML 500 MG/100 ML BAG 100 MG IVPB ×2 (03:15→11:59)
[2023-01-11] MEDS: SODIUM CHLORIDE 0.9% IV 1,000 ML 100 ML IV CONT (03:15)
[2023-01-11 03:59] LABS: Basophils Percent Auto 0.3 % (0.2-1.2); Eosinophils Percent Auto 0.4 % (0-4.4); Hematocrit 27.8 % (42.0-52.0); Hemoglobin 9.3 g/dL (14.0-18.0); Immature Granulocyte Absolute 0.02 K/mm3 (0.00-0.031); Immature Granulocyte Percent A 0.2 % (0-0.5); Immature Platelet Fraction Pct 12.6 % (0.9-11.2); Lymphocytes Absolute Auto 1.57 K/mm3 (0.9-3.2); Lymphocytes Percent Auto 16.6 % (18.3-44.2); Mean Corpuscular HGB Conc 33.5 g/dl (32-36); Mean Corpuscular Hemoglobin 34.1 pg (26-34); Mean Corpuscular Volume 101.8 fl (80-100); Mean Platelet Volume 11.3 fl (7.4-10.4); Monocytes Absolute Auto 1.1 K/mm3 (0.1-0.6); Monocytes Percent Auto 11.7 % (2.6-8.5); Neutrophils Absolute Auto 6.7 K/mm3 (1.3-6.7); Neutrophils Percent Auto 70.8 % (45.5-73.1); Platelet Count Result 132 k/mm3 (150-375); Red Blood Count 2.73 M/mm3 (4.6-6.20); Red Cell Distribution Width 14.6 % (11.5-14.5); White Blood Count 9.4 K/mm3 (4.5-10.0)
[2023-01-11 04:07] LABS: Alanine Aminotransferase 25 U/L (6-50); Albumin Level 3.9 g/dL (3.5-5.1); Alkaline Phosphatase 69 U/L (38-126); Anion Gap 9 mmol/L (8-16); Aspartate Amino Transferase 37 U/L (17-59); Bilirubin,Total 0.7 mg/dL (0.2-1.3); Blood Urea Nitrogen 34 mg/dL (9-20); Calcium 8.6 mg/dL (8.4-10.2); Carbon Dioxide 24 mmol/L (22-30); Chloride 102 mmol/L (98-107); Estimated CRCL calculation 81 ml/min; Estimated Glomerular Filt Rate > 60; Glucose 102 mg/dL (65-110); Lipase 190 U/L (23-300); Potassium 3.2 mmol/L (3.4-5.0); Sodium 135 mmol/L (137-145)
[2023-01-11 04:08] LABS: Lactic Acid Reflex 1.6 mmol/L (0.7-2.0)
[2023-01-11] MEDS: FOLIC ACID 1 MG/0.2 ML INJ IV PUSH (08:05)
[2023-01-11] MEDS: THIAMINE HCL 200 MG/2 ML VIAL 100 MG IV PUSH (08:05)
[2023-01-11] MEDS: PANTOPRAZOLE SODIUM IV 40 MG VIAL IV PUSH ×2 (08:07→20:43)
[2023-01-11] MEDS: KCL 20 MEQ/SW 100 ML 100 ML 50 MEQ IVPB (08:17)
--- NOTE | 2023-01-11 08:42 | WPDCNINT ---
Assessment and Plan Assessment and plan (1) Alcohol withdrawal seizure: Code(s): F10.939 - Alcohol use, unspecified with withdrawal, unspecified; R56.9 - Unspecified convulsions Status: Acute Assessment and Plan: Patient presented with alcohol withdrawal seizures Continue seizure precautions P.r.n. Ativan Head CT negative (2) Alcohol withdrawal: Qualifiers: Complication of substance-induced condition: uncomplicated Qualified Code(s): F10.930 - Alcohol use, unspecified with withdrawal, uncomplicated Code(s): F10.939 - Alcohol use, unspecified with withdrawal, unspecified Status: Acute Assessment and Plan: Continue IV fluids IV thiamine and folic acid Patient currently on Precedex which will be weaned P.o. scheduled Librium and p.r.n. IV Ativan as per CIWA score CIWA monitoring (3) C. difficile diarrhea: Code(s): A04.72 - Enterocolitis due to Clostridium difficile, not specified as recurrent Status: Acute Assessment and Plan: Patient presented with 1 day history of watery diarrhea and his stool was positive for C diff Switch IV Flagyl to p.o. vancomycin Isolation IV fluids No abdominal pain or tenderness on exam. (4) Electrolyte abnormality: Code(s): E87.8 - Other disorders of electrolyte and fluid balance, not elsewhere classified Status: Acute Assessment and Plan: Potassium replacement ordered (5) Thrombocytopenia: Code(s): D69.6 - Thrombocytopenia, unspecified Status: Acute Assessment and Plan: Chronic. Likely secondary to alcohol abuse Monitor Plan DVT prophylaxis -SCDs Stress ulcer prophylaxis -on PPI Nutrition -heart healthy diet Code Status - Full Code Total Critical Care Time - 35 minutes Due to a high probability of clinically significant, life threatening deterioration, the patient required my highest level of preparedness to intervene emergently and I personally spent this critical care time directly and personally managing the patient. This critical care time included obtaining a history; examining the patient; pulse oximetry; ordering and review of studies; arranging urgent treatment with development of a management plan; evaluation of patient's response to treatment; frequent reassessment; and discussions with other providers. It was exclusive of separately billable procedures and treating other patients and teaching time. Please see Assessment and Plan section and the rest of the note for further information on patient assessment and treatment [employer] Supervisor Consult Note Consult date: 07/15/23 Reason for consult: Alcohol withdrawal seizures, C diff HPI: Gerald Lewis is a 57 year old male with past medical history of heavy alcohol abuse and history of alcohol withdrawal seizures was brought to ER with seizure at home. Patient drinks 8-10 shots of whiskey every day and yesterday had 3 shots. Was brought by his and friend who heard a loud thump and found patient unresponsive and foaming at the mouth. Patient has history of alcohol withdrawal seizures in the past. The seizure episode resolved by itself at home and then EMS was called and patient was brought to the ER. In ER patient was alert awake and oriented and denied remembering the incident although he did admit to having diarrhea. Patient told me that his diarrhea started only yesterday and he had 10-15 watery bowel movements. He denied any fever abdominal pain or blood in his stool. So denies any sick contacts. All other systems were reviewed and were negative Patient was admitted with alcohol withdrawal seizures and alcohol withdrawal. Started on Ativan and Precedex infusion admitted to ICU. He was also started on IV fluids and IV Flagyl. His stool came back positive for C diff Review of Systems Review of Systems: All systems reviewed & are unremarkable except as noted in HPI and below (HPI) PMFSH Past Medical History Medical H
--- NOTE | 2023-01-11 09:19 | PC.NURSE ---
Updated Sheridan, , via phone about plan of care and patient condition.
[2023-01-11] MEDS: POTASSIUM CHLORIDE 20 MEQ ER TABLET 40 MEQ PO (09:31)
[2023-01-11] MEDS: KCL 20 MEQ/0.45% NS 1,000 ML 100 ML IV CONT ×2 (09:32→19:48)
[2023-01-11] MEDS: chlordiazePOXIDE (*CRX) 10 MG CAPSULE PO ×2 (11:59→17:10)
[2023-01-11] MEDS: VANCOMYCIN ORAL 125 MG/2.5 ML SYRUP PO ×2 (11:59→17:10)
[2023-01-11] MEDS: NICOTINE (*PBKC) 14 MG PATCH 1 PATCH TRANSDERM (14:19)
--- NOTE | 2023-01-11 16:12 | PM.IMPN ---
Progress Note: A&P Assessment and Plan (1) Alcohol withdrawal seizure: Code(s): F10.939 - Alcohol use, unspecified with withdrawal, unspecified; R56.9 - Unspecified convulsions Status: Acute Assessment and Plan: The patient was placed in ICU on a Precedex drip. Application Support Developer has been consulted. P.r.n. Zofran. Continue with pantoprazole. The patient was noted to have a withdrawal seizure. Continue with folic acid and thiamin. P.r.n. Ativan. The patient is having liquid stools so I did order stool specimens. Continue to monitor magnesium and other electrolytes. Replace as necessary. Continue CIWA scores/evaluation. His alcohol level was less than 10. (2) Tachycardia: Code(s): R00.0 - Tachycardia, unspecified Status: Acute Assessment and Plan: Continue with normal saline. Most likely secondary to his alcohol withdrawal. Plan Patient presented after family heard a loud thump and was found to be unresponsive and foaming at the mouth. EMS was called and patient arrived to the upon arrival to the ED patient was alert oriented at baseline. Next suspected to have seizure. Patient has history of alcoholic and has been attempting to wean his alcohol down. No prior history seizure. Alcohol level of 0. Workup with leukocytosis of 12 okay hemoglobin of 10.5 HCT negative diagnosis alcohol withdrawal seizure tachycardic 120s placed on Precedex drip admitted to the ICU. Alcohol withdrawal protocol. Stool came back positive for C diff started on p.o. vancomycin 1 day history of watery diarrhea. IV thiamine folic acid transitioning to Librium oral. Recent history of admission for alcohol withdrawal longstanding history of chronic alcohol use. Subjective Date/time seen: 01/11/23 16:12 Interval history: Patient presented after family heard a loud thump and was found to be unresponsive and foaming at the mouth. EMS was called and patient arrived to the upon arrival to the ED patient was alert oriented at baseline. Next suspected to have seizure. Patient has history of alcoholic and has been attempting to wean his alcohol down. No prior history seizure. Alcohol level of 0. Workup with leukocytosis of 12 okay hemoglobin of 10.5 HCT negative diagnosis alcohol withdrawal seizure tachycardic 120s placed on Precedex drip admitted to the ICU. Alcohol withdrawal protocol. Stool came back positive for C diff started on p.o. vancomycin 1 day history of watery diarrhea. IV thiamine folic acid transitioning to Librium oral. Recent history of admission for alcohol withdrawal longstanding history of chronic alcohol use. Review of Systems Review of Systems: All systems reviewed & are unremarkable except as noted in HPI and below (HPI) Exam Narrative: General: Pt is alert awake and in NAD Lungs/Chest: Trachea central Clear BS B/L, No crackles or wheezing. Cardiac: RRR. Normal S1 S2. No murmurs Circulation: Pedal pulses are intact and symmetrical. Abdomen: Normal bowel sounds.. Soft. NT. ND. Extremities: No clubbing, cyanosis or edema. Warm : Berman in place Neurologic: Follows commands. Moves all 4 extremities PERRL AO x3. No tremor Skin: No Rash Objective Data Vital Signs Vital Signs: Vital Signs - 24 hr 01/10/23 16:15 01/10/23 16:30 01/10/23 16:36 Temperature Pulse Rate 146 H 147 H 147 H Pulse Rate [Bilateral Radial] Respiratory Rate 18 22 H 17 Blood Pressure 125/97 H Pulse Oximetry 95 97 98 Oxygen Delivery 01/10/23 16:45 01/10/23 16:46 01/10/23 16:47 Temperature Pulse Rate 146 H 147 H 146 H Pulse Rate [Bilateral Radial] Respiratory Rate 21 H 33 H 20 Blood Pressure 122/98 H Pulse Oximetry 98 98 96 Oxygen Delivery 01/10/23 16:59 01/10/23 16:59 01/10/23 17:23 Temperature 97.8 F Pulse Rate 148 H 149 H 149 H Pulse Rate [Bilateral Radial] Respiratory Rate 24 H 22 H Blood Pressure 122/98 H 121/92 H Pulse Oximetry 97 98 Oxygen Delivery
[2023-01-11 16:19] LABS: Anion Gap 5 mmol/L (8-16); Blood Urea Nitrogen 26 mg/dL (9-20); Calcium 8.2 mg/dL (8.4-10.2); Carbon Dioxide 23 mmol/L (22-30); Chloride 104 mmol/L (98-107); Estimated CRCL calculation 91 ml/min; Estimated Glomerular Filt Rate > 60; Glucose 93 mg/dL (65-110); Potassium 3.7 mmol/L (3.4-5.0); Sodium 132 mmol/L (137-145)
[2023-01-12] VITALS (8 sets, daily range): BP systolic 112–148; BP diastolic 61–97; PULSE 86–102; RESP 12–22; TEMP 36.4–36.9; O2SAT 99–100
[2023-01-12] MEDS: chlordiazePOXIDE (*CRX) 10 MG CAPSULE PO ×4 (00:03→17:17)
[2023-01-12] MEDS: VANCOMYCIN ORAL 125 MG/2.5 ML SYRUP PO ×4 (00:03→17:18)
[2023-01-12] MEDS: LORazepam (*CRX) 1 MG TABLET PO (00:03)
[2023-01-12] MEDS: KCL 20 MEQ/0.45% NS 1,000 ML 100 ML IV CONT (05:30)
[2023-01-12 05:37] LABS: Hematocrit 25.9 % (42.0-52.0); Hemoglobin 8.6 g/dL (14.0-18.0); Immature Platelet Fraction Pct 12.2 % (0.9-11.2); Mean Corpuscular HGB Conc 33.2 g/dl (32-36); Mean Corpuscular Hemoglobin 34.1 pg (26-34); Mean Corpuscular Volume 102.8 fl (80-100); Mean Platelet Volume 10.9 fl (7.4-10.4); Platelet Count Result 135 k/mm3 (150-375); Red Blood Count 2.52 M/mm3 (4.6-6.20); Red Cell Distribution Width 14.2 % (11.5-14.5); White Blood Count 8.4 K/mm3 (4.5-10.0)
[2023-01-12 05:48] LABS: Alanine Aminotransferase 22 U/L (6-50); Albumin Level 3.6 g/dL (3.5-5.1); Alkaline Phosphatase 71 U/L (38-126); Anion Gap 7 mmol/L (8-16); Aspartate Amino Transferase 35 U/L (17-59); Bilirubin,Total 0.4 mg/dL (0.2-1.3); Blood Urea Nitrogen 16 mg/dL (9-20); Calcium 8.2 mg/dL (8.4-10.2); Carbon Dioxide 24 mmol/L (22-30); Chloride 102 mmol/L (98-107); Estimated CRCL calculation 103 ml/min; Estimated Glomerular Filt Rate > 60; Glucose 90 mg/dL (65-110); Magnesium 1.7 mg/dL (1.6-2.3); Potassium 3.8 mmol/L (3.4-5.0); Sodium 133 mmol/L (137-145)
[2023-01-12] MEDS: FOLIC ACID 1 MG/0.2 ML INJ IV PUSH (08:19)
[2023-01-12] MEDS: THIAMINE HCL 200 MG/2 ML VIAL 100 MG IV PUSH (08:19)
[2023-01-12] MEDS: NICOTINE (*PBKC) 14 MG PATCH 1 PATCH TRANSDERM (08:20)
[2023-01-12] MEDS: PANTOPRAZOLE SODIUM IV 40 MG VIAL IV PUSH ×2 (08:20→21:08)
--- NOTE | 2023-01-12 09:50 | WPDINTPN ---
Progress Note: A&P Assessment and Plan (1) Alcohol withdrawal seizure: Code(s): F10.939 - Alcohol use, unspecified with withdrawal, unspecified; R56.9 - Unspecified convulsions Status: Acute Assessment and Plan: Patient presented with alcohol withdrawal seizures but none since admission Continue seizure precautions P.r.n. Ativan Head CT negative (2) Alcohol withdrawal: Qualifiers: Complication of substance-induced condition: uncomplicated Qualified Code(s): F10.930 - Alcohol use, unspecified with withdrawal, uncomplicated Code(s): F10.939 - Alcohol use, unspecified with withdrawal, unspecified Status: Acute Assessment and Plan: Continue IV fluids but decrease rate IV thiamine and folic acid Patient has been off of Precedex for more than 24 hours P.o. scheduled Librium and p.r.n. IV Ativan as per CIWA score CIWA monitoring (3) C. difficile diarrhea: Code(s): A04.72 - Enterocolitis due to Clostridium difficile, not specified as recurrent Status: Acute Assessment and Plan: Patient presented with 1 day history of watery diarrhea and his stool was positive for C diff Switch IV Flagyl to p.o. vancomycin. Continue Isolation IV fluids will be decreased No abdominal pain or tenderness on exam. Clinically improved (4) Electrolyte abnormality: Code(s): E87.8 - Other disorders of electrolyte and fluid balance, not elsewhere classified Status: Acute Assessment and Plan: Potassium improved after replacement (5) Thrombocytopenia: Code(s): D69.6 - Thrombocytopenia, unspecified Status: Acute Assessment and Plan: Chronic. Likely secondary to alcohol abuse Monitor Plan DVT prophylaxis -SCDs Stress ulcer prophylaxis -on PPI Nutrition -heart healthy diet Code Status - Full Code Incentive spirometry, up in chair, PT OT consult Transfer out of ICU Subjective Date/time seen: 01/12/23 Patient states he is feeling better and denies any specific complaints. He states he had 6 bowel movements over last 24 hours and they are now semi-solid. He denies any abdominal pain fever chest pain shortness of breath nausea vomiting. Patient has been off of Precedex since yesterday morning and required only 1 dose of Ativan overnight. He denies any shakes hallucination or delusions. Up all other systems were reviewed and were negative. Tolerating p.o. diet afebrile Good urine output Review of Systems Review of Systems: All systems reviewed & are unremarkable except as noted in HPI and below (HPI) Exam Narrative: General: Pt is alert awake and in NAD Lungs/Chest: Trachea central Clear BS B/L, No crackles or wheezing. Cardiac: RRR. Normal S1 S2. No murmurs Circulation: Pedal pulses are intact and symmetrical. Abdomen: Normal bowel sounds.. Soft. NT. ND. Extremities: No clubbing, cyanosis or edema. Warm : Berman in place Neurologic: Follows commands. Moves all 4 extremities PERRL AO x3. No tremor Skin: No Rash Objective Data Vital Signs Vital Signs: Vital Signs - 24 hr 01/11/23 10:00 01/11/23 10:00 01/11/23 10:00 Temperature Pulse Rate 74 74 74 Pulse Rate [Bilateral Radial] Respiratory Rate 12 12 Blood Pressure 81/55 L Pulse Oximetry 99 Oxygen Delivery 01/11/23 11:00 01/11/23 12:00 01/11/23 12:00 Temperature 37.2 C Pulse Rate 76 95 94 Pulse Rate [Bilateral Radial] Respiratory Rate 18 12 Blood Pressure 119/72 Pulse Oximetry 99 Oxygen Delivery 01/11/23 12:00 01/11/23 12:00 01/11/23 14:00 Temperature Pulse Rate 94 93 Pulse Rate [Bilateral Radial] 93 Respiratory Rate 12 Blood Pressure 119/72 Pulse Oximetry 99 Oxygen Delivery Room Air 01/11/23 14:00 01/11/23 16:00 01/11/23 16:00 Temperature 36.8 C Pulse Rate 93 96 100 Pulse Rate [Bilateral Radial] Respiratory Rate 18 18 Blood Pressure 116/83 138/87 Pulse Oximetry 99 Oxygen Delivery
[2023-01-12] MEDS: POTASSIUM CHLORIDE 20 MEQ ER TABLET PO (11:28)
--- NOTE | 2023-01-12 12:11 | PC.NURSE ---
This patient, Gerald Lewis, was received from ICU 8 on 01/12/23 at 1211. Patient/family oriented to unit policies and routines
--- NOTE | 2023-01-12 12:15 | PC.NURSE ---
This patient, Gerald Lewis, was transferred to [facility] on 01/12/23 at 1205. Personal belongings sent with patient. Report given to BABS Atkins. Appropriate documentation sent with patient.
--- NOTE | 2023-01-12 12:20 | PM.IMPN ---
Progress Note: A&P Assessment and Plan (1) Alcohol withdrawal seizure: Code(s): F10.939 - Alcohol use, unspecified with withdrawal, unspecified; R56.9 - Unspecified convulsions Status: Acute (2) Tachycardia: Code(s): R00.0 - Tachycardia, unspecified Status: Acute Plan 01/12/2023: patient presented after family heard a loud thump and was found to be unresponsive and foaming at the mouth. EMS was called and patient arrived to the upon arrival to the ED patient was alert oriented at baseline. Next suspected to have seizure. Patient has history of alcoholic and has been attempting to wean his alcohol down. No prior history seizure. Alcohol level of 0. Workup with leukocytosis of 12 okay hemoglobin of 10.5 HCT negative diagnosis alcohol withdrawal seizure tachycardic 120s placed on Precedex drip admitted to the ICU. Alcohol withdrawal protocol. Stool came back positive for C diff started on p.o. vancomycin 1 day history of watery diarrhea. IV thiamine folic acid transitioning to Librium oral. Recent history of admission for alcohol withdrawal longstanding history of chronic alcohol use. On Librium and p.o. vancomycin. Labs reviewed. Evaluated by PT OT Subjective Date/time seen: 01/12/23 12:20 Interval history: Patient presented after family heard a loud thump and was found to be unresponsive and foaming at the mouth. EMS was called and patient arrived to the upon arrival to the ED patient was alert oriented at baseline. Next suspected to have seizure. Patient has history of alcoholic and has been attempting to wean his alcohol down. No prior history seizure. Alcohol level of 0. Workup with leukocytosis of 12 okay hemoglobin of 10.5 HCT negative diagnosis alcohol withdrawal seizure tachycardic 120s placed on Precedex drip admitted to the ICU. Alcohol withdrawal protocol. Stool came back positive for C diff started on p.o. vancomycin 1 day history of watery diarrhea. IV thiamine folic acid transitioning to Librium oral. Recent history of admission for alcohol withdrawal longstanding history of chronic alcohol use. 01/12/2023 no overnight events. Off Precedex drip. Diarrhea has improved. Denies any abdominal pain. No nausea vomiting. Review of Systems Review of Systems: All systems reviewed & are unremarkable except as noted in HPI and below Exam Narrative: General: Pt is alert awake and in NAD Lungs/Chest: Trachea central Clear BS B/L, No crackles or wheezing. Cardiac: RRR. Normal S1 S2. No murmurs Circulation: Pedal pulses are intact and symmetrical. Abdomen: Normal bowel sounds.. Soft. NT. ND. Extremities: No clubbing, cyanosis or edema. Warm : Berman in place Neurologic: Follows commands. Moves all 4 extremities PERRL AO x3. No tremor Skin: No Rash Objective Data Vital Signs Vital Signs: Vital Signs - 24 hr 01/11/23 14:00 01/11/23 14:00 01/11/23 16:00 Temperature Pulse Rate 93 93 96 Pulse Rate [Bilateral Radial] Respiratory Rate 18 Blood Pressure 116/83 Pulse Oximetry 99 Oxygen Delivery 01/11/23 16:00 01/11/23 16:00 01/11/23 16:00 Temperature 98.3 F Pulse Rate 100 94 Pulse Rate [Bilateral Radial] 93 Respiratory Rate 18 12 Blood Pressure 138/87 138/87 Pulse Oximetry 99 Oxygen Delivery Room Air 01/11/23 18:00 01/11/23 18:00 01/11/23 20:00 Temperature Pulse Rate 80 100 90 Pulse Rate [Bilateral Radial] Respiratory Rate Blood Pressure 119/79 Pulse Oximetry 100 Oxygen Delivery 01/11/23 20:00 01/11/23 20:00 01/11/23 22:00 Temperature 98.2 F Pulse Rate 89 90 Pulse Rate [Bilateral Radial] Respiratory Rate 16 Blood Pressure 122/83 Pulse Oximetry 100 Oxygen Delivery Room Air 01/11/23 22:00 01/12/23 00:00 01/12/23 00:00 Temperature 98.2 F Pulse Rate 90 101 H 91 Pulse Rate [Bilateral Radial] Respiratory Rate 15 22 H Blood Pressure 100/59 L 135/77 Pulse Oximetry 100 100 Oxygen Delive
[2023-01-12] MEDS: KCL 20 MEQ/0.45% NS 1,000 ML 50 ML IV CONT (21:11)
[2023-01-13] MEDS: LORazepam INJ (*CRX) 2 MG/ML VIAL IV PUSH (00:58)
[2023-01-13] MEDS: chlordiazePOXIDE (*CRX) 10 MG CAPSULE PO ×3 (00:59→11:05)
[2023-01-13] MEDS: VANCOMYCIN ORAL 125 MG/2.5 ML SYRUP PO ×3 (01:01→11:05)
[2023-01-13 06:00] VITALS: BP 140/91; PULSE 92; RESP 20; TEMP 36.6; O2SAT 100
[2023-01-13 06:02] LABS: Hematocrit 27.7 % (42.0-52.0); Hemoglobin 9.2 g/dL (14.0-18.0); Mean Corpuscular HGB Conc 33.2 g/dl (32-36); Mean Corpuscular Hemoglobin 33.6 pg (26-34); Mean Corpuscular Volume 101.1 fl (80-100); Mean Platelet Volume 10.6 fl (7.4-10.4); Platelet Count Result 155 k/mm3 (150-375); Red Blood Count 2.74 M/mm3 (4.6-6.20); Red Cell Distribution Width 13.9 % (11.5-14.5); White Blood Count 9.5 K/mm3 (4.5-10.0)
[2023-01-13 06:20] LABS: Alanine Aminotransferase 25 U/L (6-50); Albumin Level 4.1 g/dL (3.5-5.1); Alkaline Phosphatase 74 U/L (38-126); Anion Gap 6 mmol/L (8-16); Aspartate Amino Transferase 33 U/L (17-59); Bilirubin,Total 0.4 mg/dL (0.2-1.3); Blood Urea Nitrogen 10 mg/dL (9-20); Calcium 8.9 mg/dL (8.4-10.2); Carbon Dioxide 26 mmol/L (22-30); Chloride 100 mmol/L (98-107); Estimated CRCL calculation 103 ml/min; Estimated Glomerular Filt Rate > 60; Glucose 91 mg/dL (65-110); Magnesium 1.6 mg/dL (1.6-2.3); Potassium 3.6 mmol/L (3.4-5.0); Sodium 132 mmol/L (137-145)
[2023-01-13 09:52] VITALS: O2SAT 100
--- NOTE | 2023-01-13 12:42 | PM.DS ---
DS: Admitting Diagnosis Discharge Date 01/13/2023 Admitting Diagnosis Alcohol withdrawal seizure DS: Summary Hospital Course Hospital Course: patient presented after family heard a loud thump and was found to be unresponsive and foaming at the mouth.? EMS was called and patient arrived to the upon arrival to the ED patient was alert oriented at baseline.? Patient suspected to have seizure.? Patient has history of alcoholic and has been attempting to wean his alcohol down.? No prior history seizure.? Alcohol level of 0 on arrival to the ED. Workup with leukocytosis of 12 okay hemoglobin of 10.5 HCT negative. He was diagnosed with alcohol withdrawal seizure. Patient was tachycardic in 120s and was placed on Precedex drip admitted to the ICU.? Alcohol withdrawal protocol was initiated.? He also noted to have diarrhea and his stool was tested. Stool came back positive for C diff started on p.o. vancomycin 1 day history of watery diarrhea.? IV thiamine folic acid transitioning to Librium oral.? Recent history of admission for alcohol withdrawal longstanding history of chronic alcohol use. He will continue Librium and will be tapered off as an outpatient basis. Discussed about alcohol dependence and outpatient follow-up with regard to this he goes to outpatient center for this. Will finish vancomycin for his C diff colitis. Stool already improved Time Spent with Patient Time attestation: Total time spent providing and/or coordinating discharge services: 40 minutes Exam Narrative: General: Pt is alert awake and in NAD Lungs/Chest: Trachea central Clear BS B/L, No crackles or wheezing. Cardiac: RRR. Normal S1 S2. No murmurs Circulation: Pedal pulses are intact and symmetrical. Abdomen: Normal bowel sounds.. Soft. NT. ND. Extremities: No clubbing, cyanosis or edema. Warm : Berman in place Neurologic: Follows commands. Moves all 4 extremities PERRL AO x3. No tremor Skin: No Rash DS: Data Data Completed and Pending Labs on day of discharge: Labs from last 24 hours 01/13/23 01/10/23 05:46 13:28 WBC 9.5 RBC 2.74 L Hgb 9.2 L Hct 27.7 L MCV 101.1 H MCH 33.6 MCHC 33.2 RDW 13.9 Plt Count 155 MPV 10.6 H Sodium 132 L Potassium 3.6 Chloride 100 Carbon Dioxide 26 Anion Gap 6 L BUN 10 D Creatinine 0.70 Estim Creat Clear Calc 103 Estimated GFR > 60 Glucose 91 Calcium 8.9 Magnesium 1.6 Total Bilirubin 0.4 AST 33 ALT 25 Alkaline Phosphatase 74 Total Protein 7.0 Albumin 4.1 Urine Color Cancelled Urine Appearance Cancelled Urine pH Cancelled Ur Specific [place] Cancelled Urine Protein Cancelled Urine Glucose (UA) Cancelled Urine Ketones Cancelled Ur Blood (Man) Cancelled Urine Nitrate Cancelled Urine Bilirubin Cancelled Urine Urobilinogen Cancelled Add Ur Microanalysis Cancelled Leukocyte Esterase Rfl Cancelled Urine RBC Cancelled Urine WBC Cancelled Urine WBC Clumps Cancelled Ur Squamous Epith Cells Cancelled Ur Transition Epith Cell Cancelled Ur Renal Epithelial Cell Cancelled [place] Biurate Crystals Cancelled Calcium Carbonate Cryst Cancelled Calcium Phosphate Cryst Cancelled Calcium Oxalate Crystal Cancelled Leucine Crystals Cancelled Cystine Crystals Cancelled Uric Acid Crystals Cancelled Triple Phos Crystals Cancelled Sulfonamide Crystals Cancelled Cholesterol Crystals Cancelled Talc Crystals Cancelled Tyrosine Crystals Cancelled Hippuric Acid Crystals Cancelled Bilirubin Crystals Cancelled Other Crystals Cancelled Amorphous Sediment Cancelled Other Sediment Cancelled Urine Bacteria Cancelled Urine Casts Cancelled Cellular Casts Cancelled Epithelial Casts Cancelled Fatty Casts Cancelled Hyaline Casts Cancelled Granular Casts Cancelled Waxy Casts Cancelled Broad Casts Cancelled RBC Casts Cancelled WBC Casts Cancelled Urine Starch Cancelled Urine Mucus
== END 2023-01-13 12:55 | disposition home or self-care (01) | DRG 775 ==
LOC: ANHED 13:34 → ANHICU 17:44 → ANH3MED 01-12 11:59
PROVIDERS: Emergency Medicine; Internal Medicine; Nurse Practitioner; Admitting Provider Chiropractor; Emergency Provider Emergency Medicine; PCP Family Medicine; Visit Provider Internal Medicine
DX: F10.239 Alcohol dependence with withdrawal, unspecified (principal); D69.59 Other secondary thrombocytopenia; E87.8 Other disorders of electrolyte and fluid balance, not elsewhere classified; A04.72 Enterocolitis due to Clostridium difficile, not specified as recurrent; E78.5 Hyperlipidemia, unspecified; G40.89 Other seizures; Y90.0 Blood alcohol level of less than 20 mg/100 ml; I10 Essential (primary) hypertension; G47.33 Obstructive sleep apnea (adult) (pediatric); F17.210 Nicotine dependence, cigarettes, uncomplicated; R00.0 Tachycardia, unspecified; D72.829 Elevated white blood cell count, unspecified
CPT/HCPCS: 36415; 70450; 80048; 80053; 80307; 82274; 82607; 82746; 82948; 83605; 83690; 83735; 84443; 85025; 85027; 85055; 85610; 85730; 87045; 87269; 87272; 87427; 87493; 89055; 93005; 96361; 96374; 96375; 97162; 97165; 99285; A9270; C9113; J1836; J2060; J3411; J3480; J7030

== ENCOUNTER 2023-02-10 17:38 | Emergency (ER) | payer OTHER, SELFPAY ==
[2023-02-10 18:06] VITALS: BP 141/94; PULSE 115; RESP 16; TEMP 36.6; O2SAT 98
--- NOTE | 2023-02-10 20:44 | ED.BACK ---
HPI - Back Pain/Injury General Chief Complaint: Back Pain/Injury <Amber Marcus PA-C - Last Filed: 02/11/23 02:47> Stated Complaint: back pain <Amber Marcus PA-C - Last Filed: 02/11/23 02:47> Time Seen by Provider: 02/10/23 20:24 <Amber Marcus PA-C - Last Filed: 02/11/23 02:47> History of Present Illness HPI Narrative: 57-year-old male with a history of alcohol abuse, radiculopathy, chronic back pain, degenerative disc disease reports for evaluation for back pain x9 months. Patient states he came into the ED today due to uncontrollable pain and difficulty ambulating secondary to pain. He states the pain is throughout his entire low back, worse on the right side and radiates down to the anterior proximal aspect of his left thigh. Patient has been to physical therapy without improvement. He had an MRI of the lumbar spine on October 24, 2022 that showed multilevel spondylotic changes. He was evaluated by neurosurgeon Dr. Gallegos on 01/24 who advised to exhaust nonsurgical options prior to consideration of surgery. The patient states he was scheduled to see pain management, but when he attended his appointment, states that they told him he is not on the schedule. He has an appointment coming up on March 04 with pain management. Reports he has tried Celebrex, meloxicam, muscle relaxers, ibuprofen and gabapentin in the past without relief. He denies changes in pain, recent trauma or procedures, recent injury, focal numbness or weakness, saddle anesthesia, loss of bowel or bladder control or retention, fever, IVDU. <NOEMY Joyce Last Filed: 02/11/23 02:47> Related Data Home Medications: Home Medications Medication Instructions Recorded Confirmed bupropion HCl (smoking deter) 150 150 mg PO DAILY 01/16/23 01/16/23 mg tablet,12 hr sustained-release(smoking deterrent) lisinopril 10 mg tablet 10 mg PO DAILY 01/16/23 01/16/23 <NOEMY Joyce Last Filed: 02/11/23 02:47> Allergies/Adverse Reactions: Allergies Allergy/AdvReac Type Severity Reaction Status Date / Time No Known Allergies Allergy Verified 01/16/23 10:56 <Amber Marcus PA-C - Last Filed: 02/11/23 02:47> Review of Systems Review of Systems: CONSTITUTIONAL: Denies fever, chills EYES: Denies visual changes, redness, or discharge. ENT: Denies rhinorrhea, congestion, sore throat, or otalgia. CARDIOVASCULAR: Denies chest pain, palpitations, or edema. RESPIRATORY: Denies cough or dyspnea. GASTROINTESTINAL: Denies abdominal pain, nausea, vomiting, or diarrhea. GENITOURINARY: Denies dysuria or hematuria. SKIN: Denies rash or itching. MUSCULOSKELETAL: See HPI NEUROLOGIC: Denies headache, numbness, dizziness, or weakness. PSYCHIATRIC: Denies anxiety or depression. <Amber Marcus PA-C - Last Filed: 02/11/23 02:47> [facility] Past Medical History Medical History: Medical History Alcohol abuse Alcohol withdrawal seizure Alcoholism B12 deficiency H/O finger fracture Hearing loss Hyperlipidemia Hypertension Obstructive sleep apnea Radiculopathy Tobacco abuse Vitamin D deficiency <Amber Marcus PA-C - Last Filed: 02/11/23 02:47> Surgical History Surgical History: Surgical History History of bilateral carpal tunnel release History of repair of right rotator cuff <Amber Marcus PA-C - Last Filed: 02/11/23 02:47> Family History Family History: Family History Mother Family history of diabetes mellitus in first degree relative Cerebrovascular accident Cancer Hypertension Father Spleen cancer Asthma Cancer Sibling Acute myocardial infarction, Onset Age: 46 <Amber Marcus PA-C - Last Filed: 02/11/23 02:47> Social History Social History: Social His
[2023-02-10] MEDS: CYCLOBENZAPRINE HCL 10 MG TABLET PO (20:52)
[2023-02-10] MEDS: KETOROLAC 30 MG/ML VIAL (*BKC) IM (20:52)
[2023-02-10] MEDS: LIDOCAINE 5% PATCH 1 PATCH (21:06)
[2023-02-10 21:08] VITALS: PULSE 107; RESP 18; TEMP 36.6; O2SAT 100
[2023-02-10 21:25] VITALS: BP 162/99; PULSE 95; RESP 18; O2SAT 100
== END 2023-02-10 21:53 | disposition home or self-care (01) ==
LOC: ANHED 20:55
PROVIDERS: Emergency Provider Physician Assistant; PCP Family Medicine
DX: M54.16 Radiculopathy, lumbar region (principal); E78.5 Hyperlipidemia, unspecified; I10 Essential (primary) hypertension; E53.8 Deficiency of other specified B group vitamins; E55.9 Vitamin D deficiency, unspecified; G47.33 Obstructive sleep apnea (adult) (pediatric); F17.210 Nicotine dependence, cigarettes, uncomplicated
CPT/HCPCS: 96372; 99283; A9270; J1885

== ENCOUNTER 2023-05-31 08:18 | Outpatient (CLI) | payer OTHER, SELFPAY ==
[2023-05-31 09:08] LABS: Basophils Absolute Auto 0.1 K/mm3 (0.0-0.1); Basophils Percent Auto 0.7 % (0.2-1.2); Eosinophils Absolute Auto 0.4 K/mm3 (0-0.3); Eosinophils Percent Auto 4.3 % (0-4.4); Hematocrit 38.8 % (42.0-52.0); Hemoglobin 12.7 g/dL (14.0-18.0); Immature Granulocyte Absolute 0.02 K/mm3 (0.00-0.031); Immature Granulocyte Percent A 0.2 % (0-0.5); Lymphocytes Absolute Auto 2.61 K/mm3 (0.9-3.2); Lymphocytes Percent Auto 32.2 % (18.3-44.2); Mean Corpuscular HGB Conc 32.7 g/dl (32-36); Mean Corpuscular Hemoglobin 33.2 pg (26-34); Mean Corpuscular Volume 101.6 fl (80-100); Mean Platelet Volume 11.9 fl (7.4-10.4); Monocytes Absolute Auto 0.9 K/mm3 (0.1-0.6); Monocytes Percent Auto 11.1 % (2.6-8.5); Neutrophils Absolute Auto 4.2 K/mm3 (1.3-6.7); Neutrophils Percent Auto 51.5 % (45.5-73.1); Platelet Count Result 247 k/mm3 (150-375); Red Blood Count 3.82 M/mm3 (4.6-6.20); Red Cell Distribution Width 13.4 % (11.5-14.5); White Blood Count 8.1 K/mm3 (4.5-10.0)
[2023-05-31 09:21] LABS: Prothrombin Time 13.1 Seconds (11.1-14.7)
[2023-05-31 09:22] LABS: Ethanol < 10 mg/dL (<10); Partial Thromboplastin Time 27.3 SECONDS (22.3-36.8)
[2023-05-31 09:25] LABS: Alanine Aminotransferase 42 U/L (6-50); Alkaline Phosphatase 108 U/L (38-126); Anion Gap 11 mmol/L (8-16); Aspartate Amino Transferase 42 U/L (17-59); Bilirubin,Total 0.6 mg/dL (0.2-1.3); Blood Urea Nitrogen 12 mg/dL (9-20); Calcium 9.2 mg/dL (8.4-10.2); Carbon Dioxide 21 mmol/L (22-30); Chloride 103 mmol/L (98-107); Estimated Glomerular Filt Rate > 60; Glucose 106 mg/dL (65-110); Potassium 4.5 mmol/L (3.4-5.0); Sodium 135 mmol/L (137-145)
== END 2023-05-31 08:19 | disposition home or self-care (01) ==
LOC: ANHLAB 08:20
PROVIDERS: PCP Family Medicine; Visit Provider Anesthesiology Pain Medicine
DX: F10.10 Alcohol abuse, uncomplicated (principal); D64.9 Anemia, unspecified; D72.829 Elevated white blood cell count, unspecified; E87.1 Hypo-osmolality and hyponatremia; E87.6 Hypokalemia
CPT/HCPCS: 36415; 80053; 80307; 85025; 85610; 85730

== ENCOUNTER 2023-10-06 06:56 | Outpatient (CLI) | payer OTHER, SELFPAY ==
--- NOTE | ~2023-10-06 | CT_ITS ---
CT Scan of the Chest without Contrast: Clinical Indication: Solitary pulmonary nodule Technique: Contiguous sections were acquired throughout the chest without intravenous contrast. Dose reduction technique was used on this scan by utilizing automated exposure control and iterative recon struction technique. The dose-length product (DLP) was 133.53 mGy-cm. Findings: There is no evidence of any significant mediastinal, hilar or axillary lymphadenopathy. The mediastin al soft tissues appear normal. Aberrant right subclavian artery noted. There is no evidence of pleural or pericardial effusion. 6 mm left upper lobe pulmonary nodule present. Right lung clear. Images through the upper abdomen reveal diffuse hepatic steatosis. Impression: 6 mm left upper lobe pulmonary nodule. According to Fleischner Society criteria, for a low-risk patie nt, follow-up CT in 6-12 months recommended, then consider additional 18-[address] For a high-risk patient, follow-up CT scans at both 6-12 months and 18-24 months are recommended. Reviewed, dictated and finalized at [facility]. Impression: 6 mm left upper lobe pulmonary nodule. According to Fleischner Society criteria , for a low-risk patient, follow-up CT in 6-12 months recommended, then conside r additional 18-[address] For a high-risk patient, follow-up CT scans at bot h 6-12 months and 18-24 months are recommended.
== END 2023-10-06 06:57 | disposition home or self-care (01) ==
PROVIDERS: PCP Family Medicine; Visit Provider Physician Assistant
DX: R91.1 Solitary pulmonary nodule (principal); R06.09 Other forms of dyspnea; Z87.891 Personal history of nicotine dependence
CPT/HCPCS: 71250; 94060; 94726; 94729

== ENCOUNTER 2024-05-19 13:29 | Emergency (ER) | payer OTHER, SELFPAY ==
[2024-05-19 13:44] VITALS: BP 131/74; PULSE 111; RESP 16; TEMP 36.3; O2SAT 97
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
== END 2024-05-19 13:46 | disposition left against medical advice (07) ==
PROVIDERS: Emergency Provider Nurse Practitioner Family; PCP Family Medicine
DX: S51.001A Unspecified open wound of right elbow, initial encounter (principal); S71.101A Unspecified open wound, right thigh, initial encounter; X99.8XXA Assault by other sharp object, initial encounter; R41.82 Altered mental status, unspecified; F17.210 Nicotine dependence, cigarettes, uncomplicated; F12.90 Cannabis use, unspecified, uncomplicated; K74.60 Unspecified cirrhosis of liver; E78.5 Hyperlipidemia, unspecified; I10 Essential (primary) hypertension
CPT/HCPCS: 99211; G0463